=== PATIENT | male | born 1940 | race Caucasian/White ===

== ENCOUNTER 2016-10-19 04:32 | Inpatient (IN) ==
[2016-10-19] MEDS ORDERED: ASPIRIN 325 MG TABLET PO STA (04:52)
[2016-10-19] MEDS ORDERED: SODIUM CHLORIDE 0.9% 1,000 ML IV STA ×2 (04:52→08:41)
--- NOTE | 2016-10-19 04:55 | EKG Report ---
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
[2016-10-19] MEDS ORDERED: ASPIRIN 325 MG TABLET ONE (05:07)
[2016-10-19] MEDS ORDERED: ONDANSETRON 4 MG/2 ML VIAL ONE ×2 (05:07→08:24)
[2016-10-19] MEDS ORDERED: ONDANSETRON 4 MG/2 ML VIAL IV STA ×2 (05:27→08:41)
[2016-10-19] MEDS ORDERED: ACETAMINOPHEN 500 MG TABLET PO STA (05:38)
[2016-10-19] MEDS ORDERED: ACETAMINOPHEN 500 MG TABLET ONE (05:39)
[2016-10-19 05:41] LABS: Basophils % 0.5 % (0.0-0.8); Eosinophils % 0.9 % (0.00-10.9); Hematocrit 27.8 VOL% (42.0-52.0); Hemoglobin 9.6 GM/DL (14.0-18.0); Immature Granulocytes % 0.7 %; Immature Granulocytes Absolute 0.03 #; Lymphocytes # 0.7 10*3/uL (1.4-4.0); Lymphocytes % 16.1 % (21.2-54.2); Mean Corpuscular HGB Conc 34.5 GM/DL (32-36); Mean Corpuscular Hemoglobin 37 PG (27-34); Mean Corpuscular Volume 108.2 FL (87-102); Mean Platelet Volume 10.9 FL (9.6-12.0); Monocytes # 0.3 10*3/uL (0.11-0.8); Monocytes % 6.9 % (1.7-12.7); NRBC # 0.12 10*3/uL; Neutrophils # 3.3 10*3/uL (1.4-7.4); Neutrophils % 74.9 % (38.7-73.9); Platelet Count 167 T/CUMM (130-400); Red Blood Count 2.57 MC/CUMM (3.8-5.5); Red Cell Distribution Width 15.9 % (9.3-17.3); White Blood Count 4.3 T/CUMM (4-12)
[2016-10-19 05:52] LABS: Apearance,Urine Slightly Hazy (Clear); Bacteria,Urine Occasional /HPF (Few); Bilirubin,Urine Negative (Negative); Blood, Urine Negative (Negative); Glucose,Urine (UA) 50 mg/dL (Negative); Ketones,Urine Negative (Negative); Mucus,Urine Occasional /LPF (Occasional); Nitrite,Urine Negative (Negative); Protein,Urine Negative; RBC,Urine 3 /HPF (0-4); Squamous Epithelial Cell,Urine Occasional /HPF (0-10); Urine Color Yellow (Yellow); Urine Specific Gravity 1.016 (1.001-1.035); Urine Urobilinogen < 2.0 EU/DL (0.2-1.0); WBC,Urine 124 /HPF (0-6)
[2016-10-19] MEDS ORDERED: cefTRIAXone 1,000 MG in SODIUM CHLORIDE 0.9% 100 ML IV STA (05:57)
[2016-10-19] MEDS ORDERED: NITROGLYCERIN SL 0.4 MG TABLET SL ONE (05:59)
[2016-10-19] MEDS ORDERED: NITROGLYCERIN SL 0.4 MG TABLET SL STA (05:59)
[2016-10-19 06:02] LABS: Bilirubin,Total 0.7 MG/DL (0.2-1.0); Calcium 8.6 MG/DL (8.5-10.1); Osmolality,Calculated 286.8 MOS/KG (273-304); Potassium 4.4 MMOL/L (3.5-5.1); Total Protein 7.1 G/DL (6.4-8.3)
[2016-10-19] MEDS ORDERED: cefTRIAXone 1,000 MG VIAL ONE (06:04)
[2016-10-19] MEDS ORDERED: ALUM/MAG/SIMETH/LIDO VISC 1:1 30 ML BOTTLE PO ONE (06:08)
[2016-10-19] MEDS ORDERED: ALUM/MAG/SIMETH/LIDO VISC 1:1 30 ML BOTTLE PO STA (06:10)
[2016-10-19 06:28] LABS: Anisocytosis 1+; Band Neutrophils 7 % (0-10); Eosinophils 1 % (0-10); Lymphocytes 16 % (20-55); Macrocytosis 1+; Metamyelocytes 3 %; Nucleated Red Blood Cells 3 (0-5); Platelet Estimate Normal; Polychromasia Few; Segmented Neutrophils 68 % (50-85); Total Cells Counted 100
--- NOTE | 2016-10-19 07:47 | XRay Report ---
Portable chest Date: 10/19/2016 Clinical history: Chest pain Comparison: 12/19/2015 Technique: Portable AP sitting chest Findings: The heart is minimally enlarged with prior median sternotomy. Chronic scarring in the lungs. Stable mediastinum and osseous structures. Post operative findings at the cervicothoracic junction. Impression: No acute cardiopulmonary pathology identified. PROCEDURE INTERPRETED AT [facility]PARTMENT OF RADIOLOGY Final Report Signed by: Dr. Iona Smith
[2016-10-19] MEDS ORDERED: HYDROmorphone 2 MG/1 ML VIAL ONE (08:25)
[2016-10-19] MEDS ORDERED: HYDROmorphone 2 MG/1 ML VIAL IV ONE (08:40)
[2016-10-19] MEDS: SODIUM CHLORIDE 0.9% 1,000 ML IV SCH ×2 (08:43→16:44)
[2016-10-19] MEDS: PANTOPRAZOLE 40 MG TABLET PO SCH (09:36)
[2016-10-19] MEDS: DOCUSATE SODIUM 100 MG CAPSULE PO SCH ×2 (09:36→20:37)
[2016-10-19] MEDS: ENOXAPARIN 40 MG/0.4 ML SYRINGE SUBCUT SCH (09:37)
--- NOTE | 2016-10-19 10:29 | EKG Report ---
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
[2016-10-19 10:35] LABS: CKMB % 11.9 %
[2016-10-19 10:36] LABS: Troponin I Only 0.913 NG/ML (0.00-0.045)
--- NOTE | 2016-10-19 11:32 | Family Practice History&Phys ---
Assessment and Plan (1) Chest pain Status: Acute Assessment and plan: Apparently had a episode of significant chest pain with nausea vomiting early this a.m. Has known history of myocardial infarction 3, congestive heart failure, coronary bypass graft 2, previous angioplasty. Enzymes slightly elevated on admission. Will monitor and ask cardiology to assess Current Visit: Yes (2) UTI (urinary tract infection) Status: Acute Assessment and plan: Patient admitted with probable urinary tract infection with fever and chills. Cultures have been obtained and presently on empiric antibiotics. Has a history of myeloproliferative disease but present WBC is 4,300. Current Visit: Yes (3) CAD (coronary artery disease) Status: Chronic Assessment and plan: Has had trouble with unstable angina Current Visit: No (4) Hx of CABG Status: Chronic Assessment and plan: Status post coronary artery bypass graft 2 Current Visit: No (5) Myeloproliferative disease Status: Acute Assessment and plan: This is being followed by Dr. Haile. Current Visit: Yes (6) Diabetes mellitus Status: Chronic Assessment and plan: Stable at present. Will resume home medications and start sliding scale Current Visit: No Qualifiers: Diabetes mellitus type: type 2 Diabetes mellitus complication status: without complication Qualified Code(s): E11.9 - Type 2 diabetes mellitus without complications (7) Hypertension Status: Chronic Assessment and plan: Stable on present medications Current Visit: No Qualifiers: Hypertension type: essential hypertension Qualified Code(s): I10 - Essential (primary) hypertension History of Present Illness Chief complaint: Urinary tract infection and chest pain History of present illness: Mr. Allred is a 76 year old male PI Narrative: Patient is a 76 y/o male presenting to the ED with c/o chest pain which onset tonight. at the bedside is providing most of patient's history. She states that prior to going to bed tonight patient was fine. Upon coming back from urinating this morning patient came back complaining of severe dysuria. She states that patient also began to display tremors of bilateral hands, episodes of N/V, confusion, and had a fever of 100. During triage patient was noted to be febrile with a fever of 103.8. notes that patient was recently diagnosed with MDS and is a patient of Dr. Haile. Patient was given an injection of Procrit on 10/14 and his current sxs are the typical SE's of this injections per . She reports that patient's complaint of chest pain in the midst of the other sx's concerned her. She initially thought this chest pain may be stress related, but due to patient's significant cardiac history she became concerned. Patient did take a NTG PROMOTION MANAGER and states that his pain has somewhat eased off, but is not totally resolved. states that all of patient's small arteries are totally occluded. His last cardiac catheterization was about 2 years ago. He was last seen by his Continuous Process Rotary Drum Tanner, Dr. Vásquez a few months ago. PMHx significant for Cardiac Dysrhythmia, CHF, CAD, HTN, ND. Patient apparently saw Dr. Bassett on of this week for follow-up of his myeloproliferative disease. In view of history we will transfer her to telemetry for admission and consult cardiology in view of his significant history of coronary artery disease. Home Medications Medication Instructions Recorded Confirmed Type RX: Aspirin [Ecotrin] 81 mg PO DAILY 03/31/15 10/19/16 History RX: Calcium (Carb)/Vit D 500-200 1 tablet PO DAILY 03/31/15 10/19/16 History [Oscal 500 + D] RX: Carvedilol [Coreg] 12.5 mg PO BID 03/31/15 10/19/16 History RX: Digoxin Tab [Lanoxin Tab] 0.125 mg PO DAILY 03/31/15 10/19/16 History RX: Fenofibrate [Tricor] 145 mg PO DAILY 03/31/15 10/19/16 History RX: Furosemide Tab [Lasix Tab] 20 mg PO DAILY 03/31/15 10/19/16 History RX: Insulin Glargine [Lantus] 40 unit SUBCUT AC BREAKFAST 03/31/15 10/19/16 History RX: Oxycodone HCl/Acetaminophen 1 each PO QID PRN 04/08/15 10/19/16 History [Percocet 10-325 mg Tablet] RX: Atorvastatin [Lipitor] 40 mg PO DAILY 12/17/15 10/19/16 History RX: Glimepiride [Amaryl] 4 mg PO BID W/MEALS 12/17/15 10/19/16 History RX: Olmesartan [Benicar] 20 mg PO DAILY 12/17/15 10/19/16 History RX: Omeprazole 20 mg PO DAILY 12/17/15 10/19/16 History RX: Polyethylene Glycol Powder 17 gm PO DAILY 12/17/15 10/19/16 History [Miralax] RX: amLODIPine [Norvasc] 5 mg PO DAILY 12/17/15 10/19/16 History Nitroglycerin Sl Tab [Nitrostat] 0.4 mg SL Q5M PRN 12/20/15 10/19/16 History Fluticasone Propionate [Flonase 1 spray BOTH NARES DAILY 10/19/16 10/19/16 History Allergy Relief] Allergies Allergy/AdvReac Type Severity Reaction Status Date / Time ibuprofen Allergy Severe Unknown/Unable Verified 10/19/16 04:41 to obtain meperidine Allergy Severe RASH Verified 10/19/16 04:41 morphine Allergy Severe ITCHING Verified 10/19/16 04:41 epinephrine AdvReac Severe Shakiness Verified 10/19/16 04:41 STEROIDS AdvReac Intermediate Shakiness Uncoded 10/19/16 04:41 Medical,Surgical,& Family Hx - Medical History Cardio: History of: Cardiac Dysrhythmia (a fib), CHF, CAD, Hypertension, ND (X3) , Cardiovascular Problems (DR Vásquez [place] ATTOR[facility]. LAST SAW IN HOSPITAL 2 WEEKS.) Psychological: History of: Anxiety Disorders Neurology: History of: Migraine HEENT: History of: Ear Problem (hearing aids) Endocrine: History of: Diabetes Mellitus (IDDM) Respiratory: History of: Bronchitis, Respiratory Problems (STAPH INFECTION IN LUNGS) Renal: History of: Renal Failure (insufficiency) Genitourinary: History of: Prostate Problems Gastrointestinal: History of: GERD No history of: Gastrointestinal Bleed Musculoskeletal: History of: Back/Neck Problems (chronic back pain.) No history of: Amputation Hematology: History of: Anemia (MDS (sees Dr. Haile)) - Surgical History Cardiac Surgeries: Sugical HX of: Cardiac Surgery (2 bypass, stent placement), Carotid Endarterectomy Thoracic Surgeries: Patient denies;: Organ Transplant, Lobectomy Neurologic Surgeries: Patient denies: Neurologic Surgery HEENT Surgeries: Surgical HX of: Carotid Endarterectomy, Eye Surgery (BILATERAL CATARACT SURGERY, LT EYE SURGERY [address] WEISS.) Patient denies: Tonsilectomy & Adenoidectomy Abdominal Surgeries: Surgical HX of: Abdominal Surgery, Colonoscopy, EGD Reproductive Surgeries: Patient denies;: Genitourinary Surgery Orthopedic Surgeries: Surgical HX of;: Spinal Surgery (X6 NECK, BACK X4 LOWER BACK 2005.) - Family History Family History: Reports;: Family Diabetes, Family Heart Disease, Family Hypertension - Social History Smoking Status: Unknown if ever smoked Frequency of Alcohol Use: None Type of Drug Use: None Marital Status: Lives With:: Spouse Functional capacity: uses cane/walker Exam - Constitutional Vitals: Period Temp Pulse Resp BP Sys/Humphries Pulse Ox Last 24 Hr 98.3 F-103.8 F 98-100 18-20 118-140/62-76 94-96 General appearance: mild distress - Head Head exam: Present: normal inspection - Eye Pupils: Present: DANIEL - ENT ENT exam: Present: normal exam - Respiratory Respiratory exam: Present: clear to auscultation bilaterally - Cardiovascular Cardiovascular exam: Present: irregular rhythm - GI/Abdominal GI/Abdominal exam: Present: normal bowel sounds, soft - Extremities Exam Extremities exam: Present: normal inspection - Back Exam Back exam: Present: vertebral tenderness - Neurological Exam Neurological exam: Present: alert, oriented X3 - Psychiatric Psychiatric exam: Present: normal affect - Skin Skin exam: Present: normal color Results - Labs CBC & BMP: 10/19/16 05:10 10/19/16 05:10
--- NOTE | 2016-10-19 12:20 | EKG Report ---
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
[2016-10-19] MEDS ORDERED: NITROGLYCERIN SL 0.4 MG TABLET SL PRN (13:22)
[2016-10-19] MEDS: oxyCODONE/ACETAMINOPHEN 5-325 MG TABLET PO PRN ×2 (14:40→20:37)
[2016-10-19] MEDS: ASPIRIN EC 81 MG TABLET PO SCH (14:41)
[2016-10-19] MEDS: CALCIUM (CARBONATE)/VITAMIN D 500 MG-200 UNIT TABLET PO SCH (14:41)
[2016-10-19] MEDS: amLODIPine 5 MG TABLET PO SCH (14:41)
[2016-10-19] MEDS: FUROSEMIDE 20 MG TABLET PO SCH (14:42)
[2016-10-19] MEDS: OLMESARTAN 20 MG TABLET PO SCH (14:42)
[2016-10-19] MEDS: FENOFIBRATE 145 MG TABLET PO SCH (14:42)
[2016-10-19] MEDS: DIGOXIN 0.125 MG TABLET PO SCH (14:43)
[2016-10-19] MEDS: CARVEDILOL 12.5 MG TABLET PO SCH ×2 (14:44→22:41)
[2016-10-19] MEDS: FLUTICASONE 50 MCG NASAL SPRAY 16 GM BOTTLE BOTH NARES SCH ×2 (14:44→20:40)
[2016-10-19] MEDS: POLYETHYLENE GLYCOL POWDER 17 GM PACK PO SCH (14:46)
--- NOTE | 2016-10-19 14:59 | EKG Report ---
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
[2016-10-19] MEDS: GLIMEPIRIDE 4 MG TABLET PO SCH (16:35)
[2016-10-19] MEDS: ACETAMINOPHEN 325 MG TABLET PO PRN (16:44)
--- NOTE | 2016-10-19 18:40 | EKG Report ---
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
[2016-10-19] MEDS: INSULIN LISPRO 100 UNIT/ML SUBCUT SCH (20:38)
[2016-10-20] MEDS: ONDANSETRON 4 MG/2 ML VIAL IV PRN (01:23)
[2016-10-20] MEDS: SODIUM CHLORIDE 0.9% 1,000 ML IV SCH ×3 (02:53→14:31)
[2016-10-20 04:57] LABS: Basophils % 0.2 % (0.0-0.8); Eosinophils % 0.2 % (0.00-10.9); Hematocrit 25.5 VOL% (42.0-52.0); Hemoglobin 8.6 GM/DL (14.0-18.0); Immature Granulocytes % 1.5 %; Immature Granulocytes Absolute 0.08 #; Lymphocytes # 1.2 10*3/uL (1.4-4.0); Lymphocytes % 21.2 % (21.2-54.2); Mean Corpuscular HGB Conc 33.7 GM/DL (32-36); Mean Corpuscular Hemoglobin 38 PG (27-34); Mean Corpuscular Volume 111.4 FL (87-102); Mean Platelet Volume 11.2 FL (9.6-12.0); Monocytes # 0.2 10*3/uL (0.11-0.8); Monocytes % 4.4 % (1.7-12.7); NRBC # 0.08 10*3/uL; Neutrophils # 3.9 10*3/uL (1.4-7.4); Neutrophils % 72.5 % (38.7-73.9); Platelet Count 137 T/CUMM (130-400); Red Blood Count 2.29 MC/CUMM (3.8-5.5); Red Cell Distribution Width 16.1 % (9.3-17.3); White Blood Count 5.4 T/CUMM (4-12)
[2016-10-20 05:24] LABS: Band Neutrophils 3 % (0-10); Eosinophils 1 % (0-10); Lymphocytes 18 % (20-55); Metamyelocytes 1 %; Segmented Neutrophils 70 % (50-85); Total Cells Counted 100
[2016-10-20 05:26] LABS: Platelet Estimate Normal; Polychromasia Few
[2016-10-20 05:27] LABS: Anisocytosis Slight; Macrocytosis Slight
[2016-10-20 05:31] LABS: Calcium 7.7 MG/DL (8.5-10.1); Magnesium 2.1 MG/DL (1.8-2.4); Osmolality,Calculated 289.5 MOS/KG (273-304); Risk Ratio 8.33; VLDL CHOLESTEROL 144.2 MG/DL
[2016-10-20] MEDS: oxyCODONE/ACETAMINOPHEN 5-325 MG TABLET PO PRN ×3 (05:46→17:22)
--- NOTE | 2016-10-20 08:03 | EKG Report ---
Stationary ECG Study 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
--- NOTE | 2016-10-20 08:23 | Internal Med Progress Note ---
Assessment and Plan (1) UTI (urinary tract infection) Status: Acute Assessment and plan: 76-year-old male admitted to acute care * Urinary tract infection and possible sepsis. Patient had high-grade fever with chills and his urinalysis had numerous WBCs. Patient was given initial dose of antibiotics in the emergency room. Will add Levaquin to the Rocephin. Blood and urine cultures are pending * Chest pain. It happened when he was having fever and chills. Probably related to above. Patient has significant coronary artery disease and has inoperable disease. His last cardiac cath was about 2 years ago. He has had CABG twice. His troponin was elevated. She may have had a non-STEMI. Cardiology will see him in consultation. * Diabetes. Blood sugars are high. Will keep him on insulin and sliding * Chronic back pain. Continue treatment * Will decrease fluids. His BNP is high today. * Discussed with patient and his . Current Visit: Yes (2) Chest pain Status: Acute Current Visit: Yes (3) Myeloproliferative disease Status: Acute Current Visit: Yes (4) Diabetes mellitus Status: Acute Current Visit: No (5) Diastolic heart failure Status: Acute Current Visit: No (6) Gastroesophageal reflux disease Status: Acute Current Visit: No (7) Lung abnormality Problem details: suspicion of lung mass RUQ Status: Acute Current Visit: No (8) CAD (coronary artery disease) Status: Chronic Current Visit: No (9) Hx of CABG Status: Chronic Current Visit: No (10) Hypertension Status: Chronic Current Visit: No Qualifiers: Hypertension type: essential hypertension Qualified Code(s): I10 - Essential (primary) hypertension Internal Medicine - PN: Subj Interval history: Patient seen and examined. Chart reviewed. 76-year-old male with history of significant coronary artery disease status post CABG times, hypertension, CHF, diabetes, severe back pain who was admitted with fever and chills and high- grade fever. He came to the emergency room because of chest pain. Patient has stable angina most of the time. He was previously followed by Dr. Coelho and is now followed by Dr. Vásquez. Patient also has myelodysplastic syndrome and is followed by Dr. Haile. He was given injection of Procrit last week. Patient's symptoms started after he had to urinate. He developed severe dysuria along with chills which were shaking and became cold and clammy. He is feeling somewhat better today. He denies any nausea or vomiting now. He did vomit at the time of fever and chills. Exam (Progress Note) - Constitutional Vitals: Period Temp Pulse Resp BP Sys/Humphries Pulse Ox Last 24 Hr 98.0 F-98.6 F 77-100 16-20 112-121/45-62 94-98 Exam: Examination: GENERAL: NAD. He appears anxious HEENT: PERRLA. EOMI. Mucous membranes are moist. NECK: Neck is supple. Bilateral carotid bruit CVS: Regular rate and rhythm. S1 and S2 are normal. Systolic murmur at left lower sternal border RESPIRATORY: Lungs are clear. No rales or rhonchi. ABDOMEN: Soft and nontender. Bowel sounds are present. No hepatosplenomegaly. EXT: No edema. Peripheral pulses are present. DAYCARE MANAGER: Patient is awake, alert and oriented to time place and person. Cranial nerves II through XII are grossly intact. Motor strength is 4/5 SKIN: Warm and dry. MSK: No obvious deformity. Results - Labs CBC & BMP: 10/20/16 04:34 10/20/16 04:34 Lab Results: I have reviewed the past 24 hour labs
[2016-10-20] MEDS ORDERED: DEXTROSE 50% 25 GM/50 ML VIAL IV PRN (08:32)
[2016-10-20] MEDS ORDERED: GLUCAGON 1 MG VIAL IM PRN (08:32)
[2016-10-20] MEDS ORDERED: SODIUM CHLORIDE 0.9% 1,000 ML IV SCH (09:00)
[2016-10-20] MEDS ORDERED: NON-FORMULARY MEDICATION (Omeprazole [Omeprazole] 20 MG) PO SCH (09:00)
[2016-10-20] MEDS: INSULIN GLARGINE 100 UNIT/ML SUBCUT SCH (09:58)
[2016-10-20] MEDS: INSULIN LISPRO 100 UNIT/ML SUBCUT SCH ×4 (09:59→22:39)
[2016-10-20] MEDS: POLYETHYLENE GLYCOL POWDER 17 GM PACK PO SCH (10:00)
[2016-10-20] MEDS: ALPRAZolam 0.25 MG TABLET PO PRN ×2 (10:01→22:38)
[2016-10-20] MEDS: ENOXAPARIN 40 MG/0.4 ML SYRINGE SUBCUT SCH (10:01)
[2016-10-20] MEDS: CALCIUM (CARBONATE)/VITAMIN D 500 MG-200 UNIT TABLET PO SCH (10:01)
[2016-10-20] MEDS: CARVEDILOL 12.5 MG TABLET PO SCH ×2 (10:01→22:38)
[2016-10-20] MEDS: PANTOPRAZOLE 40 MG TABLET PO SCH (10:02)
[2016-10-20] MEDS: FENOFIBRATE 145 MG TABLET PO SCH (10:02)
[2016-10-20] MEDS: FUROSEMIDE 20 MG TABLET PO SCH (10:02)
[2016-10-20] MEDS: ASPIRIN EC 81 MG TABLET PO SCH (10:02)
[2016-10-20] MEDS: amLODIPine 5 MG TABLET PO SCH (10:02)
[2016-10-20] MEDS: DOCUSATE SODIUM 100 MG CAPSULE PO SCH ×2 (10:02→22:38)
[2016-10-20] MEDS: GLIMEPIRIDE 4 MG TABLET PO SCH ×2 (10:02→17:08)
[2016-10-20] MEDS: OLMESARTAN 20 MG TABLET PO SCH (10:03)
[2016-10-20] MEDS: DIGOXIN 0.125 MG TABLET PO SCH (10:03)
[2016-10-20] MEDS: ATORVASTATIN 40 MG TABLET PO SCH (10:03)
[2016-10-20] MEDS: cefTRIAXone 1,000 MG in SODIUM CHLORIDE 0.9% 100 ML IV SCH (10:16)
--- NOTE | 2016-10-20 10:18 | EKG Report ---
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
[2016-10-20] MEDS: LEVOFLOXACIN INJ 500 MG in PREMIX 1 EACH IV SCH (10:52)
[2016-10-20] MEDS: FLUTICASONE 50 MCG NASAL SPRAY 16 GM BOTTLE BOTH NARES SCH (10:53)
[2016-10-20] MEDS ORDERED: INSULIN LISPRO 100 UNIT/ML SUBCUT SCH (11:30)
[2016-10-20] MEDS: ACETAMINOPHEN 325 MG TABLET PO PRN ×2 (12:43→19:58)
--- NOTE | 2016-10-20 15:27 | XRay Report ---
XR chest 2V Indication: SOB Comparison: Chest x-ray dated October 19, 2016 Technique: Frontal and lateral views of the chest. Findings: Continued mild cardiomegaly status post sternotomy. Chronic change of the lungs without focal consolidation, pleural effusion, or pneumothorax. Visualized osseous and surrounding soft tissue structures appear grossly unchanged. IMPRESSION: Stable chest x-ray without acute cardiopulmonary process demonstrated. Continued mild cardiomegaly without chanda pulmonary edema. PROCEDURE INTERPRETED AT [facility] DEPARTMENT OF RADIOLOGY Final Report Signed by: Dr Beto Scott
--- NOTE | 2016-10-20 17:51 | ECHO Report ---
Ross Allred Exam Date: 10/20/2016 10:49 Referring Physician: Technologist: Marisa Walters Age: 76 Ht (in): 69 Wt (lb): 199 Gender: M Exam Location: [facility] Echo Indications: Chest pain, unspecified, Essential (primary) hypertension, CAD with previous CABG, Myelodysplasic syndrome, UTI, IDDM, Diastolic heart failure BP: 100 / 57 HR: 79 Rhythm: Sinus Technical Quality: IMPRESSIONS 2-3+ left atrial enlargement 2+ concentric LVH Severely reduced LV systolic function with paradoxical septal motion estimate ejection fraction of 20-25% Aortic sclerosis without stenosis 3+ mitral regurgitation due to incomplete closure 2+ tricuspid regurgitation with RVSP 36 mmHg plus RAP MEASUREMENTS (Male / Female) Normal Values 2D ECHO LV Diastolic Diameter PLAX 5.1 cm 4.2 - 5.9 / 3.9 - 5.3 cm LV Systolic Diameter PLAX 4.6 cm LV Fractional Shortening PLAX 8.1 % IVS Diastolic Thickness 1.8 cm 0.6 - 1.0 / 0.6 - 0.9 cm LVPW Diastolic Thickness 1.7 cm 0.6 - 1.0 / 0.6 - 0.9 cm RV Internal Dim ED PLAX 3.3 cm Aortic Root Diameter 3.4 cm LA Systolic Diameter LX 4.6 cm 3.0 - 4.0 / 2.7 - 3.8 cm DOPPLER TR Peak Velocity 299.0 cm/s TR Peak Gradient 35.8 mmHg FINDINGS Left Ventricle Normal left ventricular cavity size. Moderate left ventricular hypertrophy. Left ventricular ejection fraction is estimated at 20 %. Right Ventricle The right ventricle is normal in size and function. Right Atrium Moderately increased right atrial size. Left Atrium Moderately increased left atrial size. Mitral Valve Morphologically normal mitral valve. Moderate-severe mitral valve regurgitation. Aortic Valve Morphologically normal aortic valve without significant sclerosis or stenosis. There is no aortic regurgitation. Tricuspid Valve Morphologically normal tricuspid valve. Mitumzaj-de-itgyut tricuspid valve regurgitation. Pulmonic Valve Morphologically normal pulmonic valve. Mild pulmonary valve regurgitation. Pericardium Normal pericardium without effusion. Aorta Normal ascending aorta dimension. Beau Otto (Electronically Signed) Final Date: 20 October 2016 17:49
--- NOTE | 2016-10-20 17:58 | Cardiology Consult Note ---
Sushila Remdond April, RN, am scribing for, and in the presence of, Beau Otto MD 17:53. Assessment and Plan - Time spent with patient Time spent with patient: Greater than 30 minutes (Due to assessment, planning, documentation, medication review) (1) Chest pain Status: Acute Assessment and plan: 1. 76-year-old WM with hypertension, diabetes, dyslipidemia, known severe CAD status post 2 separate CABG operations most recently in 2004 with multiple stents since that time including multiple stents and vein grafts, now presents with UTI associated with temperature 103 with chest pain lasting for 3 hours and rise and fall troponin suggesting non-STEMI (rising from 0-1.2 on the third set), with chronic nonspecific interventricular conduction delay. 2. Mr. Allred his chest pain is resolved but he still has dyspnea 3. He apparently has some sort of myelodysplastic syndrome followed by Dr. Haile , and received a Procrit shot about a week ago. He reports his hematocrit was about 29% that time and is now dropped from 27-25-1/2%; consult Dr. Haile. 4. Long history of moderate to severe ischemic cardiomyopathy with EF 20-25% which appears to be down from moderately reduced in 2015. 5. Has been on baby aspirin and Effient until his Effient was held on admission. 6. Heme test stool 7. Consider heart cath at a later time depending what his hematocrit does and how he does clinically with treatment of his infection/recurrence of angina. Current Visit: Yes Qualifiers: Chest pain type: chest pain on breathing Qualified Code(s): R07.1 - Chest pain on breathing (2) CAD (coronary artery disease) Status: Chronic Current Visit: Yes (3) Diabetes mellitus Status: Chronic Current Visit: Yes Qualifiers: Diabetes mellitus type: type 2 Diabetes mellitus complication status: without complication (4) Hypertension Status: Chronic Current Visit: Yes Qualifiers: Hypertension type: essential hypertension Qualified Code(s): I10 - Essential (primary) hypertension (5) Chronic back pain Status: Chronic Current Visit: Yes (6) Anemia Status: Chronic Current Visit: Yes Qualifiers: Other causes of anemia: chronic disease, kidney (7) Hx of CABG Status: Chronic Current Visit: No History of Present Illness - Data of Consult Patient: known to practice within the last 3 years Consult date: 10/19/16 Requesting Physician: Junior Rivera Primary care physician: Valentino Greenwood - Consult Narrative Reason for consult: Chest pain History of present illness: Editor: Dr. Vásquez PCP: Dr. Greenwood Mr. Allred is a 76 year old male who is routinely followed by Dr. Vásquez with a history of CAD, diabetes, hypertension, dyslipidemia, paroxysmal atrial fibrillation, anemia, and arthritis. Dr. Haile treats his anemia and he received his first shot of Procrit this past . He has had CABG 2, the first in 1985 (saphenous vein graft to the LAD and saphenous vein graft to the right coronary) and the most recent in 2004 (FUENTES to obtuse marginal, saphenous vein to LAD, and saphenous vein the right coronary). He has had several heart caths since that time. In June 2010, he received a stent in the first obtuse marginal branch past the left internal mammary artery insertion site. In February 2012 received a stent to the lesion in the mid graft to the LAD. His most recent cath was April 15, 2013 with the following findings: 1. Left ventricle was dilated with ejection fraction 25%. 2. Left ventricular end-diastolic pressure is 25 mmHg. 3. Aortic valve is probably tricuspid structure without significant gradient. 4. There is no significant mitral regurgitation demonstrated. 5. Left main coronary artery with 50% ostial stenosis and 20% stenosis in the more distal left main coronary artery. 6. Left ventricular artery is totally occluded proximally and at its ostium. The mid and distal vessel are widely patent seen by way of saphenous vein graft. 7. Saphenous artery is patent with 20% proximal first obtuse marginal disease. The stent in the first obtuse marginal beyond the mammary graft is widely patent. 8. Right coronary artery is totally occluded proximally with distal vessel seen by with saphenous vein is totally occluded and this is an known old finding. Collaterals of the left and right system are visualized. 9. Saphenous graft of the left anterior descending is widely patent as is the stent in its midportion. 10. Left ventricular artery graft to the obtuse marginal branch is widely patent. There is no associated graft in the right coronary and in the past have been occluded in multiple studies. Echocardiogram done September 18, 2014 with ejection fraction of 30-35%. Other surgical history includes sinus surgery, hernia repair, and multiple neck and back surgeries. Family history is positive for both parents and siblings with heart disease and sister with diabetes. He no longer smokes, reportedly quit in 1984. Mr. Allred was in his usual state of health until he woke up around 130 or 2 AM Thursday morning to go the bathroom and began to complain of burning with urination, chills, nausea vomiting, chest pain, shortness of breath. He reports he is chronically short of breath but this was worse than usual. The chest pain and the shortness of breath came on at rest but both seem to get worse with exertion. He describes the chest pain has a dull pain all the way across the top of his chest. He says that it was a constant pain and he rates it a 4 on a scale of 1-10. He says the pain did radiate into his shoulders. He can identify no triggers or alleviators while at home. He says his heart rate was elevated when he presented emergency department and that the pain was relieved after his heart rate was lower. Of note he and his both say that he does have some chest pain any time he is under stress. H&H on admission was 9.6 and 27.8, this morning is down to 8.6 and 25.5. BUN and creatinine is elevated at 24 and 1.6. Troponin on admission was 0.036, on recheck it increased to 0.913 and 1.600. Urinalysis showed leukocytosis. He has been started on Levaquin and Rocephin. EKG on admission showed sinus rhythm with bundle branch block, heart rate of 95. Chest x-ray with no acute cardiopulmonary pathology identified. His triglycerides are elevated at 721. He takes Lipitor 40 mg daily at home, TriCor 145 p.o. daily has been added to his regimen. This morning he states he has had no pain since he was in the emergency department. He continues to be slightly more short of breath than is normal for him. He was afebrile during the night. Urine and blood cultures pending. EKG this morning sinus rhythm with heart rate of 77. CC: Valentino Greenwood MD - Home Medications and Allergies Home Medications: Home Medications Medication Instructions Recorded Confirmed Type Aspirin [Ecotrin] 81 mg PO DAILY 03/31/15 10/19/16 History Calcium (Carb)/Vit D 500-200 1 tablet PO DAILY 03/31/15 10/19/16 History [Oscal 500 + D] Carvedilol [Coreg] 12.5 mg PO BID 03/31/15 10/19/16 History Digoxin Tab [Lanoxin Tab] 0.125 mg PO DAILY 03/31/15 10/19/16 History Fenofibrate [Tricor] 145 mg PO DAILY 03/31/15 10/19/16 History Furosemide Tab [Lasix Tab] 20 mg PO DAILY 03/31/15 10/19/16 History Insulin Glargine [Lantus] 40 unit SUBCUT AC BREAKFAST 03/31/15 10/19/16 History Oxycodone HCl/Acetaminophen 1 each PO QID PRN 04/08/15 10/19/16 History [Percocet 10-325 mg Tablet] Atorvastatin [Lipitor] 40 mg PO DAILY 12/17/15 10/19/16 History Glimepiride [Amaryl] 4 mg PO BID W/MEALS 12/17/15 10/19/16 History Olmesartan [Benicar] 20 mg PO DAILY 12/17/15 10/19/16 History Omeprazole 20 mg PO DAILY 12/17/15 10/19/16 History Polyethylene Glycol Powder 17 gm PO DAILY 12/17/15 10/19/16 History [Miralax] amLODIPine [Norvasc] 5 mg PO DAILY 12/17/15 10/19/16 History Nitroglycerin Sl Tab [Nitrostat] 0.4 mg SL Q5M PRN 12/20/15 10/19/16 History Fluticasone Propionate [Flonase 1 spray BOTH NARES DAILY 10/19/16 10/19/16 History Allergy Relief] Allergies/Adverse Reactions: Allergies Allergy/AdvReac Type Severity Reaction Status Date / Time ibuprofen Allergy Severe Unknown/Unable Verified 10/19/16 04:41 to obtain meperidine Allergy Severe RASH Verified 10/19/16 04:41 morphine Allergy Severe ITCHING Verified 10/19/16 04:41 epinephrine AdvReac Severe Shakiness Verified 10/19/16 04:41 STEROIDS AdvReac Intermediate Shakiness Uncoded 10/19/16 04:41 - Constitutional Constitutional: Present: as per HPI - EENT Eyes: Present: other (Eye implants) Ears: Present: decreased hearing. Absent: ear pain, tinnitus Nose, mouth and throat: Present: headache(s), neck pain. Absent: dysphagia, epistaxis - Cardiovascular Cardiovascular: Present: chest pain at rest, dyspnea, dyspnea on exertion, lightheadedness. Absent: edema, radiating jaw, neck or arm pain, orthopnea, palpitations - Respiratory Respiratory: Present: dyspnea, dyspnea on exertion. Absent: hemoptysis, wheezing - Gastrointestinal Gastrointestinal: Present: constipation, nausea, vomiting. Absent: abdominal pain, diarrhea, hematemesis, hematochezia, melena - Genitourinary Genitourinary: Present: dysuria. Absent: hematuria - Musculoskeletal Musculoskeletal: Present: back pain, limited range of motion, muscle weakness - Neurological Neurological: Present: dizziness, frequent falls, headache(s), other (Near syncope). Absent: confusion, syncope - Psychiatric Psychiatric: Absent: anxiety, depression - Endocrine Endocrine: Present: fatigue - Hematologic/Lymphatic Hematologic/Lymphatic: Present: easy bruising. Absent: easy bleeding Medical,Surgical,& Family Hx - Medical History Cardio: History of: Cardiac Dysrhythmia (a fib), CHF, CAD, Hypertension, [place] (X3) Psychological: History of: Anxiety Disorders Neurology: History of: Migraine HEENT: History of: Ear Problem (hearing aids), Eye Problem (Eye implants) Endocrine: History of: Diabetes Mellitus (IDDM) Respiratory: History of: Bronchitis, Respiratory Problems (STAPH INFECTION IN LUNGS) Renal: History of: Renal Failure (insufficiency) Genitourinary: History of: Prostate Problems Gastrointestinal: History of: GERD Musculoskeletal: History of: Back/Neck Problems (chronic back pain.) Hematology: History of: Anemia (MDS (sees Dr. Haile)) - Surgical History Cardiac Surgeries: Sugical HX of: Cardiac Surgery (2 bypass, stent placement) HEENT Surgeries: Surgical HX of: Carotid Endarterectomy, Eye Surgery (BILATERAL CATARACT SURGERY) Abdominal Surgeries: Surgical HX of: Abdominal Surgery, Colonoscopy, EGD Orthopedic Surgeries: Surgical HX of;: Spinal Surgery (X6 NECK, BACK X4 LOWER BACK 2004.) - Family History Family History: Reports;: Family Diabetes (Sister), Family Heart Disease ( Father mother brother sister) - Social History Smoking Status: Former smoker (Quit in 1984) Have you smoked in the last 12 months: No Frequency of Alcohol Use: None Type of Drug Use: None Marital Status: Lives With:: Spouse Functional capacity: uses cane/walker Physical Examination Vital Signs Temp Pulse Resp BP Pulse Ox 103.8 F H 98 H 18 140/76 94 L 10/19/16 04:33 10/19/16 04:33 10/19/16 04:33 10/19/16 04:33 10/19/16 04:33 General: Present: Appears Well, No Apparent Distress HEENT: Present: PERRL, Mucus Membranes Moist Neck: Present: Supple Neck, Midline Trachea, No Bruit Cardiac: Present: Reg Rate and Rhythm, Systolic Murmur Lungs: Present: Normal Breath Sounds, No Wheeze, Rales, Rhonchi Neuro: Absent: Resting Tremor, Essential Tremor Abdomen: Present: Soft, Active Bowel Sounds, Tender. Absent: Distended Skin: Absent: Rash, Suspicious Lesions Musculoskeletal: Present: Decreased Range of Motion, Pain in Joint Extremities: Present: No Edema, Normal Upper Extr. Pulses, Left Lower Pulse ( Not palpable), Right Lower Pulse (2+) Result/EKG - Labs CBC & BMP: 10/20/16 04:34 10/20/16 04:34 Lab Results: I have reviewed the past 24 hour labs Labs: Laboratory Results - last 24 hr 10/19/16 10/19/16 10/19/16 09:07 09:34 10:37 WBC RBC Hgb Hct MCV MCH MCHC RDW Plt Count MPV Neut % (Auto) Lymph % (Auto) [place] % (Auto) Eos % (Auto) Baso % (Auto) Neut # (Auto) Lymph # (Auto) [place] # (Auto) Eos # (Auto) Baso # (Auto) Total Counted Immature Gran % Nucleated RBC % Immature Gran # Segmented Neutrophils Band Neutrophils Lymphocytes Monocytes Eosinophils Basophils Metamyelocytes Nucleated RBCs # Platelet Estimate Polychromasia Anisocytosis Macrocytosis Sodium Potassium Chloride Carbon Dioxide Anion Gap BUN Creatinine GFR Calculation BUN/Creatinine Ratio Glucose POC Glucose 346 H Calculated Osmolality Calcium Magnesium Total Creatine Kinase 101 CK-MB (CK-2) 12.0 H CK and CKMB Interp 11.9 Troponin I 0.913 H D 1.600 H D B-Natriuretic Peptide Triglycerides Cholesterol LDL Cholesterol VLDL Cholesterol HDL Cholesterol Heart Disease Risk Ratio Digoxin 10/19/16 10/20/16 10/20/16 20:07 04:34 04:34 WBC 5.4 RBC 2.29 L Hgb 8.6 L Hct 25.5 L MCV 111.4 H MCH 38 H MCHC 33.7 RDW 16.1 Plt Count 137 MPV 11.2 Neut % (Auto) 72.5 Lymph % (Auto) 21.2 [place] % (Auto) 4.4 Eos % (Auto) 0.2 Baso % (Auto) 0.2 Neut # (Auto) 3.9 Lymph # (Auto) 1.2 L [place] # (Auto) 0.2 Eos # (Auto) 0.0 Baso # (Auto) 0.0 Total Counted 100 Immature Gran % 1.5 Nucleated RBC % 1.5 Immature Gran # 0.08 Segmented Neutrophils 70 Band Neutrophils 3 Lymphocytes 18 L Monocytes 6 Eosinophils 1 Basophils 1.0 H Metamyelocytes 1 Nucleated RBCs # 0.08 Platelet Estimate Normal Polychromasia Few Anisocytosis Slight Macrocytosis Slight Sodium Potassium Chloride Carbon Dioxide Anion Gap BUN Creatinine GFR Calculation BUN/Creatinine Ratio Glucose POC Glucose 387 H Calculated Osmolality Calcium Magnesium Total Creatine Kinase CK-MB (CK-2) CK and CKMB Interp Troponin I B-Natriuretic Peptide Triglycerides Cholesterol LDL Cholesterol VLDL Cholesterol HDL Cholesterol Heart Disease Risk Ratio Digoxin 1.10 10/20/16 10/20/16 10/20/16 04:34 04:34 08:29 WBC RBC Hgb Hct MCV MCH MCHC RDW Plt Count MPV Neut % (Auto) Lymph % (Auto) [place] % (Auto) Eos % (Auto) Baso % (Auto) Neut # (Auto) Lymph # (Auto) [place] # (Auto) Eos # (Auto) Baso # (Auto) Total Counted Immature Gran % Nucleated RBC % Immature Gran # Segmented Neutrophils Band Neutrophils Lymphocytes Monocytes Eosinophils Basophils Metamyelocytes Nucleated RBCs # Platelet Estimate Polychromasia Anisocytosis Macrocytosis Sodium 139 Potassium 5.0 Chloride 105 Carbon Dioxide 26 Anion Gap 13.0 BUN 24 H Creatinine 1.50 H GFR Calculation 53 BUN/Creatinine Ratio 16.00 Glucose 255 H POC Glucose 291 H Calculated Osmolality 289.5 Calcium 7.7 L Magnesium 2.1 Total Creatine Kinase CK-MB (CK-2) CK and CKMB Interp Troponin I B-Natriuretic Peptide 601 H Triglycerides 721 H Cholesterol 150 LDL Cholesterol 30.0 VLDL Cholesterol 144.2 HDL Cholesterol 18 L Heart Disease Risk Ratio 8.33 Digoxin - Diagnostic Findings Procedure: Chest x-ray: report reviewed by me - EKG EKG results: interpreted by me EKG shows: sinus rhythm Clarita Redmond Randall Scott, MD, personally performed the services described in this documentation, ascribed by Sherron Conti RN in my presence, and it is both accurate and complete .
[2016-10-21] MEDS: oxyCODONE/ACETAMINOPHEN 5-325 MG TABLET PO PRN ×3 (05:08→20:17)
[2016-10-21 05:26] LABS: Basophils % 0.2 % (0.0-0.8); Eosinophils # 0.1 10*3/uL (0.0-0.87); Eosinophils % 1.8 % (0.00-10.9); Hematocrit 23.7 VOL% (42.0-52.0); Hemoglobin 8.1 GM/DL (14.0-18.0); Immature Granulocytes Absolute 0.09 #; Lymphocytes # 0.9 10*3/uL (1.4-4.0); Lymphocytes % 19.6 % (21.2-54.2); Mean Corpuscular HGB Conc 34.2 GM/DL (32-36); Mean Corpuscular Hemoglobin 38 PG (27-34); Mean Corpuscular Volume 110.7 FL (87-102); Mean Platelet Volume 11.1 FL (9.6-12.0); Monocytes # 0.3 10*3/uL (0.11-0.8); Monocytes % 6.8 % (1.7-12.7); NRBC # 0.07 10*3/uL; Neutrophils # 3.1 10*3/uL (1.4-7.4); Neutrophils % 69.6 % (38.7-73.9); Red Blood Count 2.14 MC/CUMM (3.8-5.5); Red Cell Distribution Width 16.3 % (9.3-17.3); White Blood Count 4.4 T/CUMM (4-12)
[2016-10-21 05:29] LABS: Platelet Count 107 T/CUMM (130-400)
[2016-10-21 05:49] LABS: Band Neutrophils 7 % (0-10); Eosinophils 1 % (0-10); Lymphocytes 20 % (20-55); Nucleated Red Blood Cells 1 (0-5); Platelet Estimate Decreased; Segmented Neutrophils 68 % (50-85); Total Cells Counted 100
[2016-10-21 05:50] LABS: Calcium 7.2 MG/DL (8.5-10.1); Hypochromasia 1+; Macrocytosis Slight; Osmolality,Calculated 282.8 MOS/KG (273-304); Ovalocytes Slight; Potassium 4.3 MMOL/L (3.5-5.1)
[2016-10-21] MEDS: SODIUM CHLORIDE 0.9% 1,000 ML IV SCH (07:15)
--- NOTE | 2016-10-21 07:45 | Internal Med Progress Note ---
Assessment and Plan (1) UTI (urinary tract infection) Status: Acute Assessment and plan: 76-year-old male admitted to acute care * Urinary tract infection and possible sepsis. Urine growing gram-negative rods. Continue current antibiotic * Non-STEMI. Cardiology is following. Echocardiogram noted * Diabetes. Blood sugars are high. Will keep him on insulin and sliding * Chronic back pain. Continue treatment * Cardiomyopathy. Ischemic. Will reduce IV fluid * Anemia. Hematocrit is low. Will transfuse him 2 units of packed RBCs * Discussed with patient and his . Current Visit: Yes (2) Chest pain Status: Acute Current Visit: Yes (3) Myeloproliferative disease Status: Acute Current Visit: Yes (4) Diabetes mellitus Status: Acute Current Visit: No (5) Diastolic heart failure Status: Acute Current Visit: No (6) Gastroesophageal reflux disease Status: Acute Current Visit: No (7) Lung abnormality Problem details: suspicion of lung mass RUQ Status: Acute Current Visit: No (8) CAD (coronary artery disease) Status: Chronic Current Visit: Yes (9) Hx of CABG Status: Chronic Current Visit: No (10) Hypertension Status: Chronic Current Visit: Yes Qualifiers: Hypertension type: essential hypertension Qualified Code(s): I10 - Essential (primary) hypertension Internal Medicine - PN: Subj Interval history: Patient is feeling better today. He still quite weak. He denies any chest pain or shortness of breath. He denies any nausea or vomiting. He is aching all over the body Exam (Progress Note) - Constitutional Vitals: Period Temp Pulse Resp BP Sys/Humphries Pulse Ox Last 24 Hr 97.5 F-99.6 F 72-88 17-20 100-116/50-58 96-98 Exam: Examination: GENERAL: NAD. He appears anxious HEENT: PERRLA. EOMI. NECK: Neck is supple. Bilateral carotid bruit CVS: Regular rate and rhythm. S1 and S2 are normal. Systolic murmur at left lower sternal border RESPIRATORY: Lungs are clear. ABDOMEN: Soft and nontender. EXT: No edema. Peripheral pulses are present. 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 MSK: No obvious deformity. Results - Labs CBC & BMP: 10/21/16 05:00 10/21/16 05:00 Lab Results: I have reviewed the past 24 hour labs
[2016-10-21] MEDS ORDERED: SODIUM CHLORIDE 0.9% 250 ML IV PRN (07:46)
[2016-10-21] MEDS ORDERED: FUROSEMIDE 40 MG/4 ML VIAL IV SCH (08:00)
[2016-10-21] MEDS: POLYETHYLENE GLYCOL POWDER 17 GM PACK PO SCH (09:47)
[2016-10-21] MEDS: INSULIN LISPRO 100 UNIT/ML SUBCUT SCH ×4 (09:51→20:17)
[2016-10-21] MEDS: GLIMEPIRIDE 4 MG TABLET PO SCH ×2 (09:52→17:50)
[2016-10-21] MEDS: PANTOPRAZOLE 40 MG TABLET PO SCH (09:52)
[2016-10-21] MEDS: CALCIUM (CARBONATE)/VITAMIN D 500 MG-200 UNIT TABLET PO SCH (09:52)
[2016-10-21] MEDS: DIGOXIN 0.125 MG TABLET PO SCH (09:52)
[2016-10-21] MEDS: INSULIN GLARGINE 100 UNIT/ML SUBCUT SCH (09:52)
[2016-10-21] MEDS: FLUTICASONE 50 MCG NASAL SPRAY 16 GM BOTTLE BOTH NARES SCH (09:52)
[2016-10-21] MEDS: OLMESARTAN 20 MG TABLET PO SCH (09:53)
[2016-10-21] MEDS: ALPRAZolam 0.25 MG TABLET PO PRN ×2 (09:53→20:17)
[2016-10-21] MEDS: amLODIPine 5 MG TABLET PO SCH (09:53)
[2016-10-21] MEDS: FENOFIBRATE 145 MG TABLET PO SCH (09:53)
[2016-10-21] MEDS: CARVEDILOL 12.5 MG TABLET PO SCH ×2 (09:53→20:17)
[2016-10-21] MEDS: ATORVASTATIN 40 MG TABLET PO SCH (09:53)
[2016-10-21] MEDS: DOCUSATE SODIUM 100 MG CAPSULE PO SCH ×2 (09:53→20:17)
[2016-10-21] MEDS: ASPIRIN EC 81 MG TABLET PO SCH (09:53)
[2016-10-21] MEDS: FUROSEMIDE 20 MG TABLET PO SCH (09:53)
[2016-10-21] MEDS: cefTRIAXone 1,000 MG in SODIUM CHLORIDE 0.9% 100 ML IV SCH (10:00)
[2016-10-21] MEDS: ENOXAPARIN 40 MG/0.4 ML SYRINGE SUBCUT SCH (10:09)
[2016-10-21] MEDS: LEVOFLOXACIN INJ 500 MG in PREMIX 1 EACH IV SCH (11:03)
--- NOTE | 2016-10-21 16:11 | Cardiology Progress Note ---
Sushila Redmond April, RN, am scribing for, and in the presence of, Beau Otto MD 16:11. Assessment and Plan (1) Chest pain Status: Acute Assessment and plan: Initial assessment and plan October 20, 2016: 1. 76-year-old WM with hypertension, diabetes, dyslipidemia, known severe CAD status post 2 separate CABG operations most recently in 2004 with multiple stents since that time including multiple stents and vein grafts, now presents with UTI associated with temperature 103 with chest pain lasting for 3 hours and rise and fall troponin suggesting non-STEMI (rising from 0-1.2 on the third set), with chronic nonspecific interventricular conduction delay. 2. Mr. Allred his chest pain is resolved but he still has dyspnea 3. He apparently has some sort of myelodysplastic syndrome followed by Dr. Haile , and received a Procrit shot about a week ago. He reports his hematocrit was about 29% that time and is now dropped from 27-25-1/2%; consult Dr. Haile. 4. Long history of moderate to severe ischemic cardiomyopathy with EF 20-25% which appears to be down from moderately reduced in 2015. 5. Has been on baby aspirin and Effient until his Effient was held on admission. 6. Heme test stool 7. Consider heart cath at a later time depending what his hematocrit does and how he does clinically with treatment of his infection/recurrence of angina. Assessment and plan October 21, 2016: 1. Mr. Allred is feeling a bit better after blood transfusion; his hematocrit dropped under 24% this morning (microcytic with apparent history of myelodysplastic syndrome) 2. Status post UTI with fever 103+ afebrile for over 24 hours with negative blood cultures (E. coli in the urine) 3. Status post non-STEMI/interventricular conduction delay 4. Consider heart catheterization at a later time when considered safe from a anemia standpoint; hematology is consulted for recommendations. Current Visit: Yes Qualifiers: Chest pain type: chest pain on breathing Qualified Code(s): R07.1 - Chest pain on breathing (2) CAD (coronary artery disease) Status: Chronic Current Visit: Yes (3) Diabetes mellitus Status: Chronic Current Visit: Yes Qualifiers: Diabetes mellitus type: type 2 Diabetes mellitus complication status: without complication (4) Hypertension Status: Chronic Current Visit: Yes Qualifiers: Hypertension type: essential hypertension Qualified Code(s): I10 - Essential (primary) hypertension (5) Chronic back pain Status: Chronic Current Visit: Yes (6) Anemia Status: Chronic Current Visit: Yes Qualifiers: Other causes of anemia: chronic disease, kidney (7) Hx of CABG Status: Chronic Current Visit: No Cardiology - PN: Subj Interval history: Bridge Crew Member: Dr. Vásquez PCP: Dr. Greenwood Summary: Mr. Allred is a 76 year old male who is routinely followed by Dr. Vásquez with a history of CAD, diabetes, hypertension, dyslipidemia, paroxysmal atrial fibrillation, anemia, and arthritis. Dr. Haile treats his anemia and he received his first shot of Procrit this past . He has had CABG 2, the first in 1985 (saphenous vein graft to the LAD and saphenous vein graft to the right coronary) and the most recent in 2004 (FUENTES to obtuse marginal, saphenous vein to LAD, and saphenous vein the right coronary). He has had several heart caths since that time. In June 2010, he received a stent in the first obtuse marginal branch past the left internal mammary artery insertion site. In February 2012 received a stent to the lesion in the mid graft to the LAD. His most recent cath was April 15, 2013 with the following findings: 1. Left ventricle was dilated with ejection fraction 25%. 2. Left ventricular end-diastolic pressure is 25 mmHg. 3. Aortic valve is probably tricuspid structure without significant gradient. 4. There is no significant mitral regurgitation demonstrated. 5. Left main coronary artery with 50% ostial stenosis and 20% stenosis in the more distal left main coronary artery. 6. Left ventricular artery is totally occluded proximally and at its ostium. The mid and distal vessel are widely patent seen by way of saphenous vein graft. 7. Saphenous artery is patent with 20% proximal first obtuse marginal disease. The stent in the first obtuse marginal beyond the mammary graft is widely patent. 8. Right coronary artery is totally occluded proximally with distal vessel seen by with saphenous vein is totally occluded and this is an known old finding. Collaterals of the left and right system are visualized. 9. Saphenous graft of the left anterior descending is widely patent as is the stent in its midportion. 10. Left ventricular artery graft to the obtuse marginal branch is widely patent. There is no associated graft in the right coronary and in the past have been occluded in multiple studies. Echocardiogram done September 18, 2014 with ejection fraction of 30-35%. Other surgical history includes sinus surgery, hernia repair, and multiple neck and back surgeries. Family history is positive for both parents and siblings with heart disease and sister with diabetes. He no longer smokes, reportedly quit in 1984. He was in his usual state of health until he woke up around 130 or 2 AM Thursday morning to go the bathroom and began to complain of burning with urination, chills, nausea vomiting, chest pain, shortness of breath. He reports he is chronically short of breath but this was worse than usual. The chest pain and the shortness of breath came on at rest but both seem to get worse with exertion. He describes the chest pain has a dull pain all the way across the top of his chest. He says that it was a constant pain and he rates it a 4 on a scale of 1-10. He says the pain did radiate into his shoulders. He can identify no triggers or alleviators while at home. He says his heart rate was elevated when he presented emergency department and that the pain was relieved after his heart rate was lower. Of note he and his both say that he does have some chest pain any time he is under stress. H&H on admission was 9.6 and 27.8, this morning is down to 8.6 and 25.5. BUN and creatinine is elevated at 24 and 1.6. Troponin on admission was 0.036, on recheck it increased to 0.913 and 1.600. Urinalysis showed leukocytosis. He has been started on Levaquin and Rocephin. EKG on admission showed sinus rhythm with bundle branch block, heart rate of 95. Chest x-ray with no acute cardiopulmonary pathology identified. His triglycerides are elevated at 721. He takes Lipitor 40 mg daily at home, TriCor 145 p.o. daily has been added to his regimen. October 21, 2016: Mr. Allred is resting comfortably in a reclining chair. He denies any further chest pain. He is still slightly more short of breath than is normal for him. He was afebrile during the night. Blood pressures been stable, home health clinician currently shows sinus rhythm with heart rates in the 70s. Urine culture was positive for gram-negative rods. He is on Levaquin and Rocephin. Blood culture still pending. H&H has continued to drop, today it is 8.1 and 23.7 with platelets at 107. Dr. Polo is ordered 2 units of blood. His creatinine has continueD to improve, today it is 1.4. Blood glucose continues to be elevated, today at 245. Exam (Progress Note) - Constitutional Vitals: Period Temp Pulse Resp BP Sys/Humphries Pulse Ox Last 24 Hr 97.4 F-99.6 F 68-82 17-20 100-116/50-61 95-98 General appearance: no acute distress, over weight - Head Head exam: Absent: abrasion, hematoma - Eye Eye exam: Absent: periorbital swelling, laceration to eyelids - Respiratory Respiratory exam: Present: clear to auscultation bilaterally, other (Oxygen via nasal cannula). Absent: accessory muscle use, chest wall tenderness - Cardiovascular Cardiovascular exam: Present: regular rate and rhythm - GI/Abdominal GI/Abdominal exam: Present: normal bowel sounds, soft. Absent: distended, tenderness - Extremities Exam Extremities exam: Present: edema (Trace to bilateral lower extremity) - Neurological Exam Neurological exam: Present: alert, oriented X3 - Psychiatric Psychiatric exam: Present: normal affect, normal mood - Skin Skin exam: Present: warm, dry Result/EKG - Labs CBC & BMP: 10/21/16 05:00 10/21/16 05:00 Lab Results: I have reviewed the past 24 hour labs Labs: Laboratory Results - last 24 hr 10/20/16 10/20/16 10/20/16 11:57 16:05 20:29 WBC RBC Hgb Hct MCV MCH MCHC RDW Plt Count MPV Neut % (Auto) Lymph % (Auto) [place] % (Auto) Eos % (Auto) Baso % (Auto) Neut # (Auto) Lymph # (Auto) [place] # (Auto) Eos # (Auto) Baso # (Auto) Total Counted Immature Gran % Nucleated RBC % Immature Gran # Segmented Neutrophils Band Neutrophils Lymphocytes Monocytes Eosinophils Nucleated RBCs Nucleated RBCs # Platelet Estimate Hypochromasia Macrocytosis Ovalocytes Morphology Comment Sodium Potassium Chloride Carbon Dioxide Anion Gap BUN Creatinine GFR Calculation BUN/Creatinine Ratio Glucose POC Glucose 380 H 298 H 303 H Calculated Osmolality Calcium Blood Type Antibody Screen Crossmatch 10/21/16 10/21/16 10/21/16 04:58 05:00 05:00 WBC 4.4 RBC 2.14 L Hgb 8.1 L Hct 23.7 L MCV 110.7 H MCH 38 H MCHC 34.2 RDW 16.3 Plt Count 107 L D MPV 11.1 Neut % (Auto) 69.6 Lymph % (Auto) 19.6 L [place] % (Auto) 6.8 Eos % (Auto) 1.8 Baso % (Auto) 0.2 Neut # (Auto) 3.1 Lymph # (Auto) 0.9 L [place] # (Auto) 0.3 Eos # (Auto) 0.1 Baso # (Auto) 0.0 Total Counted 100 Immature Gran % 2.0 Nucleated RBC % 1.6 Immature Gran # 0.09 Segmented Neutrophils 68 Band Neutrophils 7 Lymphocytes 20 Monocytes 4 Eosinophils 1 Nucleated RBCs 1 Nucleated RBCs # 0.07 Platelet Estimate Decreased Hypochromasia 1+ Macrocytosis Slight Ovalocytes Slight Morphology Comment Sodium 137 Potassium 4.3 Chloride 105 Carbon Dioxide 25 Anion Gap 11.3 BUN 23 H Creatinine 1.40 H GFR Calculation 58 BUN/Creatinine Ratio 16.00 Glucose 210 H POC Glucose Calculated Osmolality 282.8 Calcium 7.2 L Blood Type A POSITIVE Antibody Screen Negative Crossmatch See Detail 10/21/16 07:57 WBC RBC Hgb Hct MCV MCH MCHC RDW Plt Count MPV Neut % (Auto) Lymph % (Auto) [place] % (Auto) Eos % (Auto) Baso % (Auto) Neut # (Auto) Lymph # (Auto) [place] # (Auto) Eos # (Auto) Baso # (Auto) Total Counted Immature Gran % Nucleated RBC % Immature Gran # Segmented Neutrophils Band Neutrophils Lymphocytes Monocytes Eosinophils Nucleated RBCs Nucleated RBCs # Platelet Estimate Hypochromasia Macrocytosis Ovalocytes Morphology Comment Sodium Potassium Chloride Carbon Dioxide Anion Gap BUN Creatinine GFR Calculation BUN/Creatinine Ratio Glucose POC Glucose 245 H Calculated Osmolality Calcium Blood Type Antibody Screen Crossmatch - EKG EKG results: interpreted by me EKG shows: sinus rhythm Clarita Redmond Randall Scott, MD, personally performed the services described in this documentation, ascribed by Sherron Conti RN in my presence, and it is both accurate and complete [id number] .
--- NOTE | 2016-10-21 17:53 | Oncology Progress Note ---
Oncology Subjective PN Interval history: Patient with low-grade myelodysplasia manifested predominantly as anemia. He was sent to me by Dr. Sravan Coelho approximately 18 months ago. He had required intermittent transfusion prior to that time. He is not known to have a bleeding diathesis. He was admitted with acute onset of dysuria followed by chills and fever. Just prior to hospital arrival he also developed chest pain and nausea and has apparently suffered a non-ST elevation NC, his fourth. The patient had a hematocrit of 29 at my office on October 14. He did receive Procrit 40,000 units later that week as his initial dose. This was an effort to increase his hemoglobin. He is receiving red blood cell transfusion at this time. He is also receiving antibiotics. His E. coli appears to be pansensitive. Anemia management while hospitalized will be red blood cell transfusion as needed. We could consider for hypomethylating chemotherapy subcutaneous administration as an outpatient though at this time his cardiac status appears to be his limiting factor. I will will follow while hospitalized. Exam - Constitutional Vitals: Period Temp Pulse Resp BP Sys/Humphries Pulse Ox Last 24 Hr 97.4 F-99.6 F 65-82 16-20 104-132/53-76 95-100 Results - Labs CBC & BMP: 10/21/16 05:00 10/21/16 05:00
[2016-10-21 20:28] LABS: Hematocrit 28.5 VOL% (42.0-52.0); Hemoglobin 9.7 GM/DL (14.0-18.0)
[2016-10-21] MEDS: ONDANSETRON 4 MG/2 ML VIAL IV PRN (23:51)
[2016-10-22 04:57] LABS: Basophils % 0.4 % (0.0-0.8); Eosinophils # 0.1 10*3/uL (0.0-0.87); Eosinophils % 1.1 % (0.00-10.9); Hematocrit 30.1 VOL% (42.0-52.0); Immature Granulocytes % 1.1 %; Immature Granulocytes Absolute 0.05 #; Lymphocytes % 20.3 % (21.2-54.2); Mean Corpuscular HGB Conc 33.2 GM/DL (32-36); Mean Corpuscular Hemoglobin 35 PG (27-34); Mean Corpuscular Volume 104.9 FL (87-102); Mean Platelet Volume 11.5 FL (9.6-12.0); Monocytes # 0.3 10*3/uL (0.11-0.8); Monocytes % 5.3 % (1.7-12.7); NRBC # 0.08 10*3/uL; Neutrophils # 3.4 10*3/uL (1.4-7.4); Neutrophils % 71.8 % (38.7-73.9); Platelet Count 113 T/CUMM (130-400); Red Blood Count 2.87 MC/CUMM (3.8-5.5); White Blood Count 4.7 T/CUMM (4-12)
[2016-10-22 05:29] LABS: Osmolality,Calculated 283.5 MOS/KG (273-304); Potassium 4.5 MMOL/L (3.5-5.1)
[2016-10-22 05:32] LABS: Band Neutrophils 4 % (0-10); Eosinophils 1 % (0-10); Hypochromasia 1+; Lymphocytes 23 % (20-55); Nucleated Red Blood Cells 3 (0-5); Platelet Estimate Normal; Segmented Neutrophils 65 % (50-85); Total Cells Counted 100
[2016-10-22 05:33] LABS: Giant Platelets Few; Macrocytosis Slight; Polychromasia Slight
[2016-10-22] MEDS: oxyCODONE/ACETAMINOPHEN 5-325 MG TABLET PO PRN ×3 (05:33→21:42)
[2016-10-22] MEDS: ALPRAZolam 0.25 MG TABLET PO PRN (05:34)
[2016-10-22] MEDS: INSULIN GLARGINE 100 UNIT/ML SUBCUT SCH (08:57)
[2016-10-22] MEDS: INSULIN LISPRO 100 UNIT/ML SUBCUT SCH ×4 (08:58→21:26)
--- NOTE | 2016-10-22 08:58 | Internal Med Progress Note ---
Assessment and Plan (1) UTI (urinary tract infection) Status: Acute Assessment and plan: 76-year-old male admitted to acute care * Urinary tract infection and possible sepsis. E. coli sensitive to Rocephin and Levaquin. * Cough. Could be related to fluid overload. His weight is up 10 pounds from yesterday. Will check a chest x-ray. * Non-STEMI. Cardiology is following. Echocardiogram noted * Diabetes. Blood sugars are high. Will keep him on insulin and sliding * Chronic back pain. Continue treatment * Cardiomyopathy. Ischemic. * Diarrhea. Will check stool for C. difficile * Anemia. Hematocrit is better after transfusion * Discussed with patient and his . Current Visit: Yes (2) Chest pain Status: Acute Current Visit: Yes (3) Myeloproliferative disease Status: Acute Current Visit: Yes (4) Diabetes mellitus Status: Acute Current Visit: No (5) Diastolic heart failure Status: Acute Current Visit: No (6) Gastroesophageal reflux disease Status: Acute Current Visit: No (7) Lung abnormality Problem details: suspicion of lung mass RUQ Status: Acute Current Visit: No (8) CAD (coronary artery disease) Status: Chronic Current Visit: Yes (9) Hx of CABG Status: Chronic Current Visit: No (10) Hypertension Status: Chronic Current Visit: Yes Qualifiers: Hypertension type: essential hypertension Qualified Code(s): I10 - Essential (primary) hypertension Internal Medicine - PN: Subj Interval history: Patient is not feeling well this morning. His main complaint is diarrhea and cough. He is also hurting in upper abdomen. He relates it to coughing. He denies any chest pain. He does have shortness of breath. He has had 2-3 bowel movements during the night. Exam (Progress Note) - Constitutional Vitals: Period Temp Pulse Resp BP Sys/Humphries Pulse Ox Last 24 Hr 97.3 F-99.7 F 64-79 16-22 100-146/53-76 95-100 Exam: Examination: GENERAL: NAD. He appears anxious HEENT: PERRLA. EOMI. NECK: Neck is supple. Bilateral carotid bruit CVS: Regular rate and rhythm. S1 and S2 are normal. Systolic murmur at left lower sternal border RESPIRATORY: Lungs are clear. ABDOMEN: Soft but mildly tender and epigastric area EXT: No edema. Peripheral pulses are present. 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 Results - Labs CBC & BMP: 10/22/16 04:27 10/22/16 04:27 Lab Results: I have reviewed the past 24 hour labs
[2016-10-22] MEDS: ENOXAPARIN 40 MG/0.4 ML SYRINGE SUBCUT SCH (08:59)
[2016-10-22] MEDS: OLMESARTAN 20 MG TABLET PO SCH (09:03)
[2016-10-22] MEDS: DOCUSATE SODIUM 100 MG CAPSULE PO SCH ×2 (09:03→22:27)
[2016-10-22] MEDS: ASPIRIN EC 81 MG TABLET PO SCH (09:04)
[2016-10-22] MEDS: GLIMEPIRIDE 4 MG TABLET PO SCH ×2 (09:04→18:00)
[2016-10-22] MEDS: FENOFIBRATE 145 MG TABLET PO SCH (09:05)
[2016-10-22] MEDS: PANTOPRAZOLE 40 MG TABLET PO SCH (09:05)
[2016-10-22] MEDS: amLODIPine 5 MG TABLET PO SCH (09:05)
[2016-10-22] MEDS: CALCIUM (CARBONATE)/VITAMIN D 500 MG-200 UNIT TABLET PO SCH (09:05)
[2016-10-22] MEDS: CARVEDILOL 12.5 MG TABLET PO SCH ×2 (09:07→21:26)
[2016-10-22] MEDS: cefTRIAXone 1,000 MG in SODIUM CHLORIDE 0.9% 100 ML IV SCH (09:13)
[2016-10-22] MEDS: FLUTICASONE 50 MCG NASAL SPRAY 16 GM BOTTLE BOTH NARES SCH (09:14)
[2016-10-22] MEDS: POLYETHYLENE GLYCOL POWDER 17 GM PACK PO SCH (09:15)
[2016-10-22] MEDS: DIGOXIN 0.125 MG TABLET PO SCH (09:55)
[2016-10-22] MEDS: PRASUGREL 10 MG TABLET PO SCH (09:55)
[2016-10-22] MEDS: ATORVASTATIN 40 MG TABLET PO SCH (09:55)
[2016-10-22] MEDS: BENZONATATE 100 MG CAPSULE PO SCH ×2 (09:56→21:26)
[2016-10-22] MEDS: NYSTATIN 500,000 UNIT/5 ML UDCUP SWISH/SWAL SCH ×4 (09:56→21:26)
[2016-10-22] MEDS: FUROSEMIDE 20 MG TABLET PO SCH (10:08)
[2016-10-22] MEDS: LEVOFLOXACIN INJ 500 MG in PREMIX 1 EACH IV SCH (10:45)
--- NOTE | 2016-10-22 11:51 | XRay Report ---
History: Cough Date: 10/22/2016 Study: Chest x-ray PA and lateral Comparison exam: October 20, 2016 There is stable cardiomegaly. The mediastinal contour is unchanged in this patient status post prior median sternotomy. The pulmonary vasculature is not engorged. The lungs and pleural spaces remain generally clear. Osseous structures are similar. Impression: No acute cardiopulmonary process. Stable cardiomegaly PROCEDURE INTERPRETED AT [facility] DEPARTMENT OF RADIOLOGY Final Report Signed by: Dr. Genny Stewart
[2016-10-22] MEDS ORDERED: DIAZEPAM 5 MG TABLET PO ONE (14:13)
[2016-10-22] MEDS ORDERED: MAGNESIUM SULF RIDER 2 GM in PREMIX 1 EACH IV PRN (14:13)
[2016-10-22] MEDS ORDERED: POTASSIUM CHLORIDE RIDER 10 MEQ in PREMIX 1 EACH IV PRN (14:13)
[2016-10-22] MEDS ORDERED: diphenhydrAMINE CAP 25 MG CAPSULE PO ONE (14:13)
--- NOTE | 2016-10-22 14:17 | Cardiology Progress Note ---
I, Sherron Conti RN, am scribing for, and in the presence of, Panfilo Luna MD 14:17. Assessment and Plan (1) Unstable angina Status: Acute Assessment and plan: The patient has a known history of multivessel coronary artery disease with previous bypass and intervention. He has a mild bump in cardiac troponin. Clinically he is stabilized from his other medical issues. I discussed his case with Dr. Otto today and I think he is stable to proceed to cardiac catheterization for definitive coronary artery assessment. The risks and alternatives were discussed with the patient today who understands and wishes to proceed. Current Visit: No (2) CAD (coronary artery disease) Status: Chronic Current Visit: Yes (3) Diabetes mellitus Status: Chronic Current Visit: Yes Qualifiers: Diabetes mellitus type: type 2 Diabetes mellitus complication status: without complication (4) Hypertension Status: Chronic Current Visit: Yes Qualifiers: Hypertension type: essential hypertension Qualified Code(s): I10 - Essential (primary) hypertension (5) Chronic back pain Status: Chronic Current Visit: Yes (6) Anemia Status: Chronic Current Visit: Yes Qualifiers: Other causes of anemia: chronic disease, kidney (7) Hx of CABG Status: Chronic Current Visit: No Cardiology - PN: Subj Interval history: Rat Poisoner: Dr. Vásquez PCP: Dr. Greenwood Summary: Mr. Allred is a 76 year old male who is routinely followed by Dr. Vásquez with a history of CAD, diabetes, hypertension, dyslipidemia, paroxysmal atrial fibrillation, anemia, and arthritis. Dr. Haile treats his anemia and he received his first shot of Procrit this past . He has had CABG 2, the first in 1985 (saphenous vein graft to the LAD and saphenous vein graft to the right coronary) and the most recent in 2004 (FUENTES to obtuse marginal, saphenous vein to LAD, and saphenous vein the right coronary). He has had several heart caths since that time. In June 2010, he received a stent in the first obtuse marginal branch past the left internal mammary artery insertion site. In February 2012 received a stent to the lesion in the mid graft to the LAD. His most recent cath was April 15, 2013 with the following findings: 1. Left ventricle was dilated with ejection fraction 25%. 2. Left ventricular end-diastolic pressure is 25 mmHg. 3. Aortic valve is probably tricuspid structure without significant gradient. 4. There is no significant mitral regurgitation demonstrated. 5. Left main coronary artery with 50% ostial stenosis and 20% stenosis in the more distal left main coronary artery. 6. Left ventricular artery is totally occluded proximally and at its ostium. The mid and distal vessel are widely patent seen by way of saphenous vein graft. 7. Saphenous artery is patent with 20% proximal first obtuse marginal disease. The stent in the first obtuse marginal beyond the mammary graft is widely patent. 8. Right coronary artery is totally occluded proximally with distal vessel seen by with saphenous vein is totally occluded and this is an known old finding. Collaterals of the left and right system are visualized. 9. Saphenous graft of the left anterior descending is widely patent as is the stent in its midportion. 10. Left ventricular artery graft to the obtuse marginal branch is widely patent. There is no associated graft in the right coronary and in the past have been occluded in multiple studies. Echocardiogram done September 18, 2014 with ejection fraction of 30-35%. Other surgical history includes sinus surgery, hernia repair, and multiple neck and back surgeries. Family history is positive for both parents and siblings with heart disease and sister with diabetes. He no longer smokes, reportedly quit in 1984. He was in his usual state of health until he woke up around 130 or 2 AM Thursday morning to go the bathroom and began to complain of burning with urination, chills, nausea vomiting, chest pain, shortness of breath. He reports he is chronically short of breath but this was worse than usual. The chest pain and the shortness of breath came on at rest but both seem to get worse with exertion. He describes the chest pain has a dull pain all the way across the top of his chest. He says that it was a constant pain and he rates it a 4 on a scale of 1-10. He says the pain did radiate into his shoulders. He can identify no triggers or alleviators while at home. He says his heart rate was elevated when he presented emergency department and that the pain was relieved after his heart rate was lower. Of note he and his both say that he does have some chest pain any time he is under stress. H&H on admission was 9.6 and 27.8, this morning is down to 8.6 and 25.5. BUN and creatinine is elevated at 24 and 1.6. Troponin on admission was 0.036, on recheck it increased to 0.913 and 1.600. Urinalysis showed leukocytosis. He has been started on Levaquin and Rocephin. EKG on admission showed sinus rhythm with bundle branch block, heart rate of 95. Chest x-ray with no acute cardiopulmonary pathology identified. His triglycerides are elevated at 721. He takes Lipitor 40 mg daily at home, TriCor 145 p.o. daily has been added to his regimen. October 21, 2016: Mr. Allred is resting comfortably in a reclining chair. He denies any further chest pain. He is still slightly more short of breath than is normal for him. He was afebrile during the night. Blood pressures been stable, security monitor currently shows sinus rhythm with heart rates in the 70s. Urine culture was positive for gram-negative rods. He is on Levaquin and Rocephin. Blood culture still pending. H&H has continued to drop, today it is 8.1 and 23.7 with platelets at 107. Dr. Greenwood has ordered 2 units of blood. His creatinine has continued to improve, today it is 1.4. Blood glucose continues to be elevated, today at 245. October 22, 2016: Mr. Allred is resting comfortably today. He states he had a restless night, but does feel better now. He denies any chest pain and states he is slightly more short of breath than normal for him. He reports he has coughed a good deal and his abdomen is sore from that. Vital signs been stable , security monitor currently shows sinus rhythm with heart rates in the 60s. His H&H is improved to 10 and 30.1 after receiving 2 units of blood product yesterday. His stool was negative for occult blood and for C. difficile. Blood culture shows no growth at 3 days. His creatinine continues to improve, today it is 1.3. Exam (Progress Note) - Constitutional Vitals: Period Temp Pulse Resp BP Sys/Humphries Pulse Ox Last 24 Hr 97.3 F-99.7 F 64-79 16-22 100-146/53-76 95-100 General appearance: no acute distress, over weight - Head Head exam: Absent: abrasion, hematoma - Eye Eye exam: Absent: periorbital swelling, laceration to eyelids - Respiratory Respiratory exam: Present: clear to auscultation bilaterally, other (Oxygen via nasal cannula). Absent: accessory muscle use, chest wall tenderness - Cardiovascular Cardiovascular exam: Present: regular rate and rhythm - GI/Abdominal GI/Abdominal exam: Present: normal bowel sounds, soft. Absent: distended, tenderness - Extremities Exam Extremities exam: Present: edema (Trace to bilateral lower extremities) - Neurological Exam Neurological exam: Present: alert, oriented X3 - Psychiatric Psychiatric exam: Present: normal affect, normal mood - Skin Skin exam: Present: warm, dry Result/EKG - Labs CBC & BMP: 10/22/16 04:27 10/22/16 04:27 Lab Results: I have reviewed the past 24 hour labs Labs: Laboratory Results - last 24 hr 10/21/16 10/21/16 10/21/16 04:58 12:00 15:31 WBC RBC Hgb Hct MCV MCH MCHC RDW Plt Count MPV Neut % (Auto) Lymph % (Auto) [place] % (Auto) Eos % (Auto) Baso % (Auto) Neut # (Auto) Lymph # (Auto) [place] # (Auto) Eos # (Auto) Baso # (Auto) Total Counted Immature Gran % Nucleated RBC % Immature Gran # Segmented Neutrophils Band Neutrophils Lymphocytes Monocytes Eosinophils Nucleated RBCs Nucleated RBCs # Platelet Estimate Giant Platelets Polychromasia Hypochromasia Macrocytosis Sodium Potassium Chloride Carbon Dioxide Anion Gap BUN Creatinine GFR Calculation BUN/Creatinine Ratio Glucose POC Glucose 301 H 237 H Calculated Osmolality Calcium Blood Type A POSITIVE Antibody Screen Negative Crossmatch See Detail 10/21/16 10/21/16 10/22/16 19:39 20:19 04:27 WBC 4.7 RBC 2.87 L D Hgb 9.7 L 10.0 L Hct 28.5 L 30.1 L MCV 104.9 H MCH 35 H MCHC 33.2 RDW 19.0 H Plt Count 113 L MPV 11.5 Neut % (Auto) 71.8 Lymph % (Auto) 20.3 L [place] % (Auto) 5.3 Eos % (Auto) 1.1 Baso % (Auto) 0.4 Neut # (Auto) 3.4 Lymph # (Auto) 1.0 L [place] # (Auto) 0.3 Eos # (Auto) 0.1 Baso # (Auto) 0.0 Total Counted 100 Immature Gran % 1.1 Nucleated RBC % 1.7 Immature Gran # 0.05 Segmented Neutrophils 65 Band Neutrophils 4 Lymphocytes 23 Monocytes 7 Eosinophils 1 Nucleated RBCs 3 Nucleated RBCs # 0.08 Platelet Estimate Normal Giant Platelets Few Polychromasia Slight Hypochromasia 1+ Macrocytosis Slight Sodium Potassium Chloride Carbon Dioxide Anion Gap BUN Creatinine GFR Calculation BUN/Creatinine Ratio Glucose POC Glucose 297 H Calculated Osmolality Calcium Blood Type Antibody Screen Crossmatch 10/22/16 10/22/16 04:27 08:13 WBC RBC Hgb Hct MCV MCH MCHC RDW Plt Count MPV Neut % (Auto) Lymph % (Auto) [place] % (Auto) Eos % (Auto) Baso % (Auto) Neut # (Auto) Lymph # (Auto) [place] # (Auto) Eos # (Auto) Baso # (Auto) Total Counted Immature Gran % Nucleated RBC % Immature Gran # Segmented Neutrophils Band Neutrophils Lymphocytes Monocytes Eosinophils Nucleated RBCs Nucleated RBCs # Platelet Estimate Giant Platelets Polychromasia Hypochromasia Macrocytosis Sodium 139 Potassium 4.5 Chloride 106 Carbon Dioxide 27 Anion Gap 10.5 BUN 22 H Creatinine 1.30 GFR Calculation 63 BUN/Creatinine Ratio 16.00 Glucose 178 H POC Glucose 175 H Calculated Osmolality 283.5 Calcium 8.0 L Blood Type Antibody Screen Crossmatch - EKG EKG results: interpreted by me EKG shows: sinus rhythm I, Panfilo Luna MD, personally performed the services described in this documentation, ascribed by Sherron Conti RN in my presence, and it is both accurate and complete 417 .
[2016-10-22] MEDS ORDERED: HEPARIN/NACL 0.9% 2 UNITS/ML 1,000 ML IV ONE (14:26)
[2016-10-22] MEDS ORDERED: LIDOCAINE 1% 20 ML VIAL ONE (14:26)
[2016-10-22] MEDS ORDERED: diphenhydrAMINE CAP 50 MG CAPSULE ONE (14:27)
[2016-10-22] MEDS ORDERED: MIDAZOLAM 2 MG/2 ML VIAL ONE (14:56)
[2016-10-22] MEDS ORDERED: HYDROmorphone 2 MG/1 ML VIAL ONE (14:56)
--- NOTE | 2016-10-22 15:39 | Cardiac Catheterization ---
Date of Procedure:: 10/22/16 Procedure: CLINICAL SUMMARY: The patient has known severe multivessel coronary artery disease and presented with anginal symptoms and a slight bump in cardiac enzymes. He is undergoing cardiac catheterization at this time for definitive coronary artery assessment possible revascularization. PROCEDURES PERFORMED: 1. Right femoral percutaneous arteriotomy 2. Left heart catheterization. 3. Resting hemodynamics. 4. Left ventriculography. 5. Coronary arteriography. 6. Right femoral arteriogram. 7. Angio-Seal closure of the right femoral artery. 8. Coronary artery bypass graft angiography. DESCRIPTION OF PROCEDURE: After obtaining informed consent, the patient was brought to the cardiac catheterization lab where the right groin was prepped and draped in the usual sterile manner. Using IV sedation, local anesthesia, and Modified Seldinger technique, a needle was placed in the right femoral artery and a sheath was positioned without difficulty. A left coronary catheter was advanced over a guidewire under fluoroscopic control to the ascending aorta where angiograms of the left coronary artery were undertaken in multiple views. After adequate angiograms, this catheter was withdrawn and a right coronary catheter was advanced over a guidewire under fluoroscopic control to the ascending aorta with angiograms of the RCA, saphenous vein grafts , and left internal mammary arterial graft were undertaken in numerous projections. After adequate angiograms, this catheter was removed and a pigtail ventriculographic catheter was advanced over a guidewire under fluoroscopic control to the aortic valve and left ventricular pressures were measured. After adequate pressures were measured, this catheter was used to perform left ventriculography in the [place] projection. This catheter was then withdrawn under hemodynamic monitoring and removed from the patient. A right femoral arteriogram was performed showing adequate sheath placement for closure device deployment. The sheath was then removed and an Angio-Seal device was used to obtain hemostasis. The patient was transferred back to the room having suffered no immediate complications. HEMODYNAMICS: See the accompanying data sheet. CORONARY ARTERIOGRAPHY: LEFT MAIN: The left main coronary artery is a large caliber vessel, which bifurcates into the left anterior descending and left circumflex coronary arteries. The left main coronary artery has ostial disease of 50-60% as well as some diffuse disease in its mid segment. LEFT CIRCUMFLEX: The left circumflex coronary artery is a moderate-sized vessel which gives off a moderate to large first obtuse marginal a small second obtuse marginal and a moderate-sized posterior lateral branch. There are mild luminal irregularities in the circumflex system but no focal high-grade disease is seen. There is a patent left internal mammary artery graft to the first obtuse marginal branch. LEFT ANTERIOR DESCENDING: The left anterior descending artery is occluded at its origin from the left main coronary artery. The distal vessel seen filling via patent saphenous vein graft. RIGHT CORONARY ARTERY: The right coronary artery is occluded proximally. This is a chronic total occlusion. There is faint filling distally from contralateral collaterals. Saphenous vein graft to the right coronary artery: This graft is occluded proximally. This is a chronic total occlusion. Saphenous vein graft to left internal mammary artery: This graft is widely patent. Left internal mammary artery to obtuse marginal branch: This graft is widely patent. LEFT VENTRICULOGRAPHY: Left ventriculography shows a dilated cardiomyopathy with severe global hypokinesis and an ejection fraction of approximately 20%. PERIPHERAL ARTERIOGRAPHY: Right femoral arteriogram shows a normal right iliofemoral artery with adequate sheath placement for closure device deployment. IMPRESSIONS: 1. Severe [place] left main and three-vessel coronary artery disease as described above. However, there has been no significant change in the patient' s coronary anatomy since his previous catheterization several years ago. 2. The right coronary artery and its grafts are chronically occluded with faint contralateral collateral filling of the distal vessel. This is unchanged from previous catheterization. 3. The left internal mammary artery to obtuse marginal graft is widely patent. 4. The saphenous vein graft to the left anterior descending coronary artery is widely patent. 5. Severe dilated ischemic cardiomyopathy with elevated left ventricular end- diastolic pressure. PLAN: I do not see any significant change in the patient's coronary anatomy since his last catheterization, nor did I see the need for any specific revascularization at this time. However, the patient has a chronic severe ischemic cardiomyopathy and has a left bundle branch block with a wide QRS/ ventricular dyssynchrony. I think he would probably benefit from cardiac resynchronization therapy with a biventricular defibrillator. I will discuss that with the patient and family and consider doing this procedure later in this hospitalization if he would like to proceed. Anesthesia: minimal conscious sedation Surgeon / Physician: Panfilo Luna Condition: stable Disposition: floor - Medications / Follow-up
[2016-10-22] MEDS ORDERED: SODIUM CHLORIDE 0.9% 1,000 ML IV SCH (16:00)
[2016-10-23] MEDS: oxyCODONE/ACETAMINOPHEN 5-325 MG TABLET PO PRN ×3 (02:03→17:55)
[2016-10-23] MEDS: ALPRAZolam 0.25 MG TABLET PO PRN ×2 (02:03→22:14)
[2016-10-23 05:28] LABS: Basophils % 0.3 % (0.0-0.8); Eosinophils % 1.3 % (0.00-10.9); Hematocrit 29.3 VOL% (42.0-52.0); Hemoglobin 9.5 GM/DL (14.0-18.0); Immature Granulocytes % 1.3 %; Immature Granulocytes Absolute 0.04 #; Lymphocytes # 0.7 10*3/uL (1.4-4.0); Lymphocytes % 21.4 % (21.2-54.2); Mean Corpuscular HGB Conc 32.4 GM/DL (32-36); Mean Corpuscular Hemoglobin 35 PG (27-34); Mean Corpuscular Volume 106.9 FL (87-102); Mean Platelet Volume 11.6 FL (9.6-12.0); Monocytes # 0.4 10*3/uL (0.11-0.8); NRBC # 0.05 10*3/uL; Neutrophils # 2.1 10*3/uL (1.4-7.4); Neutrophils % 64.7 % (38.7-73.9); Platelet Count 116 T/CUMM (130-400); Red Blood Count 2.74 MC/CUMM (3.8-5.5); Red Cell Distribution Width 19.1 % (9.3-17.3); White Blood Count 3.2 T/CUMM (4-12)
[2016-10-23 06:00] LABS: Calcium 8.1 MG/DL (8.5-10.1); Osmolality,Calculated 287.3 MOS/KG (273-304); Potassium 4.7 MMOL/L (3.5-5.1)
[2016-10-23 06:01] LABS: Band Neutrophils 6 % (0-10); Eosinophils 3 % (0-10); Hypochromasia 1+; Lymphocytes 23 % (20-55); Platelet Estimate Normal; Segmented Neutrophils 60 % (50-85); Total Cells Counted 100
[2016-10-23 06:02] LABS: Macrocytosis Slight
--- NOTE | 2016-10-23 08:23 | Internal Med Progress Note ---
Assessment and Plan (1) UTI (urinary tract infection) Status: Acute Assessment and plan: 76-year-old male admitted to acute care * Urinary tract infection and possible sepsis. E. coli sensitive to Rocephin and Levaquin. His T-max yesterday was 99 7. * Cough. Better. * Non-STEMI. Results of the cath noted * Diabetes. Continue current treatment * Chronic back pain. Continue treatment * Cardiomyopathy. Ischemic. * Diarrhea. Resolved * Anemia. Stable * Patient for possible defibrillator placement. Patient with recent infection. Defer to cardiology about timing of defibrillator placement * Discussed with patient and his . Current Visit: Yes (2) Chest pain Status: Acute Current Visit: Yes (3) Myeloproliferative disease Status: Acute Current Visit: Yes (4) Diabetes mellitus Status: Acute Current Visit: No (5) Diastolic heart failure Status: Acute Current Visit: No (6) Gastroesophageal reflux disease Status: Acute Current Visit: No (7) Lung abnormality Problem details: suspicion of lung mass RUQ Status: Acute Current Visit: No (8) CAD (coronary artery disease) Status: Chronic Current Visit: Yes (9) Hx of CABG Status: Chronic Current Visit: No (10) Hypertension Status: Chronic Current Visit: Yes Qualifiers: Hypertension type: essential hypertension Qualified Code(s): I10 - Essential (primary) hypertension Internal Medicine - PN: Subj Interval history: Patient is feeling better today. He denies any chest pain or shortness of breath. His diarrhea has resolved. Results of cardiac cath were discussed with him and his family. Exam (Progress Note) - Constitutional Vitals: Period Temp Pulse Resp BP Sys/Humphries Pulse Ox Last 24 Hr 97.4 F-98.1 F 51-111 18-22 106-122/51-73 93-100 Exam: Examination: GENERAL: NAD. HEENT: PERRLA. EOMI. NECK: Neck is supple. Bilateral carotid bruit CVS: Regular rate and rhythm. S1 and S2 are normal. Systolic murmur at left lower sternal border RESPIRATORY: Lungs are clear. ABDOMEN: Soft but mildly tender and epigastric area EXT: No edema. Peripheral pulses are present. WET ROOM SUPERVISOR: Nonfocal SKIN: Warm and dry. Results - Labs CBC & BMP: 10/23/16 04:18 10/23/16 04:18 Lab Results: I have reviewed the past 24 hour labs
--- NOTE | 2016-10-23 08:53 | Cardiology Progress Note ---
Assessment and Plan (1) Ischemic dilated cardiomyopathy Status: Acute Assessment and plan: The patient has a severe ischemic cardiac myopathy which is been present for years and has not improved with maximal medical therapy. He also has ventricular dyssynchrony with a left bundle branch block and would benefit from cardiac resynchronization therapy. I am going to plan for a internal cardiac to for later implant later today. Of note, the patient did present with urinary tract infection, but this is been treated and his symptoms have resolved. He has no evidence of systemic infection at this time. We will continue his antibiotics as well. Current Visit: Yes (2) Unstable angina Status: Acute Assessment and plan: The patient's cardiac catheterization showed stable severe diffuse coronary artery disease. He did not have any good revascularization options. Continue to manage this medically. I actually think he had a bump in his cardiac enzymes secondary to a transient arrhythmia with a supply demand mismatch secondary to tachycardia. Current Visit: No (3) CAD (coronary artery disease) Status: Chronic Current Visit: Yes (4) Diabetes mellitus Status: Chronic Current Visit: Yes Qualifiers: Diabetes mellitus type: type 2 Diabetes mellitus complication status: without complication (5) Hypertension Status: Chronic Current Visit: Yes Qualifiers: Hypertension type: essential hypertension Qualified Code(s): I10 - Essential (primary) hypertension (6) Chronic back pain Status: Chronic Current Visit: Yes (7) Anemia Status: Chronic Current Visit: Yes Qualifiers: Other causes of anemia: chronic disease, kidney (8) Hx of CABG Status: Chronic Current Visit: No Cardiology - PN: Subj Interval history: The patient is doing well this morning. He still has fatigue and dyspnea. He does not have any fever, chills, or other signs of ongoing infection. He had no problem or complication from his cardiac catheterization yesterday. I had a very long discussion with the patient and his family this morning. He has a severe ischemic cardiomyopathy with ventricular dyssynchrony/left bundle branch block. I think he would benefit from cardiac resynchronization therapy with a biventricular internal cardiac defibrillator. We had a long discussion of the risks and possible benefits of this procedure today and the patient and his family understand and wish to proceed. I am going to go ahead and try to get this set up for later today. Current Medications Acetaminophen (Tylenol Tab) 650 mg PO Q6H PRN PRN Reason: Fever > 100.4 or Headache Last Admin: 10/20/16 19:58 Dose: 650 mg Alprazolam (Xanax) 0.25 mg PO Q6H PRN PRN Reason: Anxiety Last Admin: 10/23/16 02:03 Dose: 0.25 mg Amlodipine Besylate (Norvasc) 5 mg PO DAILY [facility] Last Admin: 10/22/16 09:05 Dose: 5 mg Aspirin () 81 mg PO DAILY [facility] Last Admin: 10/22/16 09:04 Dose: 81 mg Atorvastatin Calcium (Lipitor) 40 mg PO DAILY [facility] Last Admin: 10/22/16 09:55 Dose: 40 mg Benzonatate (Tessalon) 200 mg PO BID [facility] Last Admin: 10/22/16 21:26 Dose: 200 mg Calcium/Vitamin D (Oscal 500 + D) 1 tablet PO DAILY [facility] Last Admin: 10/22/16 09:05 Dose: 1 tablet Carvedilol (Coreg) 12.5 mg PO BID [facility] Last Admin: 10/22/16 21:26 Dose: 12.5 mg Dextrose/Water (D50) 25 gm IV PRN PRN PRN Reason: Hypoglycemia with IV access Digoxin (Lanoxin Tab) 0.125 mg PO DAILY [facility] Last Admin: 10/22/16 09:55 Dose: 0.125 mg Docusate Sodium (Colace Cap) 100 mg PO BID [facility] Last Admin: 10/22/16 22:27 Dose: Not Given Enoxaparin Sodium (Lovenox) 40 mg SUBCUT Q24H [facility] Last Admin: 10/22/16 08:59 Dose: 40 mg Fenofibrate (Tricor) 145 mg PO DAILY [facility] Last Admin: 10/22/16 09:05 Dose: 145 mg Fluticasone Propionate (Flonase) 1 spray BOTH NARES DAILY [facility] Last Admin: 10/22/16 09:14 Dose: 1 spray Furosemide (Lasix Tab) 40 mg PO DAILY [facility] Glimepiride (Amaryl) 4 mg PO BID W/MEALS [facility] Last Admin: 10/22/16 18:00 Dose: 4 mg Glucagon () 1 mg IM PRN PRN PRN Reason: Hypoglycemia w/o IV access Ceftriaxone Sodium 1,000 mg/ (Sodium Chloride) 100 mls @ 200 mls/hr IV Q24H [facility] Last Admin: 10/22/16 09:13 Dose: 200 mls/hr Levofloxacin/Dextrose 500 mg/ (Premix) 100 mls @ 100 mls/hr IV Q24H [facility] Last Admin: 10/22/16 10:45 Dose: 100 mls/hr Magnesium Sulfate 2 gm/ Premix 50 mls @ 25 mls/hr IV ONCE PRN PRN Reason: Magnesium less than 1.8 Stop: 10/24/16 14:14 Potassium Chloride 10 meq/ (Premix) 100 mls @ 100 mls/hr IV Q1H PRN PRN Reason: Potassium less than 3.5 Stop: 10/24/16 14:14 Insulin Glargine (Lantus) 40 unit SUBCUT AC BREAKFAST [facility] Last Admin: 10/22/16 08:57 Dose: 40 unit Insulin Human Lispro (Humalog) 0 unit SUBCUT ACHS [facility] PRN Reason: Protocol Last Admin: 10/22/16 21:26 Dose: 4 unit Nitroglycerin (Nitrostat) 0.4 mg SL Q5M PRN PRN Reason: CHEST PAIN; UP TO 3 DOSES Nystatin (Mycostatin Liquid) 400,000 unit SWISH/SWAL QID [facility] Last Admin: 10/22/16 21:26 Dose: 400,000 unit Olmesartan (Benicar) 20 mg PO DAILY [facility] Last Admin: 10/22/16 09:03 Dose: 20 mg Ondansetron HCl (Zofran Inj) 4 mg IV Q6H PRN PRN Reason: Nausea/Vomiting Last Admin: 10/21/16 23:51 Dose: 4 mg Oxycodone/Acetaminophen (Percocet 5-325) 1 tablet PO Q4H PRN PRN Reason: Pain Moderate (4-7) Last Admin: 10/23/16 02:03 Dose: 1 tablet Pantoprazole Sodium (Protonix Tab) 40 mg PO DAILY [facility] Last Admin: 10/22/16 09:05 Dose: 40 mg Polyethylene Glycol (Miralax) 17 gm PO DAILY [facility] Last Admin: 10/22/16 09:15 Dose: Not Given Prasugrel (Effient) 10 mg PO DAILY [facility] Last Admin: 10/22/16 09:55 Dose: 10 mg Exam (Progress Note) - Constitutional Vitals: Period Temp Pulse Resp BP Sys/Humphries Pulse Ox Last 24 Hr 97.4 F-98.1 F 51-111 18-22 106-122/51-73 93-100 Exam: General: Frail, elderly, chronically ill-appearing HEENT: Normocephalic, atraumatic Neck: Supple Neck, Midline Trachea Cardiac: Regular rhythm, 2/6 systolic murmur, no gallop, no rub Lungs: Clear to Ascultation, No Wheeze, Rales, Rhonchi Neuro: Cranial Nerve 2-12 Intact, diffuse generalized weakness Abdomen: Soft, Active Bowel Sounds, No Masses, No Pulsations/Bruits Skin: Normal color, no rash Extremities: No Clubbing, No Cyanosis, No Edema, Normal Upper Extr. Pulses Groin: No complication from cardiac catheterization Musculoskeletal: No acute abnormality noted Psychiatric: The patient is alert and oriented. The patient has a flat affect but does not appear to be anxious or depressed. Result/EKG - Labs CBC & BMP: 10/23/16 04:18 10/23/16 04:18 Lab Results: I have reviewed the past 24 hour labs Labs: Laboratory Results - last 24 hr 10/22/16 10/22/16 10/22/16 12:00 16:51 19:29 WBC RBC Hgb Hct MCV MCH MCHC RDW Plt Count MPV Neut % (Auto) Lymph % (Auto) Jones % (Auto) Eos % (Auto) Baso % (Auto) Neut # (Auto) Lymph # (Auto) Jones # (Auto) Eos # (Auto) Baso # (Auto) Total Counted Immature Gran % Nucleated RBC % Immature Gran # Segmented Neutrophils Band Neutrophils Lymphocytes Monocytes Eosinophils Nucleated RBCs # Platelet Estimate Hypochromasia Macrocytosis Morphology Comment Sodium Potassium Chloride Carbon Dioxide Anion Gap BUN Creatinine GFR Calculation BUN/Creatinine Ratio Glucose POC Glucose 225 H 216 H 211 H Calculated Osmolality Calcium 10/23/16 10/23/16 10/23/16 04:18 04:18 07:33 WBC 3.2 L D RBC 2.74 L Hgb 9.5 L Hct 29.3 L MCV 106.9 H MCH 35 H MCHC 32.4 RDW 19.1 H Plt Count 116 L MPV 11.6 Neut % (Auto) 64.7 Lymph % (Auto) 21.4 Jones % (Auto) 11.0 Eos % (Auto) 1.3 Baso % (Auto) 0.3 Neut # (Auto) 2.1 Lymph # (Auto) 0.7 L Jones # (Auto) 0.4 Eos # (Auto) 0.0 Baso # (Auto) 0.0 Total Counted 100 Immature Gran % 1.3 Nucleated RBC % 1.6 Immature Gran # 0.04 Segmented Neutrophils 60 Band Neutrophils 6 Lymphocytes 23 Monocytes 8 Eosinophils 3 Nucleated RBCs # 0.05 Platelet Estimate Normal Hypochromasia 1+ Macrocytosis Slight Morphology Comment Sodium 141 Potassium 4.7 Chloride 107 Carbon Dioxide 28 Anion Gap 10.7 BUN 19 H Creatinine 1.20 GFR Calculation 71 BUN/Creatinine Ratio 15.00 Glucose 180 H POC Glucose 179 H Calculated Osmolality 287.3 Calcium 8.1 L - EKG EKG results: interpreted by me
[2016-10-23] MEDS ORDERED: HEPARIN/NACL 0.9% 2 UNITS/ML 0 ML IV ONE (10:24)
[2016-10-23] MEDS ORDERED: LIDOCAINE 1% 20 ML VIAL ONE (10:24)
[2016-10-23] MEDS ORDERED: ceFAZolin 1,000 MG VIAL ONE (10:27)
[2016-10-23] MEDS ORDERED: LIDOCAINE 1%/EPI INJ 20 ML VIAL ONE (10:27)
[2016-10-23] MEDS: INSULIN LISPRO 100 UNIT/ML SUBCUT SCH ×4 (10:45→22:24)
[2016-10-23] MEDS: cefTRIAXone 1,000 MG in SODIUM CHLORIDE 0.9% 100 ML IV SCH (10:46)
[2016-10-23] MEDS: GLIMEPIRIDE 4 MG TABLET PO SCH ×2 (11:30→17:55)
[2016-10-23] MEDS ORDERED: TISSUE ADHESIVE 1 EACH APPLICATOR TOP ONE (11:44)
--- NOTE | 2016-10-23 11:50 | Cardiac Defibrillator ---
- Preoperative diagnosis Date of Procedure:: 10/23/16 Preop Diagnosis: ischemic dilated cardiomyopathy, NYHA class II and III heart failure, and measured LVEF less than or equal to 35% Procedure: Procedures performed 1. Percutaneous left subclavian venotomy with sheath placement 2. Placement of atrial and ventricular leads with threshold testing 3. Placement of left ventricular pacing lead 4. Placement of biventricular internal cardiac defibrillator for cardiac resynchronization therapy 5. Defibrillation threshold testing Of note, this is an MRI compatible system. The patient had a severe dilated ischemic cardiomyopathy with ventricular dyssynchrony which has gradually worsened despite optimal medical therapy and needed internal cardiac defibrillator implant with cardiac resynchronization. After informed consent was obtained was taken to catheter prepped and draped in usual sterile manner. We used minimal sedation for this portion of the case. We placed 2 J-tipped wires and a wholly wire in the left subclavian vein using a modified Seldinger technique in the usual fashion. I then performed a pocket approximately 2 cm below the left clavicular border using blunt and sharp dissection as well as electrocautery. We then pulled our leads into the pocket from below. Using safe sheaths, we placed a Medtronic [id number] ventricular lead into the right ventricular apex and secured it with a helical coil. Serial number on the ventricular lead is [id number]. Excellent capture and sensing thresholds were achieved. We then used a [employer] attain multipurpose coronary sinus guide to engage the coronary sinus and placed a Medtronic 4598 88 cm left ventricular lead in the middle cardiac vein. Excellent capture and sensing thresholds were achieved. Serial number on the left ventricular lead was [id number]. We then used a Medtronic 5076-52 centimeter lead in the atrium. Serial number on the atrial lead was [id number]. Excellent capture and sensing thresholds were achieved. After the sheaths had been removed, we sutured the leads to the pocket floor using Ethibond suture. We then rinsed the pocket with antibiotic solution and then connected the leads to a Medtronic Amplia MRI Quad CRTD [id number] defibrillator with serial number. S. After the device give been connected to the leads, it was placed in the pocket and sutured pocket floor with Ethibond suture. We then performed defibrillation threshold testing. We induced ventricular tachycardia with T shock. The device successfully identified and defibrillated the patient with a greater than or equal to 10 J safety margin. We then closed the pocket 2 layers using Vicryl suture. We then applied a topical adhesive followed by Steri-Strips and a dressing. There were no apparent complications during the procedure. The patient remained stable throughout the procedure and will now be transferred back to his room for recovery. Anesthesia: other (per anesthesia) Surgeon / Physician: Panfilo Luna Condition: stable Disposition: floor - Medications / Follow-up
[2016-10-23] MEDS ORDERED: MIDAZOLAM 2 MG/2 ML VIAL ONE (12:14)
[2016-10-23] MEDS ORDERED: PROPOFOL 200 MG/20 ML VIAL IV ONE (12:14)
[2016-10-23] MEDS ORDERED: KETAMINE 500 MG/10 ML VIAL ONE (12:15)
--- NOTE | 2016-10-23 12:17 | Anesthesia Post-Op ---
Anesthesia Post OP - Post Ansesthetic Evaluation Patient seen in post op: Yes Resp: within normal limits CV: within normal limits Mental: within normal limits Temp: within normal limits [id number]-Yqhgdseal: within normal limits Nausea and Vomiting: within normal limits Pain: within normal limits
--- NOTE | 2016-10-23 12:22 | XRay Report ---
Single view the chest. Indication: Lead placement. Comparison: October 22, 2016. Surgical screws and plates are seen within the cervical spine. The heart is enlarged. Calcific plaque is present within the aortic knob. Previous median sternotomy. Since the previous study a pacemaker has been placed. The hardware appears to be in good position. The pulmonary vasculature is prominent. The interstitial lung markings are prominent. No pneumothorax. No definite pleural effusion. Degenerative changes are present within the shoulders and spinal column. Impression: Status post pacemaker placement. Development of venous congestion and interstitial edema. PROCEDURE INTERPRETED AT [facility] DEPARTMENT OF RADIOLOGY Final Report Signed by: Dr. Donna Brice
[2016-10-23] MEDS: ASPIRIN EC 81 MG TABLET PO SCH (12:51)
[2016-10-23] MEDS: CARVEDILOL 12.5 MG TABLET PO SCH ×2 (12:51→21:27)
[2016-10-23] MEDS: amLODIPine 5 MG TABLET PO SCH (12:52)
[2016-10-23] MEDS: ATORVASTATIN 40 MG TABLET PO SCH (12:52)
[2016-10-23] MEDS: FENOFIBRATE 145 MG TABLET PO SCH (12:53)
[2016-10-23] MEDS: CALCIUM (CARBONATE)/VITAMIN D 500 MG-200 UNIT TABLET PO SCH (12:53)
[2016-10-23] MEDS: BENZONATATE 100 MG CAPSULE PO SCH ×2 (12:54→21:27)
[2016-10-23] MEDS: FUROSEMIDE 40 MG TABLET PO SCH (12:56)
[2016-10-23] MEDS: OLMESARTAN 20 MG TABLET PO SCH (12:56)
[2016-10-23] MEDS: NYSTATIN 500,000 UNIT/5 ML UDCUP SWISH/SWAL SCH ×4 (12:57→21:27)
[2016-10-23] MEDS: PANTOPRAZOLE 40 MG TABLET PO SCH (12:57)
[2016-10-23] MEDS: PRASUGREL 10 MG TABLET PO SCH (12:57)
[2016-10-23] MEDS: DOCUSATE SODIUM 100 MG CAPSULE PO SCH ×2 (12:58→21:27)
[2016-10-23] MEDS: FLUTICASONE 50 MCG NASAL SPRAY 16 GM BOTTLE BOTH NARES SCH (12:58)
[2016-10-23] MEDS: ENOXAPARIN 40 MG/0.4 ML SYRINGE SUBCUT SCH (12:59)
[2016-10-23] MEDS: POLYETHYLENE GLYCOL POWDER 17 GM PACK PO SCH (12:59)
[2016-10-23] MEDS: DIGOXIN 0.125 MG TABLET PO SCH (12:59)
[2016-10-23] MEDS: LEVOFLOXACIN INJ 500 MG in PREMIX 1 EACH IV SCH (12:59)
[2016-10-23] MEDS: INSULIN GLARGINE 100 UNIT/ML SUBCUT SCH (13:16)
--- NOTE | 2016-10-23 14:39 | EKG Report ---
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
[2016-10-23] MEDS ORDERED: oxyCODONE/ACETAMINOPHEN 5-325 MG TABLET PO ONE (20:02)
[2016-10-23] MEDS ORDERED: oxyCODONE/ACETAMINOPHEN 5-325 MG TABLET PO PRN ×2 (20:04→21:00)
[2016-10-24] MEDS: oxyCODONE/ACETAMINOPHEN 5-325 MG TABLET PO PRN ×6 (02:35→23:53)
[2016-10-24 05:24] LABS: Basophils % 0.3 % (0.0-0.8); Eosinophils # 0.1 10*3/uL (0.0-0.87); Eosinophils % 2.7 % (0.00-10.9); Hematocrit 28.2 VOL% (42.0-52.0); Hemoglobin 9.3 GM/DL (14.0-18.0); Immature Granulocytes % 1.7 %; Immature Granulocytes Absolute 0.05 #; Lymphocytes # 1.2 10*3/uL (1.4-4.0); Mean Corpuscular Hemoglobin 35 PG (27-34); Mean Corpuscular Volume 106.4 FL (87-102); Mean Platelet Volume 11.5 FL (9.6-12.0); Monocytes # 0.3 10*3/uL (0.11-0.8); Monocytes % 9.2 % (1.7-12.7); Neutrophils # 1.4 10*3/uL (1.4-7.4); Neutrophils % 47.1 % (38.7-73.9); Platelet Count 110 T/CUMM (130-400); Red Blood Count 2.65 MC/CUMM (3.8-5.5); Red Cell Distribution Width 18.6 % (9.3-17.3)
[2016-10-24 05:44] LABS: Hypochromasia 1+; Macrocytosis Slight; Platelet Estimate Adequate
[2016-10-24 05:58] LABS: Osmolality,Calculated 277.7 MOS/KG (273-304); Potassium 3.9 MMOL/L (3.5-5.1)
--- NOTE | 2016-10-24 07:40 | EKG Report ---
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
--- NOTE | 2016-10-24 08:32 | Internal Med Progress Note ---
Assessment and Plan (1) UTI (urinary tract infection) Status: Acute Assessment and plan: 76-year-old male admitted to acute care * Urinary tract infection and possible sepsis. Afebrile. Will change Levaquin to p.o. * Non-STEMI. Patient had defibrillator placed * Diabetes. Continue current treatment * Chronic back pain. Continue treatment * Cardiomyopathy. Ischemic. * Anemia. Stable * Discussed with patient and his . Hopefully home in the morning Current Visit: Yes (2) Chest pain Status: Acute Current Visit: Yes (3) Myeloproliferative disease Status: Acute Current Visit: Yes (4) Diabetes mellitus Status: Acute Current Visit: No (5) Diastolic heart failure Status: Acute Current Visit: No (6) Gastroesophageal reflux disease Status: Acute Current Visit: No (7) Lung abnormality Problem details: suspicion of lung mass RUQ Status: Acute Current Visit: No (8) CAD (coronary artery disease) Status: Chronic Current Visit: Yes (9) Hx of CABG Status: Chronic Current Visit: No (10) Hypertension Status: Chronic Current Visit: Yes Qualifiers: Hypertension type: essential hypertension Qualified Code(s): I10 - Essential (primary) hypertension Internal Medicine - PN: Subj Interval history: Patient is feeling better today. He had a defibrillator placed yesterday. He is still having some dysuria Exam (Progress Note) - Constitutional Vitals: Period Temp Pulse Resp BP Sys/Humphries Pulse Ox Last 24 Hr 97.8 F-99.4 F 53-77 18-20 103-150/54-107 94-100 Exam: Examination: GENERAL: NAD. HEENT: PERRLA. EOMI. NECK: Neck is supple. Bilateral carotid bruit CVS: Regular rate and rhythm. S1 and S2 are normal. Systolic murmur at left lower sternal border RESPIRATORY: Lungs are clear. ABDOMEN: Soft but mildly tender and epigastric area EXT: No edema. Peripheral pulses are present. CAR SEALER: Nonfocal SKIN: Warm and dry. Results - Labs CBC & BMP: 10/24/16 04:27 10/24/16 04:27 Lab Results: I have reviewed the past 24 hour labs
--- NOTE | 2016-10-24 08:33 | XRay Report ---
XR chest 2V Indication: Lead placement Comparison: Chest x-ray dated October 23, 2016 Technique: Frontal and lateral views of the chest. Findings: Continued mild cardiomegaly status post sternotomy. Pacemaker apparatus again demonstrated. Improved probable interstitial pulmonary edema. Suspect small bilateral pleural fluid. Visualized osseous and surrounding soft tissue structures appear grossly unchanged. IMPRESSION: As above. PROCEDURE INTERPRETED AT [facility] DEPARTMENT OF RADIOLOGY Final Report Signed by: Dr Beto Scott
[2016-10-24] MEDS: INSULIN GLARGINE 100 UNIT/ML SUBCUT SCH (08:34)
[2016-10-24] MEDS: INSULIN LISPRO 100 UNIT/ML SUBCUT SCH ×4 (08:34→21:15)
[2016-10-24] MEDS: FENOFIBRATE 145 MG TABLET PO SCH (08:34)
[2016-10-24] MEDS: DIGOXIN 0.125 MG TABLET PO SCH (08:35)
[2016-10-24] MEDS: OLMESARTAN 20 MG TABLET PO SCH (08:35)
[2016-10-24] MEDS: CALCIUM (CARBONATE)/VITAMIN D 500 MG-200 UNIT TABLET PO SCH (08:35)
[2016-10-24] MEDS: PRASUGREL 10 MG TABLET PO SCH (08:35)
[2016-10-24] MEDS: GLIMEPIRIDE 4 MG TABLET PO SCH ×2 (08:35→17:08)
[2016-10-24] MEDS: DOCUSATE SODIUM 100 MG CAPSULE PO SCH ×2 (08:35→21:04)
[2016-10-24] MEDS: amLODIPine 5 MG TABLET PO SCH (08:36)
[2016-10-24] MEDS: FUROSEMIDE 40 MG TABLET PO SCH (08:36)
[2016-10-24] MEDS: ATORVASTATIN 40 MG TABLET PO SCH (08:36)
[2016-10-24] MEDS: BENZONATATE 100 MG CAPSULE PO SCH ×2 (08:36→21:42)
[2016-10-24] MEDS: CARVEDILOL 12.5 MG TABLET PO SCH ×2 (08:36→21:41)
[2016-10-24] MEDS: NYSTATIN 500,000 UNIT/5 ML UDCUP SWISH/SWAL SCH ×4 (08:37→21:42)
[2016-10-24] MEDS: PANTOPRAZOLE 40 MG TABLET PO SCH (08:37)
[2016-10-24] MEDS: ASPIRIN EC 81 MG TABLET PO SCH (08:37)
[2016-10-24] MEDS: POLYETHYLENE GLYCOL POWDER 17 GM PACK PO SCH (08:37)
[2016-10-24] MEDS: cefTRIAXone 1,000 MG in SODIUM CHLORIDE 0.9% 100 ML IV SCH (08:38)
[2016-10-24] MEDS: LEVOFLOXACIN 500 MG TABLET PO SCH (09:05)
[2016-10-24] MEDS: FLUTICASONE 50 MCG NASAL SPRAY 16 GM BOTTLE BOTH NARES SCH (09:05)
--- NOTE | 2016-10-24 12:24 | Cardiology Progress Note ---
Wilfredo Redmond Vanessa, RN, am scribing for, and in the presence of, Panfilo Luna MD 12:24. Assessment and Plan - Time spent with patient Time spent with patient: Greater than 30 minutes (1) Status post implantation of automatic cardioverter/defibrillator (AICD) Status: Acute Assessment and plan: Status post placement of biventricular internal cardiac defibrillator on October 23. He is doing well postoperatively. Clinically, he already looks and feels better. Defibrillator interrogated this morning per [employer] manufacturer's representative, and device is functioning appropriately. From my standpoint he can be discharged home tomorrow and follow-up with myself in a week or 2 for wound check. We can then arrange for long-term follow-up with his primary robotype operator. Current Visit: Yes (2) Ischemic dilated cardiomyopathy Status: Chronic Assessment and plan: Severe ischemic cardiomyopathy which is chronic and has been present for years with most recent EF 20-25%, NYHA class II-III heart failure. Unfortunately, he did not improve with maximal medical therapy. He is now post a biventricular AICD implant on 10/23. Current Visit: Yes (3) Unstable angina Status: Chronic Assessment and plan: Cardiac catheterization on 10/22 showed stable but severe diffuse coronary artery disease, but patient does not have any good options for revascularization. We will continue to treat conservatively with medical management. Patient is not having any current anginal complaint. Current Visit: No (4) CAD (coronary artery disease) Status: Chronic Assessment and plan: Chronic. He is now status post cardiac catheterization on 10/22. Please see report for details. Continue low-dose ASA, Effient, statin, beta-tammy. Current Visit: Yes (5) Hypertension Status: Chronic Assessment and plan: Well controlled on current antihypertensive regimen. Will continue. Current Visit: Yes Qualifiers: Hypertension type: essential hypertension Qualified Code(s): I10 - Essential (primary) hypertension (6) Anemia Status: Chronic Assessment and plan: Chronic. He is routinely followed by Dr. Haile. This has been stable since 2 units PRBC transfusion on October 21 for hematocrit 23.7. Current hematocrit 28.2. Current Visit: No (7) UTI (urinary tract infection) Status: Acute Assessment and plan: Patient on appropriate antibiotics per internal medicine service. Overall, this is improving. Current Visit: Yes (8) Hx of CABG Status: Chronic Assessment and plan: Status post coronary bypass grafting 2 in 1985 with SVG to the LAD, SVG to the RCA. He had redo CABG in 2004 with FUENTES to obtuse marginal branch, SVG to LAD, and SVG to RCA. Since then, he has had cardiac catheterization with percutaneous coronary intervention with stenting to lesion distal to the anastomosis site of FUENTES graft and midportion of vein graft to LAD. Current Visit: No (9) Paroxysmal atrial fibrillation Status: Chronic Assessment and plan: Stable. He has been in sinus rhythm this admission. Continue digoxin. Current Visit: Yes (10) Chronic back pain Status: Chronic Assessment and plan: Continue current plan of care. Current Visit: Yes (11) Diabetes mellitus Status: Chronic Assessment and plan: Continue as present Current Visit: No Cardiology - PN: Subj Interval history: PRIMARY PROFESSOR OF FINE ART: DR. MATOS SUMMARY: Mr. Allred, 76 WWM, with history of hypertension, diabetes, hyperlipidemia, PAF, severe CAD status post CABG with redo and multiple stents. Patient has ischemic dilated cardiomyopathy with EF 20-25%, NYHA class II-III heart failure. He was admitted on October 19 with chest pain and significant UTI. Patient was ruled out for DE. He also was noted to have ventricular dyssynchrony with left bundle branch block. Cardiac catheterization on October 22 revealed severe diffuse coronary artery disease with no significant changes from previous cath and no good options for revascularization. Now status post biventricular internal cardiac defibrillator implant on October 23. OCTOBER 24, 2016: Mr. Allred appears well this morning. He is actually feeling considerably better already. He is having a modest amount of post op shoulder discomfort but is managed with pain medication. Left chest incision site without bruise or hematoma. Steri-strips and dressing are intact. Left upper extremity pulses are present and palpable. He is not having chest pain, dyspnea, or other anginal complaint this morning. Chest x-ray this morning shows leads and device in good position. FILLING STATION ATTENDANT-D interrogation per [employer] manufacturer's representative this morning revealed appropriate function. EKG and tele monitoring are stable. BP 120/60. Lasix has been resumed today. Patient is being kept in hospital for additional day of antibiotics for UTI. He is tentatively planned for discharge home tomorrow. Current Medications Acetaminophen (Tylenol Tab) 650 mg PO Q6H PRN PRN Reason: Fever > 100.4 or Headache Last Admin: 10/20/16 19:58 Dose: 650 mg Alprazolam (Xanax) 0.25 mg PO Q6H PRN PRN Reason: Anxiety Last Admin: 10/23/16 22:14 Dose: 0.25 mg Amlodipine Besylate (Norvasc) 5 mg PO DAILY [facility] Last Admin: 10/24/16 08:36 Dose: 5 mg Aspirin () 81 mg PO DAILY [facility] Last Admin: 10/24/16 08:37 Dose: 81 mg Atorvastatin Calcium (Lipitor) 40 mg PO DAILY [facility] Last Admin: 10/24/16 08:36 Dose: 40 mg Benzonatate (Tessalon) 200 mg PO BID [facility] Last Admin: 10/24/16 08:36 Dose: 200 mg Calcium/Vitamin D (Oscal 500 + D) 1 tablet PO DAILY [facility] Last Admin: 10/24/16 08:35 Dose: 1 tablet Carvedilol (Coreg) 12.5 mg PO BID [facility] Last Admin: 10/24/16 08:36 Dose: 12.5 mg Dextrose/Water (D50) 25 gm IV PRN PRN PRN Reason: Hypoglycemia with IV access Digoxin (Lanoxin Tab) 0.125 mg PO DAILY [facility] Last Admin: 10/24/16 08:35 Dose: 0.125 mg Docusate Sodium (Colace Cap) 100 mg PO BID [facility] Last Admin: 10/24/16 08:35 Dose: 100 mg Fenofibrate (Tricor) 145 mg PO DAILY [facility] Last Admin: 10/24/16 08:34 Dose: 145 mg Fluticasone Propionate (Flonase) 1 spray BOTH NARES DAILY [facility] Last Admin: 10/24/16 09:05 Dose: 1 spray Furosemide (Lasix Tab) 40 mg PO DAILY [facility] Last Admin: 10/24/16 08:36 Dose: 40 mg Glimepiride (Amaryl) 4 mg PO BID W/MEALS [facility] Last Admin: 10/24/16 08:35 Dose: 4 mg Glucagon () 1 mg IM PRN PRN PRN Reason: Hypoglycemia w/o IV access Ceftriaxone Sodium 1,000 mg/ (Sodium Chloride) 100 mls @ 200 mls/hr IV Q24H [facility] Last Admin: 10/24/16 08:38 Dose: 200 mls/hr Magnesium Sulfate 2 gm/ Premix 50 mls @ 25 mls/hr IV ONCE PRN PRN Reason: Magnesium less than 1.8 Stop: 10/24/16 14:14 Potassium Chloride 10 meq/ (Premix) 100 mls @ 100 mls/hr IV Q1H PRN PRN Reason: Potassium less than 3.5 Stop: 10/24/16 14:14 Insulin Glargine (Lantus) 40 unit SUBCUT AC BREAKFAST [facility] Last Admin: 10/24/16 08:34 Dose: 40 unit Insulin Human Lispro (Humalog) 0 unit SUBCUT ACHS [facility] PRN Reason: Protocol Last Admin: 10/24/16 08:34 Dose: Not Given Levofloxacin (Levaquin Tab) 500 mg PO DAILY [facility] Last Admin: 10/24/16 09:05 Dose: 500 mg Nitroglycerin (Nitrostat) 0.4 mg SL Q5M PRN PRN Reason: CHEST PAIN; UP TO 3 DOSES Nystatin (Mycostatin Liquid) 400,000 unit SWISH/SWAL QID [facility] Last Admin: 10/24/16 08:37 Dose: 400,000 unit Olmesartan (Benicar) 20 mg PO DAILY [facility] Last Admin: 10/24/16 08:35 Dose: 20 mg Ondansetron HCl (Zofran Inj) 4 mg IV Q6H PRN PRN Reason: Nausea/Vomiting Last Admin: 10/21/16 23:51 Dose: 4 mg Oxycodone/Acetaminophen (Percocet 5-325) 2 tablet PO Q4H PRN PRN Reason: Pain Moderate (4-7) Last Admin: 10/24/16 10:41 Dose: 2 tablet Pantoprazole Sodium (Protonix Tab) 40 mg PO DAILY [facility] Last Admin: 10/24/16 08:37 Dose: 40 mg Polyethylene Glycol (Miralax) 17 gm PO DAILY [facility] Last Admin: 10/24/16 08:37 Dose: 17 gm Prasugrel (Effient) 10 mg PO DAILY [facility] Last Admin: 10/24/16 08:35 Dose: 10 mg Exam (Progress Note) - Constitutional Vitals: Period Temp Pulse Resp BP Sys/Humphries Pulse Ox Last 24 Hr 97.8 F-99.4 F 53-77 18-20 103-150/54-107 94-100 Exam: General: Frail, elderly, chronically ill-appearing, pleasant, no acute distress HEENT: Normocephalic, atraumatic Neck: Supple Neck, Midline Trachea, no tenderness. Cardiac: Regular rhythm, 2/6 systolic murmur, no gallop, no rub Chest: Left chest pacemaker implant site with dry and intact incision, steri- strips and optifoam silver dressing in place. No significant bruising, no hematoma Lungs: Clear to Ascultation, No Wheeze, Rales, Rhonchi Neuro: Cranial Nerve 2-12 Intact, diffuse generalized weakness Abdomen: Soft, Active Bowel Sounds, No Masses, No Pulsations/Bruits Skin: Normal color, no rash, warm, dry Extremities: No Clubbing, No Cyanosis, No Edema, Normal Upper Extr. Pulses and normal lower extremity pulses Groin: No complication from cardiac catheterization Musculoskeletal: No acute abnormality noted Psychiatric: The patient is alert and oriented. Patient does not appear to be anxious or depressed. Result/EKG - Labs CBC & BMP: 10/24/16 04:27 10/24/16 04:27 Lab Results: I have reviewed the past 24 hour labs Labs: Laboratory Results - last 24 hr 10/23/16 10/23/16 10/23/16 12:52 15:27 20:58 WBC RBC Hgb Hct MCV MCH MCHC RDW Plt Count MPV Neut % (Auto) Lymph % (Auto) [facility] % (Auto) Eos % (Auto) Baso % (Auto) Neut # (Auto) Lymph # (Auto) [facility] # (Auto) Eos # (Auto) Baso # (Auto) Immature Gran % Nucleated RBC % Immature Gran # Nucleated RBCs # Platelet Estimate Hypochromasia Macrocytosis Morphology Comment Sodium Potassium Chloride Carbon Dioxide Anion Gap BUN Creatinine GFR Calculation BUN/Creatinine Ratio Glucose POC Glucose 176 H 224 H 190 H Calculated Osmolality Calcium PSA Diagnostic 10/24/16 10/24/16 10/24/16 04:23 04:27 04:27 WBC 3.0 L RBC 2.65 L Hgb 9.3 L Hct 28.2 L MCV 106.4 H MCH 35 H MCHC 33.0 RDW 18.6 H Plt Count 110 L MPV 11.5 Neut % (Auto) 47.1 Lymph % (Auto) 39.0 [facility] % (Auto) 9.2 Eos % (Auto) 2.7 Baso % (Auto) 0.3 Neut # (Auto) 1.4 Lymph # (Auto) 1.2 L [facility] # (Auto) 0.3 Eos # (Auto) 0.1 Baso # (Auto) 0.0 Immature Gran % 1.7 Nucleated RBC % 0.0 Immature Gran # 0.05 Nucleated RBCs # 0.00 Platelet Estimate Adequate Hypochromasia 1+ Macrocytosis Slight Morphology Comment Sodium 138 Potassium 3.9 Chloride 104 Carbon Dioxide 30 Anion Gap 7.9 BUN 17 Creatinine 1.20 GFR Calculation 71 BUN/Creatinine Ratio 14.00 Glucose 112 H POC Glucose Calculated Osmolality 277.7 Calcium 8.0 L PSA Diagnostic 4.6 H 10/24/16 07:36 WBC RBC Hgb Hct MCV MCH MCHC RDW Plt Count MPV Neut % (Auto) Lymph % (Auto) [facility] % (Auto) Eos % (Auto) Baso % (Auto) Neut # (Auto) Lymph # (Auto) [facility] # (Auto) Eos # (Auto) Baso # (Auto) Immature Gran % Nucleated RBC % Immature Gran # Nucleated RBCs # Platelet Estimate Hypochromasia Macrocytosis Morphology Comment Sodium Potassium Chloride Carbon Dioxide Anion Gap BUN Creatinine GFR Calculation BUN/Creatinine Ratio Glucose POC Glucose 128 H Calculated Osmolality Calcium PSA Diagnostic - Diagnostic Findings Procedure: Chest x-ray: image reviewed by me, report reviewed by me (10/24/16: Device and leads with appropriate position) - EKG EKG results: interpreted by me, no acute changes EKG shows: sinus rhythm (Intermittent atrial pacing) Cheryl Redmond Michael, MD, personally performed the services described in this documentation, ascribed by Pebbles Villalobos RN in my presence, and it is both accurate and complete .
[2016-10-24] MEDS ORDERED: ZALEPLON 5 MG CAPSULE PO PRN (21:56)
[2016-10-25 05:08] LABS: Basophils % 0.7 % (0.0-0.8); Eosinophils # 0.1 10*3/uL (0.0-0.87); Eosinophils % 2.5 % (0.00-10.9); Hematocrit 29.4 VOL% (42.0-52.0); Hemoglobin 9.7 GM/DL (14.0-18.0); Immature Granulocytes % 0.7 %; Immature Granulocytes Absolute 0.02 #; Lymphocytes # 1.1 10*3/uL (1.4-4.0); Lymphocytes % 40.9 % (21.2-54.2); Mean Corpuscular Hemoglobin 35 PG (27-34); Mean Corpuscular Volume 105.8 FL (87-102); Mean Platelet Volume 10.9 FL (9.6-12.0); Monocytes # 0.2 10*3/uL (0.11-0.8); Monocytes % 7.9 % (1.7-12.7); Neutrophils # 1.3 10*3/uL (1.4-7.4); Neutrophils % 47.3 % (38.7-73.9); Platelet Count 112 T/CUMM (130-400); Red Blood Count 2.78 MC/CUMM (3.8-5.5); Red Cell Distribution Width 17.8 % (9.3-17.3); White Blood Count 2.8 T/CUMM (4-12)
[2016-10-25 05:32] LABS: Calcium 7.9 MG/DL (8.5-10.1); Osmolality,Calculated 284.1 MOS/KG (273-304); Potassium 4.1 MMOL/L (3.5-5.1)
[2016-10-25 05:41] LABS: Anisocytosis 1+; Band Neutrophils 3 % (0-10); Eosinophils 3 % (0-10); Lymphocytes 44 % (20-55); Platelet Estimate Adequate; Polychromasia 1+; Segmented Neutrophils 47 % (50-85); Tear Drop Cells 1+; Total Cells Counted 100
[2016-10-25] MEDS: oxyCODONE/ACETAMINOPHEN 5-325 MG TABLET PO PRN ×2 (05:53→09:54)
[2016-10-25] MEDS: FENOFIBRATE 145 MG TABLET PO SCH (08:30)
[2016-10-25] MEDS: CALCIUM (CARBONATE)/VITAMIN D 500 MG-200 UNIT TABLET PO SCH (08:30)
[2016-10-25] MEDS: NYSTATIN 500,000 UNIT/5 ML UDCUP SWISH/SWAL SCH (08:30)
[2016-10-25] MEDS: OLMESARTAN 20 MG TABLET PO SCH (08:30)
[2016-10-25] MEDS: PRASUGREL 10 MG TABLET PO SCH (08:30)
[2016-10-25] MEDS: POLYETHYLENE GLYCOL POWDER 17 GM PACK PO SCH (08:30)
[2016-10-25] MEDS: DIGOXIN 0.125 MG TABLET PO SCH (08:31)
[2016-10-25] MEDS: CARVEDILOL 12.5 MG TABLET PO SCH (08:31)
[2016-10-25] MEDS: amLODIPine 5 MG TABLET PO SCH (08:31)
[2016-10-25] MEDS: INSULIN GLARGINE 100 UNIT/ML SUBCUT SCH (08:31)
[2016-10-25] MEDS: ASPIRIN EC 81 MG TABLET PO SCH (08:31)
[2016-10-25] MEDS: BENZONATATE 100 MG CAPSULE PO SCH (08:31)
[2016-10-25] MEDS: ATORVASTATIN 40 MG TABLET PO SCH (08:31)
[2016-10-25] MEDS: FUROSEMIDE 40 MG TABLET PO SCH (08:31)
[2016-10-25] MEDS: PANTOPRAZOLE 40 MG TABLET PO SCH (08:31)
[2016-10-25] MEDS: DOCUSATE SODIUM 100 MG CAPSULE PO SCH (08:31)
[2016-10-25] MEDS: LEVOFLOXACIN 500 MG TABLET PO SCH (08:31)
[2016-10-25] MEDS: GLIMEPIRIDE 4 MG TABLET PO SCH (08:31)
[2016-10-25] MEDS: INSULIN LISPRO 100 UNIT/ML SUBCUT SCH ×2 (08:32→12:20)
[2016-10-25] MEDS: cefTRIAXone 1,000 MG in SODIUM CHLORIDE 0.9% 100 ML IV SCH (08:40)
[2016-10-25] MEDS: FLUTICASONE 50 MCG NASAL SPRAY 16 GM BOTTLE BOTH NARES SCH (08:41)
--- NOTE | 2016-10-25 08:56 | Discharge Summary ---
Hospital Course - Hospital Course Hospital Course: Patient is 76-year-old male who was admitted to acute care with chest pain and nausea and vomiting. Patient has history of significant coronary artery disease requiring CABG twice and previous stents, diabetes, hypertension, chronic back pain requiring surgeries, hyperlipidemia and chronic anemia. Patient had 103 fever on admission. He was started on IV antibiotics. Patient was found to have urinary tract infection. His cardiac enzymes were consistent with non-STEMI. He was seen in consultation by cardiology. An echocardiogram was done which showed ejection fraction of about 25%. Patient underwent cardiac catheterization. No intervention was done. It was recommended that he has a defibrillator placed because of severe ischemic cardiomyopathy. This was done and patient has tolerated procedure well. He did require 2 units of packed RBCs during the hospital stay. He was also seen by Dr. Haile from hematology. Patient has improved and is ready to be discharged home. He will continue his home medications. His Lasix has been increased. He will get another 7 days of Levaquin. Discussed with patient and his Diagnosis - Discharge Diagnosis (1) UTI (urinary tract infection) Status: Acute (2) Chest pain Status: Acute (3) Myeloproliferative disease Status: Acute (4) Diabetes mellitus Status: Chronic (5) Diastolic heart failure Status: Acute (6) Gastroesophageal reflux disease Status: Acute (7) Lung abnormality Status: Acute (8) CAD (coronary artery disease) Status: Chronic (9) Hx of CABG Status: Chronic (10) Hypertension Status: Chronic Discharge Plan - Discharge Data Disposition: Disch To Home/Self Care Condition at Discharge: Stable Discharge Diet: advance to your usual diet Activity: resume usual activities as tolerated, other (Per cardiology for defibrillator precaution) - Discharge Medications New Furosemide Tab [Lasix Tab] 40 mg PO DAILY #30 tablet Levofloxacin Tab [Levaquin Tab] 500 mg PO DAILY #7 tablet Prasugrel [Effient] 10 mg PO DAILY tablet Continue Carvedilol [Coreg] 12.5 mg PO BID Calcium (Carb)/Vit D 500-200 [Oscal 500 + D] 1 tablet PO DAILY Aspirin [Ecotrin] 81 mg PO DAILY Fenofibrate [Tricor] 145 mg PO DAILY Insulin Glargine [Lantus] 40 unit SUBCUT AC BREAKFAST Digoxin Tab [Lanoxin Tab] 0.125 mg PO DAILY Oxycodone HCl/Acetaminophen [Percocet 10-325 mg Tablet] 1 each PO QID PRN PRN Reason: Pain amLODIPine [Norvasc] 5 mg PO DAILY Atorvastatin [Lipitor] 40 mg PO DAILY Glimepiride [Amaryl] 4 mg PO BID W/MEALS Olmesartan [Benicar] 20 mg PO DAILY Polyethylene Glycol Powder [Miralax] 17 gm PO DAILY Omeprazole 20 mg PO DAILY Nitroglycerin Sl Tab [Nitrostat] 0.4 mg SL Q5M PRN PRN Reason: CHEST PAIN; UP TO 3 DOSES Fluticasone Propionate [Flonase Allergy Relief] 1 spray BOTH NARES DAILY Discontinued Furosemide Tab [Lasix Tab] 20 mg PO DAILY - Follow Up or Referral - Forms/Instructions Additional Discharge Instructions: Call to make appointment in office in about 10 days. With CBC BMP. Call in new medications Exam - Constitutional Vitals: Period Temp Pulse Resp BP Sys/Humphries Pulse Ox Last 24 Hr 97 F-98.5 F 53-63 18-20 101-135/51-69 96-100 Exam: Examination: GENERAL: NAD. HEENT: PERRLA. EOMI. NECK: Neck is supple. Bilateral carotid bruit CVS: Regular rate and rhythm. S1 and S2 are normal. Systolic murmur at left lower sternal border. Defibrillator present in the left upper chest wall RESPIRATORY: Lungs are clear. ABDOMEN: Soft but mildly tender and epigastric area EXT: 1+ edema. Peripheral pulses are present. SALES REPRESENTATIVE FACILITY SERVICES: Nonfocal SKIN: Warm and dry. Discharge Results Procedures and tests throughout hospitalization: Pending Orders 10/21/16 23:40 Occult Blood, Stool Routine Labs on day of discharge: Labs from last 24 hours 10/25/16 10/25/16 10/25/16 07:31 04:39 04:39 WBC 2.8 L RBC 2.78 L Hgb 9.7 L Hct 29.4 L MCV 105.8 H MCH 35 H MCHC 33.0 RDW 17.8 H Plt Count 112 L MPV 10.9 Neut % (Auto) 47.3 Lymph % (Auto) 40.9 [place] % (Auto) 7.9 Eos % (Auto) 2.5 Baso % (Auto) 0.7 Neut # (Auto) 1.3 L Lymph # (Auto) 1.1 L [place] # (Auto) 0.2 Eos # (Auto) 0.1 Baso # (Auto) 0.0 Total Counted 100 Immature Gran % 0.7 Nucleated RBC % 0.0 Immature Gran # 0.02 Segmented Neutrophils 47 L Band Neutrophils 3 Lymphocytes 44 Monocytes 3 Eosinophils 3 Nucleated RBCs # 0.00 Platelet Estimate Adequate Polychromasia 1+ Anisocytosis 1+ Tear Drop Cells 1+ Sodium 142 Potassium 4.1 Chloride 104 Carbon Dioxide 30 Anion Gap 12.1 BUN 16 Creatinine 1.20 GFR Calculation 72 BUN/Creatinine Ratio 13.00 Glucose 120 H POC Glucose 103 Calculated Osmolality 284.1 Calcium 7.9 L PSA Diagnostic 10/24/16 10/24/16 10/24/16 20:24 16:25 11:23 WBC RBC Hgb Hct MCV MCH MCHC RDW Plt Count MPV Neut % (Auto) Lymph % (Auto) [place] % (Auto) Eos % (Auto) Baso % (Auto) Neut # (Auto) Lymph # (Auto) [place] # (Auto) Eos # (Auto) Baso # (Auto) Total Counted Immature Gran % Nucleated RBC % Immature Gran # Segmented Neutrophils Band Neutrophils Lymphocytes Monocytes Eosinophils Nucleated RBCs # Platelet Estimate Polychromasia Anisocytosis Tear Drop Cells Sodium Potassium Chloride Carbon Dioxide Anion Gap BUN Creatinine GFR Calculation BUN/Creatinine Ratio Glucose POC Glucose 213 H 206 H 207 H Calculated Osmolality Calcium PSA Diagnostic 10/24/16 04:23 WBC RBC Hgb Hct MCV MCH MCHC RDW Plt Count MPV Neut % (Auto) Lymph % (Auto) [place] % (Auto) Eos % (Auto) Baso % (Auto) Neut # (Auto) Lymph # (Auto) [place] # (Auto) Eos # (Auto) Baso # (Auto) Total Counted Immature Gran % Nucleated RBC % Immature Gran # Segmented Neutrophils Band Neutrophils Lymphocytes Monocytes Eosinophils Nucleated RBCs # Platelet Estimate Polychromasia Anisocytosis Tear Drop Cells Sodium Potassium Chloride Carbon Dioxide Anion Gap BUN Creatinine GFR Calculation BUN/Creatinine Ratio Glucose POC Glucose Calculated Osmolality Calcium PSA Diagnostic 4.6 H DS: Provider Date of admission: 10/19/16 06:22 Primary care physician: Valentino Greenwood MD Attending physician on admission: Valentino Greenwood MD Consults: 10/19/16 06:22 Consult to Case Mgmt/Social Srvs [CONS] Routine Reason for Case Mgmt/Social Srvs: Discharge Planning 10/19/16 12:02 Consult to Physician [CONS] Routine Comment: Coronary disease with chest pain Consulting Provider: Beau Otto Notified: irwin Date Notified: 10/20/16 Time Notified: 08:40 10/20/16 17:58 Consult to Physician [CONS] Routine Comment: anemia, uti, NSTEMI Consulting Provider: Eugene Haile Person Notified: Mary Carmen Date Notified: 10/21/16 Time Notified: 09:15 Discharging clinician: Valentino Greenwood MD
--- NOTE | 2016-10-25 10:55 | Cardiology Progress Note ---
Assessment and Plan (1) Status post implantation of automatic cardioverter/defibrillator (AICD) Status: Acute Assessment and plan: Status post placement of biventricular internal cardiac defibrillator on October 23. He is doing well postoperatively. Clinically, he already looks and feels better. Defibrillator interrogated this morning per [employer] hospital insurance representative, and device is functioning appropriately. From my standpoint he can be discharged home and follow-up with myself in a week or 2 for wound check. We can then arrange for long-term follow-up with his primary mathematician. Current Visit: Yes (2) Ischemic dilated cardiomyopathy Status: Chronic Assessment and plan: Severe ischemic cardiomyopathy which is chronic and has been present for years with most recent EF 20-25%, NYHA class II-III heart failure. Unfortunately, he did not improve with maximal medical therapy. He is now post a biventricular AICD implant on 10/23. Current Visit: Yes (3) Unstable angina Status: Chronic Assessment and plan: Cardiac catheterization on 10/22 showed stable but severe diffuse coronary artery disease, but patient does not have any good options for revascularization. We will continue to treat conservatively with medical management. Patient is not having any current anginal complaint. Current Visit: No (4) CAD (coronary artery disease) Status: Chronic Assessment and plan: Chronic. He is now status post cardiac catheterization on 10/22. Please see report for details. Continue low-dose ASA, Effient, statin, beta-tammy. Current Visit: Yes (5) Hypertension Status: Chronic Assessment and plan: Well controlled on current antihypertensive regimen. Will continue. Current Visit: Yes Qualifiers: Hypertension type: essential hypertension Qualified Code(s): I10 - Essential (primary) hypertension (6) Anemia Status: Chronic Assessment and plan: Chronic. He is routinely followed by Dr. Haile. This has been stable since 2 units PRBC transfusion on October 21 for hematocrit 23.7. Current hematocrit 28.2. Current Visit: No (7) UTI (urinary tract infection) Status: Acute Assessment and plan: Patient on appropriate antibiotics per internal medicine service. Overall, this is improving. Current Visit: Yes (8) Hx of CABG Status: Chronic Assessment and plan: Status post coronary bypass grafting 2 in 1985 with SVG to the LAD, SVG to the RCA. He had redo CABG in 2004 with FUENTES to obtuse marginal branch, SVG to LAD, and SVG to RCA. Since then, he has had cardiac catheterization with percutaneous coronary intervention with stenting to lesion distal to the anastomosis site of FUENTES graft and midportion of vein graft to LAD. Current Visit: No (9) Paroxysmal atrial fibrillation Status: Chronic Assessment and plan: Stable. He has been in sinus rhythm this admission. Continue digoxin. Current Visit: Yes (10) Chronic back pain Status: Chronic Assessment and plan: Continue current plan of care. Current Visit: Yes (11) Diabetes mellitus Status: Chronic Assessment and plan: Continue as present Current Visit: No Cardiology - PN: Subj Interval history: Mr. Allred is doing great today. His breathing is already improved. He has some chronic musculoskeletal pain and some soreness postoperatively. He is on chronic narcotic therapy trying to manage these issues. He has had no new problems or complications overnight. His ICD pocket shows no evidence of problem or complication. I think he is stable for discharge home. Current Medications Acetaminophen (Tylenol Tab) 650 mg PO Q6H PRN PRN Reason: Fever > 100.4 or Headache Last Admin: 10/20/16 19:58 Dose: 650 mg Alprazolam (Xanax) 0.25 mg PO Q6H PRN PRN Reason: Anxiety Last Admin: 10/23/16 22:14 Dose: 0.25 mg Amlodipine Besylate (Norvasc) 5 mg PO DAILY [facility] Last Admin: 10/25/16 08:31 Dose: 5 mg Aspirin () 81 mg PO DAILY [facility] Last Admin: 10/25/16 08:31 Dose: 81 mg Atorvastatin Calcium (Lipitor) 40 mg PO DAILY [facility] Last Admin: 10/25/16 08:31 Dose: 40 mg Benzonatate (Tessalon) 200 mg PO BID [facility] Last Admin: 10/25/16 08:31 Dose: 200 mg Calcium/Vitamin D (Oscal 500 + D) 1 tablet PO DAILY [facility] Last Admin: 10/25/16 08:30 Dose: 1 tablet Carvedilol (Coreg) 12.5 mg PO BID [facility] Last Admin: 10/25/16 08:31 Dose: 12.5 mg Dextrose/Water (D50) 25 gm IV PRN PRN PRN Reason: Hypoglycemia with IV access Digoxin (Lanoxin Tab) 0.125 mg PO DAILY [facility] Last Admin: 10/25/16 08:31 Dose: 0.125 mg Docusate Sodium (Colace Cap) 100 mg PO BID [facility] Last Admin: 10/25/16 08:31 Dose: 100 mg Fenofibrate (Tricor) 145 mg PO DAILY [facility] Last Admin: 10/25/16 08:30 Dose: 145 mg Fluticasone Propionate (Flonase) 1 spray BOTH NARES DAILY [facility] Last Admin: 10/25/16 08:41 Dose: 1 spray Furosemide (Lasix Tab) 40 mg PO DAILY [facility] Last Admin: 10/25/16 08:31 Dose: 40 mg Glimepiride (Amaryl) 4 mg PO BID W/MEALS [facility] Last Admin: 10/25/16 08:31 Dose: 4 mg Glucagon () 1 mg IM PRN PRN PRN Reason: Hypoglycemia w/o IV access Ceftriaxone Sodium 1,000 mg/ (Sodium Chloride) 100 mls @ 200 mls/hr IV Q24H [facility] Last Infusion: 10/25/16 08:53 Dose: 0 mls/hr Insulin Glargine (Lantus) 40 unit SUBCUT AC BREAKFAST [facility] Last Admin: 10/25/16 08:31 Dose: 40 unit Insulin Human Lispro (Humalog) 0 unit SUBCUT ACHS [facility] PRN Reason: Protocol Last Admin: 10/25/16 08:32 Dose: Not Given Levofloxacin (Levaquin Tab) 500 mg PO DAILY [facility] Last Admin: 10/25/16 08:31 Dose: 500 mg Nitroglycerin (Nitrostat) 0.4 mg SL Q5M PRN PRN Reason: CHEST PAIN; UP TO 3 DOSES Nystatin (Mycostatin Liquid) 400,000 unit SWISH/SWAL QID [facility] Last Admin: 10/25/16 08:30 Dose: 400,000 unit Olmesartan (Benicar) 20 mg PO DAILY [facility] Last Admin: 10/25/16 08:30 Dose: 20 mg Ondansetron HCl (Zofran Inj) 4 mg IV Q6H PRN PRN Reason: Nausea/Vomiting Last Admin: 10/21/16 23:51 Dose: 4 mg Oxycodone/Acetaminophen (Percocet 5-325) 2 tablet PO Q4H PRN PRN Reason: Pain Moderate (4-7) Last Admin: 10/25/16 09:54 Dose: 2 tablet Pantoprazole Sodium (Protonix Tab) 40 mg PO DAILY [facility] Last Admin: 10/25/16 08:31 Dose: 40 mg Polyethylene Glycol (Miralax) 17 gm PO DAILY [facility] Last Admin: 10/25/16 08:30 Dose: 17 gm Prasugrel (Effient) 10 mg PO DAILY [facility] Last Admin: 10/25/16 08:30 Dose: 10 mg Zaleplon (Sonata) 5 mg PO BEDTIME PRN PRN Reason: Sleep Last Admin: 10/24/16 22:21 Dose: 5 mg Exam (Progress Note) - Constitutional Vitals: Period Temp Pulse Resp BP Sys/Humphries Pulse Ox Last 24 Hr 97 F-98.5 F 53-63 18-20 101-135/51-69 96-100 Exam: General: Frail, elderly, chronically ill-appearing, pleasant, no acute distress HEENT: Normocephalic, atraumatic Neck: Supple Neck, Midline Trachea, no tenderness. Cardiac: Regular rhythm, 2/6 systolic murmur, no gallop, no rub Chest: Left chest pacemaker implant site with dry and intact incision, steri- strips and optifoam silver dressing in place. No significant bruising, no hematoma Lungs: Clear to Ascultation, No Wheeze, Rales, Rhonchi Neuro: Cranial Nerve 2-12 Intact, diffuse generalized weakness Abdomen: Soft, Active Bowel Sounds, No Masses, No Pulsations/Bruits Skin: Normal color, no rash, warm, dry Extremities: No Clubbing, No Cyanosis, No Edema, Normal Upper Extr. Pulses and normal lower extremity pulses Groin: No complication from cardiac catheterization Musculoskeletal: No acute abnormality noted Psychiatric: The patient is alert and oriented. Patient does not appear to be anxious or depressed. Result/EKG - Labs CBC & BMP: 10/25/16 04:39 10/25/16 04:39 Lab Results: I have reviewed the past 24 hour labs Labs: Laboratory Results - last 24 hr 10/24/16 10/24/16 10/24/16 11:23 16:25 20:24 WBC RBC Hgb Hct MCV MCH MCHC RDW Plt Count MPV Neut % (Auto) Lymph % (Auto) [place] % (Auto) Eos % (Auto) Baso % (Auto) Neut # (Auto) Lymph # (Auto) [place] # (Auto) Eos # (Auto) Baso # (Auto) Total Counted Immature Gran % Nucleated RBC % Immature Gran # Segmented Neutrophils Band Neutrophils Lymphocytes Monocytes Eosinophils Nucleated RBCs # Platelet Estimate Polychromasia Anisocytosis Tear Drop Cells Sodium Potassium Chloride Carbon Dioxide Anion Gap BUN Creatinine GFR Calculation BUN/Creatinine Ratio Glucose POC Glucose 207 H 206 H 213 H Calculated Osmolality Calcium 10/25/16 10/25/16 10/25/16 04:39 04:39 07:31 WBC 2.8 L RBC 2.78 L Hgb 9.7 L Hct 29.4 L MCV 105.8 H MCH 35 H MCHC 33.0 RDW 17.8 H Plt Count 112 L MPV 10.9 Neut % (Auto) 47.3 Lymph % (Auto) 40.9 [place] % (Auto) 7.9 Eos % (Auto) 2.5 Baso % (Auto) 0.7 Neut # (Auto) 1.3 L Lymph # (Auto) 1.1 L [place] # (Auto) 0.2 Eos # (Auto) 0.1 Baso # (Auto) 0.0 Total Counted 100 Immature Gran % 0.7 Nucleated RBC % 0.0 Immature Gran # 0.02 Segmented Neutrophils 47 L Band Neutrophils 3 Lymphocytes 44 Monocytes 3 Eosinophils 3 Nucleated RBCs # 0.00 Platelet Estimate Adequate Polychromasia 1+ Anisocytosis 1+ Tear Drop Cells 1+ Sodium 142 Potassium 4.1 Chloride 104 Carbon Dioxide 30 Anion Gap 12.1 BUN 16 Creatinine 1.20 GFR Calculation 72 BUN/Creatinine Ratio 13.00 Glucose 120 H POC Glucose 103 Calculated Osmolality 284.1 Calcium 7.9 L - EKG EKG results: interpreted by me
[2016-10-25 11:45] VITALS: BP 125/60
== END 2016-10-25 13:00 | disposition home or self-care (01) | DRG 222 ==
LOC: N.ED 04:32 → N.EDINP 06:22 → N.2E 09:07 → N.TELEN 12:13
PROVIDERS: ADMIT Internal Medicine; ATTEND Internal Medicine

== ENCOUNTER 2018-01-16 16:43 | Inpatient (IN) ==
[2018-01-16] MEDS ORDERED: SODIUM CHLORIDE 0.9% 1,000 ML IV STA (17:33)
[2018-01-16] MEDS ORDERED: ONDANSETRON 4 MG/2 ML VIAL IV STA (17:33)
[2018-01-16] MEDS ORDERED: HYDROmorphone 2 MG/1 ML VIAL IV STA (17:36)
[2018-01-16 18:19] LABS: Eosinophils % 0.8 % (0.00-10.9); Hematocrit 28.5 VOL% (42.0-52.0); Hemoglobin 9.3 GM/DL (14.0-18.0); Lymphocytes # 0.7 10*3/uL (1.4-4.0); Lymphocytes % 56.9 % (21.2-54.2); Mean Corpuscular HGB Conc 32.6 GM/DL (32-36); Mean Corpuscular Hemoglobin 37 PG (27-34); Mean Corpuscular Volume 113.5 FL (87-102); Mean Platelet Volume 12.6 FL (9.6-12.0); Monocytes % 2.4 % (1.7-12.7); NRBC # 0.06 10*3/uL; Neutrophils # 0.5 10*3/uL (1.4-7.4); Neutrophils % 39.9 % (38.7-73.9); Platelet Count 70 T/CUMM (130-400); Red Blood Count 2.51 MC/CUMM (3.8-5.5); Red Cell Distribution Width 19.2 % (9.3-17.3); White Blood Count 1.2 T/CUMM (4-12)
[2018-01-16 18:58] LABS: Band Neutrophils 2 % (0-10); Eosinophils 2 % (0-10); Lymphocytes 46 % (20-55); Nucleated Red Blood Cells 1 (0-5); Segmented Neutrophils 30 % (50-85); Total Cells Counted 50
[2018-01-16 18:59] LABS: Polychromasia Few
[2018-01-16 19:00] LABS: Hypochromasia 1+; Macrocytosis 1+
[2018-01-16 19:08] LABS: Albumin 3.9 G/DL (3.4-5.0); Bilirubin,Total 0.8 MG/DL (0.2-1.0); Calcium 8.7 MG/DL (8.5-10.1); Osmolality,Calculated 284.5 MOS/KG (273-304); Potassium 4.3 MMOL/L (3.5-5.1); Total Protein 7.6 G/DL (6.4-8.3)
[2018-01-16 19:10] LABS: Atypical Lymphocytes Few; Platelet Estimate Decreased
[2018-01-16] MEDS: HYDROmorphone 2 MG/1 ML VIAL IV STA ×2 (20:25→22:47)
[2018-01-16] MEDS: DEXTROSE 5% NACL 0.9% 1,000 ML IV SCH (20:29)
[2018-01-16 20:58] LABS: Apearance,Urine CLEAR (Clear); Bilirubin,Urine Negative (Negative); Blood, Urine Negative (Negative); Glucose,Urine (UA) Negative (Negative); Ketones,Urine Negative (Negative); Nitrite,Urine Negative (Negative); Protein,Urine Negative; Squamous Epithelial Cell,Urine Occasional /HPF (0-10); Urine Color Yellow (Yellow); Urine Specific Gravity 1.057 (1.001-1.035); Urine Urobilinogen < 2.0 EU/DL (0.2-1.0); WBC,Urine 1 /HPF (0-6)
[2018-01-16] MEDS: DOCUSATE SODIUM 100 MG CAPSULE PO SCH (22:20)
[2018-01-16] MEDS: ATORVASTATIN 40 MG TABLET PO SCH (22:21)
[2018-01-16] MEDS: RANOLAZINE 500 MG TABLET PO SCH (22:21)
[2018-01-16] MEDS: oxyCODONE/ACETAMINOPHEN 5-325 MG TABLET PO PRN (22:22)
[2018-01-16] MEDS: CARVEDILOL 6.25 MG TABLET PO SCH (22:23)
[2018-01-17] MEDS ORDERED: ACETAMINOPHEN/diphenhydrAMINE 500-25 MG TABLET PO ONE (01:30)
[2018-01-17] MEDS: ONDANSETRON 4 MG/2 ML VIAL IV PRN (02:53)
[2018-01-17] MEDS: DEXTROSE 5% NACL 0.9% 1,000 ML IV SCH ×3 (03:58→20:31)
[2018-01-17] MEDS: oxyCODONE/ACETAMINOPHEN 5-325 MG TABLET PO PRN ×2 (04:04→11:41)
[2018-01-17] MEDS: PANTOPRAZOLE 40 MG TABLET PO SCH (09:34)
[2018-01-17] MEDS: DOCUSATE SODIUM 100 MG CAPSULE PO SCH ×2 (09:34→20:25)
[2018-01-17] MEDS: RANOLAZINE 500 MG TABLET PO SCH ×2 (09:34→20:25)
[2018-01-17] MEDS: CARVEDILOL 6.25 MG TABLET PO SCH ×2 (09:34→16:10)
[2018-01-17] MEDS ORDERED: oxyCODONE/ACETAMINOPHEN 5-325 MG TABLET PO PRN (15:56)
[2018-01-17] MEDS ORDERED: ACETAMINOPHEN 325 MG TABLET PO PRN (16:18)
[2018-01-17] MEDS: HYDROmorphone 2 MG/1 ML VIAL IV PRN (17:33)
[2018-01-17] MEDS: ATORVASTATIN 40 MG TABLET PO SCH (20:25)
[2018-01-17] MEDS: oxyCODONE IR 5 MG TABLET PO PRN (20:28)
[2018-01-18] MEDS: HYDROmorphone 2 MG/1 ML VIAL IV PRN ×5 (01:34→23:30)
[2018-01-18] MEDS: DEXTROSE 5% NACL 0.9% 1,000 ML IV SCH ×3 (04:07→23:31)
[2018-01-18] MEDS ORDERED: MAGNESIUM HYDROXIDE SUSP 30 ML UDCUP PO PRN (05:37)
[2018-01-18] MEDS ORDERED: LACTULOSE 20 GM/30 ML UDCUP PO PRN (08:26)
[2018-01-18] MEDS ORDERED: POLYETHYLENE GLYCOL POWDER 255 GM BOTTLE PO SCH (09:00)
[2018-01-18] MEDS ORDERED: NON-FORMULARY MEDICATION (Omeprazole [Omeprazole] 20 MG) PO SCH (09:00)
[2018-01-18] MEDS ORDERED: ATORVASTATIN 40 MG TABLET PO SCH (09:00)
[2018-01-18 09:41] LABS: Basophils % 0.8 % (0.0-0.8); Eosinophils % 0.8 % (0.00-10.9); Hematocrit 22.9 VOL% (42.0-52.0); Lymphocytes # 0.7 10*3/uL (1.4-4.0); Lymphocytes % 60.5 % (21.2-54.2); Mean Corpuscular HGB Conc 32.3 GM/DL (32-36); Mean Corpuscular Hemoglobin 37 PG (27-34); Mean Corpuscular Volume 115.7 FL (87-102); Mean Platelet Volume 12.6 FL (9.6-12.0); Monocytes % 2.5 % (1.7-12.7); NRBC # 0.04 10*3/uL; Neutrophils # 0.4 10*3/uL (1.4-7.4); Neutrophils % 35.4 % (38.7-73.9); Platelet Count 64 T/CUMM (130-400); Red Cell Distribution Width 19.4 % (9.3-17.3); White Blood Count 1.2 T/CUMM (4-12)
[2018-01-18 09:46] LABS: Hemoglobin 7.4 GM/DL (14.0-18.0); Red Blood Count 1.98 MC/CUMM (3.8-5.5)
[2018-01-18] MEDS: DIGOXIN 0.125 MG TABLET PO SCH (09:49)
[2018-01-18] MEDS: CARVEDILOL 6.25 MG TABLET PO SCH ×2 (09:49→17:36)
[2018-01-18] MEDS: FLUTICASONE 50 MCG NASAL SPRAY 16 GM BOTTLE BOTH NARES SCH (09:49)
[2018-01-18 09:52] LABS: INR 1.3; PT Patient Result 13.6 SECS; Partial Thromboplastin Time 29.7 SECS (0-40)
[2018-01-18 09:56] LABS: Calcium 7.5 MG/DL (8.5-10.1)
[2018-01-18 09:57] LABS: Atypical Lymphocytes Few; Lymphocytes 64 % (20-55); Nucleated Red Blood Cells 3 (0-5); Potassium 4.4 MMOL/L (3.5-5.1); Segmented Neutrophils 34 % (50-85); Total Cells Counted 100
[2018-01-18 09:58] LABS: Anisocytosis 1+; Hypochromasia 1+; Macrocytosis 1+; Ovalocytes Slight; Platelet Estimate Decreased
[2018-01-18] MEDS: CITALOPRAM 20 MG TABLET PO SCH (12:09)
[2018-01-18] MEDS: PRASUGREL 10 MG TABLET PO SCH (12:09)
[2018-01-18] MEDS: LORATADINE 10 MG TABLET PO SCH (12:09)
[2018-01-18] MEDS: IRBESARTAN 150 MG TABLET PO SCH (12:09)
[2018-01-18] MEDS: DOCUSATE SODIUM 100 MG CAPSULE PO SCH ×2 (12:09→21:28)
[2018-01-18] MEDS: ASPIRIN EC 81 MG TABLET PO SCH (12:09)
[2018-01-18] MEDS: FUROSEMIDE 40 MG TABLET PO SCH (12:10)
[2018-01-18] MEDS: CALCIUM (CARBONATE)/VITAMIN D 500 MG-200 UNIT TABLET PO SCH (12:10)
[2018-01-18] MEDS: PANTOPRAZOLE 40 MG TABLET PO SCH (12:10)
[2018-01-18] MEDS: ISOSORBIDE MONONITRATE 30 MG TABLET PO SCH (12:10)
[2018-01-18] MEDS: RANOLAZINE 500 MG TABLET PO SCH ×3 (12:10→21:28)
[2018-01-18] MEDS: FENOFIBRATE 145 MG TABLET PO SCH (12:10)
[2018-01-18] MEDS ORDERED: SODIUM CHLORIDE 0.9% 1,000 ML IV PRN (13:39)
[2018-01-18] MEDS ORDERED: DEXAMETHASONE 10 MG/1 ML VIAL ONE (13:51)
[2018-01-18] MEDS ORDERED: DEXAMETHASONE 4 MG/1 ML VIAL ONE (13:51)
[2018-01-18] MEDS ORDERED: TISSUE ADHESIVE 1 EACH APPLICATOR TOP ONE (13:51)
[2018-01-18] MEDS ORDERED: ceFAZolin 1,000 MG VIAL ONE (13:51)
[2018-01-18] MEDS ORDERED: LIDOCAINE 1% 20 ML VIAL ONE (13:52)
[2018-01-18] MEDS ORDERED: PROPOFOL 200 MG/20 ML VIAL IV ONE (15:45)
[2018-01-18] MEDS ORDERED: ETOMIDATE 40 MG/20 ML VIAL IV ONE (15:46)
[2018-01-18] MEDS ORDERED: MIDAZOLAM 2 MG/2 ML VIAL ONE (15:46)
[2018-01-18] MEDS ORDERED: fentaNYL 100 MCG/2 ML VIAL ONE (15:46)
[2018-01-18] MEDS: GLIMEPIRIDE 4 MG TABLET PO SCH (17:36)
[2018-01-18] MEDS: ATORVASTATIN 40 MG TABLET PO SCH (21:28)
[2018-01-18] MEDS: ONDANSETRON 4 MG/2 ML VIAL IV PRN (23:32)
[2018-01-19] MEDS ORDERED: ACETAMINOPHEN 500 MG TABLET PO ONE (02:35)
[2018-01-19] MEDS ORDERED: LORazepam 2 MG/1 ML VIAL IV ONE (02:35)
[2018-01-19] MEDS ORDERED: NALOXONE 0.4 MG/ML VIAL IV ONE (04:39)
[2018-01-19] MEDS: NITROGLYCERIN SL 0.4 MG TABLET SL PRN ×2 (05:10→05:15)
[2018-01-19] MEDS ORDERED: ASPIRIN 325 MG TABLET ONE (05:21)
[2018-01-19] MEDS ORDERED: ASPIRIN CHEW 81 MG TABLET PO ONE (05:21)
[2018-01-19] MEDS ORDERED: MEPERIDINE 50 MG/1 ML VIAL ONE ×2 (05:22→05:49)
[2018-01-19] MEDS ORDERED: METOPROLOL TARTRATE 5 MG/5 ML VIAL IV ONE ×2 (05:36→05:53)
[2018-01-19 05:45] LABS: Hematocrit 27.1 VOL% (42.0-52.0); Lymphocytes # 0.4 10*3/uL (1.4-4.0); Lymphocytes % 42.9 % (21.2-54.2); Mean Corpuscular HGB Conc 32.8 GM/DL (32-36); Mean Corpuscular Hemoglobin 35 PG (27-34); Mean Corpuscular Volume 106.7 FL (87-102); Mean Platelet Volume 12.1 FL (9.6-12.0); Monocytes % 3.1 % (1.7-12.7); NRBC # 0.13 10*3/uL; Neutrophils # 0.5 10*3/uL (1.4-7.4); Platelet Count 75 T/CUMM (130-400); Red Cell Distribution Width 24.7 % (9.3-17.3)
[2018-01-19] MEDS: NITROGLYCERIN 2% OINT 1 INCH/GM PACK TOP SCH ×4 (05:51→23:20)
[2018-01-19] MEDS ORDERED: MEPERIDINE 25 MG/1 ML VIAL IV ONE (05:53)
[2018-01-19 05:54] LABS: INR 1.3; Partial Thromboplastin Time 29.2 SECS (0-40)
[2018-01-19] MEDS ORDERED: FUROSEMIDE 40 MG/4 ML VIAL IV ONE (05:57)
[2018-01-19] MEDS ORDERED: FUROSEMIDE 20 MG/2 ML VIAL ONE (05:58)
[2018-01-19] MEDS ORDERED: FUROSEMIDE 40 MG/4 ML VIAL ONE (05:58)
[2018-01-19 06:01] LABS: Blood Urea Nitrogen 18 MG/DL (7-18); Calcium 7.6 MG/DL (8.5-10.1); Glucose 255 MG/DL (74-106); Osmolality,Calculated 280.1 MOS/KG (273-304); Potassium 4.5 MMOL/L (3.5-5.1); Sodium 135 MMOL/L (136-145)
[2018-01-19 06:02] LABS: Troponin I 0.061 NG/ML (0.00-0.045)
[2018-01-19 06:03] LABS: Hemoglobin 8.9 GM/DL (14.0-18.0); Red Blood Count 2.54 MC/CUMM (3.8-5.5)
[2018-01-19] MEDS ORDERED: ALBUTEROL/IPRATROPIUM 3 ML NEB RESP TX ONE (06:17)
[2018-01-19 06:31] LABS: Band Neutrophils 1 % (0-10); Hypochromasia 1+; Lymphocytes 46 % (20-55); Nucleated Red Blood Cells 13 (0-5); Platelet Estimate Decreased; Segmented Neutrophils 46 % (50-85); Total Cells Counted 100
[2018-01-19 06:32] LABS: Atypical Lymphocytes Few; Macrocytosis 1+; Polychromasia Slight
[2018-01-19] MEDS ORDERED: MEPERIDINE 50 MG/1 ML VIAL IV ONE (06:45)
[2018-01-19 07:15] LABS: Apearance,Urine CLEAR (Clear); Bilirubin,Urine Negative (Negative); Blood, Urine Negative (Negative); Glucose,Urine (UA) Negative (Negative); Hyaline Casts,Urine 1 /LPF (0-3); Ketones,Urine Negative (Negative); Mucus,Urine Occasional /LPF (Occasional); Nitrite,Urine Negative (Negative); Protein,Urine Negative; Urine Color Yellow (Yellow); Urine Specific Gravity 1.005 (1.001-1.035); Urine Urobilinogen < 2.0 EU/DL (0.2-1.0); WBC,Urine <1 /HPF (0-6)
[2018-01-19] MEDS: DEXTROSE 5% NACL 0.9% 1,000 ML IV SCH ×2 (07:30→15:41)
[2018-01-19] MEDS ORDERED: NITROGLYCERIN 0.2 MG/HR PATCH TRANSDERM SCH (09:00)
[2018-01-19 09:33] LABS: Troponin I 0.072 NG/ML (0.00-0.045)
[2018-01-19] MEDS: oxyCODONE IR 5 MG TABLET PO PRN (09:48)
[2018-01-19] MEDS: FUROSEMIDE 40 MG TABLET PO SCH (11:18)
[2018-01-19] MEDS: FENOFIBRATE 145 MG TABLET PO SCH (11:43)
[2018-01-19] MEDS: CITALOPRAM 20 MG TABLET PO SCH (11:44)
[2018-01-19] MEDS: ISOSORBIDE MONONITRATE 30 MG TABLET PO SCH (11:44)
[2018-01-19] MEDS: RANOLAZINE 500 MG TABLET PO SCH ×2 (11:44→21:28)
[2018-01-19] MEDS: IRBESARTAN 150 MG TABLET PO SCH (11:44)
[2018-01-19] MEDS: CALCIUM (CARBONATE)/VITAMIN D 500 MG-200 UNIT TABLET PO SCH (11:44)
[2018-01-19] MEDS: PRASUGREL 10 MG TABLET PO SCH (11:45)
[2018-01-19] MEDS: PANTOPRAZOLE 40 MG TABLET PO SCH (11:45)
[2018-01-19] MEDS: ACETAMINOPHEN 325 MG TABLET PO PRN (11:45)
[2018-01-19] MEDS: DOCUSATE SODIUM 100 MG CAPSULE PO SCH ×2 (11:46→21:27)
[2018-01-19] MEDS: ASPIRIN EC 81 MG TABLET PO SCH (11:46)
[2018-01-19] MEDS: CARVEDILOL 6.25 MG TABLET PO SCH ×2 (11:46→17:07)
[2018-01-19] MEDS: DIGOXIN 0.125 MG TABLET PO SCH (11:46)
[2018-01-19] MEDS: LORATADINE 10 MG TABLET PO SCH (11:46)
[2018-01-19] MEDS: INSULIN GLARGINE 100 UNIT/ML SUBCUT SCH (11:46)
[2018-01-19] MEDS: GLIMEPIRIDE 4 MG TABLET PO SCH ×2 (11:46→17:07)
[2018-01-19] MEDS: POLYETHYLENE GLYCOL POWDER 17 GM PACK PO SCH (11:54)
[2018-01-19] MEDS: FLUTICASONE 50 MCG NASAL SPRAY 16 GM BOTTLE BOTH NARES SCH (12:00)
[2018-01-19 13:27] LABS: Troponin I 0.058 NG/ML (0.00-0.045)
[2018-01-19] MEDS: oxyCODONE/ACETAMINOPHEN 5-325 MG TABLET PO PRN ×2 (15:40→21:28)
[2018-01-19] MEDS: ATORVASTATIN 40 MG TABLET PO SCH (21:27)
[2018-01-20] MEDS: DEXTROSE 5% NACL 0.9% 1,000 ML IV SCH (01:54)
[2018-01-20] MEDS: NITROGLYCERIN 2% OINT 1 INCH/GM PACK TOP SCH ×3 (05:17→18:32)
[2018-01-20 05:36] LABS: Hematocrit 24.3 VOL% (42.0-52.0); Hemoglobin 8.1 GM/DL (14.0-18.0); Lymphocytes # 0.6 10*3/uL (1.4-4.0); Lymphocytes % 60.8 % (21.2-54.2); Mean Corpuscular HGB Conc 33.3 GM/DL (32-36); Mean Corpuscular Hemoglobin 35 PG (27-34); Mean Corpuscular Volume 104.7 FL (87-102); Mean Platelet Volume 12.4 FL (9.6-12.0); NRBC # 0.06 10*3/uL; Neutrophils # 0.4 10*3/uL (1.4-7.4); Neutrophils % 35.2 % (38.7-73.9); Platelet Count 72 T/CUMM (130-400); Red Blood Count 2.32 MC/CUMM (3.8-5.5); Red Cell Distribution Width 24.2 % (9.3-17.3)
[2018-01-20 05:54] LABS: Calcium 7.6 MG/DL (8.5-10.1); Osmolality,Calculated 281.7 MOS/KG (273-304); Potassium 3.9 MMOL/L (3.5-5.1)
[2018-01-20 06:10] LABS: Band Neutrophils 2 % (0-10); Eosinophils 1 % (0-10); Hypochromasia 1+; Lymphocytes 69 % (20-55); Nucleated Red Blood Cells 5 (0-5); Ovalocytes Slight; Platelet Estimate Decreased; Segmented Neutrophils 27 % (50-85); Total Cells Counted 100
[2018-01-20 06:11] LABS: Atypical Lymphocytes Few; Macrocytosis 1+
[2018-01-20] MEDS ORDERED: FUROSEMIDE 40 MG/4 ML VIAL IV ONE (07:55)
[2018-01-20] MEDS: ALBUTEROL 2.5 MG/3 ML NEB RESP TX PRN ×2 (09:04→16:45)
[2018-01-20] MEDS: INSULIN GLARGINE 100 UNIT/ML SUBCUT SCH (09:35)
[2018-01-20] MEDS: PIPERACILLIN/TAZOBACTAM 3,375 MG in SODIUM CHLORIDE 0.9% 100 ML IV SCH ×2 (09:40→17:43)
[2018-01-20] MEDS: POLYETHYLENE GLYCOL POWDER 17 GM PACK PO SCH (09:45)
[2018-01-20] MEDS: ASPIRIN EC 81 MG TABLET PO SCH (09:46)
[2018-01-20] MEDS: DOCUSATE SODIUM 100 MG CAPSULE PO SCH ×2 (09:46→20:38)
[2018-01-20] MEDS: GLIMEPIRIDE 4 MG TABLET PO SCH ×2 (09:46→17:41)
[2018-01-20] MEDS: RANOLAZINE 500 MG TABLET PO SCH ×2 (09:46→20:38)
[2018-01-20] MEDS: PRASUGREL 10 MG TABLET PO SCH (09:46)
[2018-01-20] MEDS: ISOSORBIDE MONONITRATE 30 MG TABLET PO SCH (09:47)
[2018-01-20] MEDS: CITALOPRAM 20 MG TABLET PO SCH (09:47)
[2018-01-20] MEDS: PANTOPRAZOLE 40 MG TABLET PO SCH (09:47)
[2018-01-20] MEDS: LORATADINE 10 MG TABLET PO SCH (09:47)
[2018-01-20] MEDS: FLUTICASONE 50 MCG NASAL SPRAY 16 GM BOTTLE BOTH NARES SCH (09:47)
[2018-01-20] MEDS: DIGOXIN 0.125 MG TABLET PO SCH (09:47)
[2018-01-20] MEDS: CALCIUM (CARBONATE)/VITAMIN D 500 MG-200 UNIT TABLET PO SCH (09:47)
[2018-01-20] MEDS: FENOFIBRATE 145 MG TABLET PO SCH (09:47)
[2018-01-20] MEDS: IRBESARTAN 150 MG TABLET PO SCH (09:48)
[2018-01-20] MEDS: CARVEDILOL 6.25 MG TABLET PO SCH ×2 (09:56→17:41)
[2018-01-20] MEDS: FUROSEMIDE 40 MG TABLET PO SCH (10:25)
[2018-01-20] MEDS: oxyCODONE/ACETAMINOPHEN 5-325 MG TABLET PO PRN (15:28)
[2018-01-20] MEDS: ATORVASTATIN 40 MG TABLET PO SCH (20:38)
[2018-01-21] MEDS: DEXTROSE 5% NACL 0.9% 1,000 ML IV SCH (00:01)
[2018-01-21] MEDS: NITROGLYCERIN 2% OINT 1 INCH/GM PACK TOP SCH ×4 (00:02→17:05)
[2018-01-21] MEDS: PIPERACILLIN/TAZOBACTAM 3,375 MG in SODIUM CHLORIDE 0.9% 100 ML IV SCH ×3 (00:56→22:18)
[2018-01-21 05:19] LABS: Eosinophils % 1.2 % (0.00-10.9); Hematocrit 24.7 VOL% (42.0-52.0); Immature Granulocytes % 7.2 %; Immature Granulocytes Absolute 0.06 #; Lymphocytes # 0.5 10*3/uL (1.4-4.0); Mean Corpuscular HGB Conc 32.4 GM/DL (32-36); Mean Corpuscular Hemoglobin 34 PG (27-34); Mean Corpuscular Volume 105.6 FL (87-102); Mean Platelet Volume 12.2 FL (9.6-12.0); Monocytes % 1.2 % (1.7-12.7); NRBC # 0.08 10*3/uL; Neutrophils # 0.3 10*3/uL (1.4-7.4); Neutrophils % 31.4 % (38.7-73.9); Platelet Count 69 T/CUMM (130-400); Red Blood Count 2.34 MC/CUMM (3.8-5.5); Red Cell Distribution Width 24.1 % (9.3-17.3)
[2018-01-21 05:29] LABS: Calcium 7.6 MG/DL (8.5-10.1); Osmolality,Calculated 279.7 MOS/KG (273-304); Potassium 3.8 MMOL/L (3.5-5.1)
[2018-01-21 05:35] LABS: White Blood Count 0.8 T/CUMM (4-12)
[2018-01-21 05:43] LABS: Band Neutrophils 7 % (0-10); Lymphocytes 73 % (20-55); Platelet Estimate Decreased; Segmented Neutrophils 13 % (50-85); Total Cells Counted 100
[2018-01-21 05:44] LABS: Atypical Lymphocytes Few; Hypochromasia 1+; Macrocytosis Slight; Ovalocytes Slight
[2018-01-21] MEDS: ALBUTEROL 2.5 MG/3 ML NEB RESP TX PRN ×2 (07:55→22:48)
[2018-01-21] MEDS ORDERED: SODIUM CHLORIDE 0.9% 1,000 ML IV PRN (08:19)
[2018-01-21] MEDS ORDERED: FUROSEMIDE 40 MG/4 ML VIAL IV ONE ×2 (08:22→08:24)
[2018-01-21] MEDS: DIGOXIN 0.125 MG TABLET PO SCH (08:33)
[2018-01-21] MEDS: CITALOPRAM 20 MG TABLET PO SCH (08:33)
[2018-01-21] MEDS: PANTOPRAZOLE 40 MG TABLET PO SCH (08:33)
[2018-01-21] MEDS: ISOSORBIDE MONONITRATE 30 MG TABLET PO SCH (08:34)
[2018-01-21] MEDS: CALCIUM (CARBONATE)/VITAMIN D 500 MG-200 UNIT TABLET PO SCH (08:34)
[2018-01-21] MEDS: FENOFIBRATE 145 MG TABLET PO SCH (08:34)
[2018-01-21] MEDS: RANOLAZINE 500 MG TABLET PO SCH ×2 (08:34→21:50)
[2018-01-21] MEDS: CARVEDILOL 6.25 MG TABLET PO SCH ×2 (08:35→21:50)
[2018-01-21] MEDS: LORATADINE 10 MG TABLET PO SCH (08:35)
[2018-01-21] MEDS: GLIMEPIRIDE 4 MG TABLET PO SCH ×2 (08:35→17:01)
[2018-01-21] MEDS: IRBESARTAN 150 MG TABLET PO SCH (08:35)
[2018-01-21] MEDS: POLYETHYLENE GLYCOL POWDER 17 GM PACK PO SCH (08:36)
[2018-01-21] MEDS: FUROSEMIDE 40 MG TABLET PO SCH (08:36)
[2018-01-21] MEDS: FLUTICASONE 50 MCG NASAL SPRAY 16 GM BOTTLE BOTH NARES SCH (08:36)
[2018-01-21] MEDS: DOCUSATE SODIUM 100 MG CAPSULE PO SCH ×2 (08:57→21:49)
[2018-01-21] MEDS: PRASUGREL 10 MG TABLET PO SCH (08:57)
[2018-01-21] MEDS: ASPIRIN EC 81 MG TABLET PO SCH (08:58)
[2018-01-21] MEDS: oxyCODONE IR 5 MG TABLET PO PRN ×2 (08:58→21:49)
[2018-01-21] MEDS: INSULIN GLARGINE 100 UNIT/ML SUBCUT SCH (08:58)
[2018-01-21] MEDS: FILGRASTIM-SNDZ 300 MCG/0.5 ML SYRINGE SUBCUT SCH (08:59)
[2018-01-21] MEDS: ATORVASTATIN 40 MG TABLET PO SCH (21:50)
[2018-01-22] MEDS: NITROGLYCERIN 2% OINT 1 INCH/GM PACK TOP SCH ×4 (00:36→19:30)
[2018-01-22] MEDS: PIPERACILLIN/TAZOBACTAM 3,375 MG in SODIUM CHLORIDE 0.9% 100 ML IV SCH (00:37)
[2018-01-22 06:33] LABS: Osmolality,Calculated 274.8 MOS/KG (273-304); Potassium 3.9 MMOL/L (3.5-5.1)
[2018-01-22 08:16] LABS: Basophils % 0.6 % (0.0-0.8); Eosinophils % 1.8 % (0.00-10.9); Hematocrit 30.2 VOL% (42.0-52.0); Hemoglobin 10.1 GM/DL (14.0-18.0); Lymphocytes # 0.8 10*3/uL (1.4-4.0); Lymphocytes % 49.4 % (21.2-54.2); Mean Corpuscular HGB Conc 33.4 GM/DL (32-36); Mean Corpuscular Hemoglobin 34 PG (27-34); Mean Corpuscular Volume 100.7 FL (87-102); Mean Platelet Volume 12.5 FL (9.6-12.0); Monocytes % 0.6 % (1.7-12.7); NRBC # 0.09 10*3/uL; Neutrophils # 0.8 10*3/uL (1.4-7.4); Neutrophils % 47.6 % (38.7-73.9); Platelet Count 73 T/CUMM (130-400); Red Cell Distribution Width 26.2 % (9.3-17.3); White Blood Count 1.7 T/CUMM (4-12)
[2018-01-22 08:55] LABS: Band Neutrophils 25 % (0-10); Eosinophils 2 % (0-10); Lymphocytes 44 % (20-55); Nucleated Red Blood Cells 5 (0-5); Platelet Estimate Decreased; Segmented Neutrophils 27 % (50-85); Total Cells Counted 100
[2018-01-22 08:56] LABS: Anisocytosis 1+; Macrocytosis 1+; Poikilocytosis Slight
[2018-01-22] MEDS: FILGRASTIM-SNDZ 300 MCG/0.5 ML SYRINGE SUBCUT SCH (09:46)
[2018-01-22] MEDS: DOCUSATE SODIUM 100 MG CAPSULE PO SCH ×2 (09:46→20:09)
[2018-01-22] MEDS: CITALOPRAM 20 MG TABLET PO SCH (09:46)
[2018-01-22] MEDS: DIGOXIN 0.125 MG TABLET PO SCH (09:46)
[2018-01-22] MEDS: PANTOPRAZOLE 40 MG TABLET PO SCH (09:49)
[2018-01-22] MEDS: RANOLAZINE 500 MG TABLET PO SCH ×2 (09:49→20:09)
[2018-01-22] MEDS: IRBESARTAN 150 MG TABLET PO SCH (09:49)
[2018-01-22] MEDS: ISOSORBIDE MONONITRATE 30 MG TABLET PO SCH (09:50)
[2018-01-22] MEDS: CARVEDILOL 6.25 MG TABLET PO SCH ×2 (09:50→17:00)
[2018-01-22] MEDS: GLIMEPIRIDE 4 MG TABLET PO SCH ×2 (09:50→17:42)
[2018-01-22] MEDS: CALCIUM (CARBONATE)/VITAMIN D 500 MG-200 UNIT TABLET PO SCH (09:50)
[2018-01-22] MEDS: LORATADINE 10 MG TABLET PO SCH (09:50)
[2018-01-22] MEDS: ASPIRIN EC 81 MG TABLET PO SCH (09:50)
[2018-01-22] MEDS: POLYETHYLENE GLYCOL POWDER 17 GM PACK PO SCH (09:50)
[2018-01-22] MEDS: FENOFIBRATE 145 MG TABLET PO SCH (09:50)
[2018-01-22] MEDS: oxyCODONE/ACETAMINOPHEN 5-325 MG TABLET PO PRN ×2 (09:53→20:09)
[2018-01-22] MEDS: FUROSEMIDE 40 MG TABLET PO SCH ×2 (09:54→17:00)
[2018-01-22] MEDS: FLUTICASONE 50 MCG NASAL SPRAY 16 GM BOTTLE BOTH NARES SCH (10:01)
[2018-01-22] MEDS: PRASUGREL 10 MG TABLET PO SCH (10:01)
[2018-01-22] MEDS: INSULIN GLARGINE 100 UNIT/ML SUBCUT SCH (14:32)
[2018-01-22] MEDS: ATORVASTATIN 40 MG TABLET PO SCH (20:09)
[2018-01-23] MEDS: NITROGLYCERIN 2% OINT 1 INCH/GM PACK TOP SCH ×4 (00:09→17:19)
[2018-01-23] MEDS: oxyCODONE/ACETAMINOPHEN 5-325 MG TABLET PO PRN ×3 (03:30→18:06)
[2018-01-23] MEDS: ALBUTEROL 2.5 MG/3 ML NEB RESP TX PRN (04:07)
[2018-01-23 04:49] LABS: Basophils % 0.8 % (0.0-0.8); Eosinophils % 1.5 % (0.00-10.9); Hematocrit 29.6 VOL% (42.0-52.0); Hemoglobin 9.8 GM/DL (14.0-18.0); Immature Granulocytes % 4.5 %; Immature Granulocytes Absolute 0.06 #; Lymphocytes # 0.7 10*3/uL (1.4-4.0); Lymphocytes % 51.9 % (21.2-54.2); Mean Corpuscular HGB Conc 33.1 GM/DL (32-36); Mean Corpuscular Hemoglobin 33 PG (27-34); Mean Platelet Volume 12.1 FL (9.6-12.0); Monocytes % 0.8 % (1.7-12.7); NRBC # 0.03 10*3/uL; Neutrophils # 0.5 10*3/uL (1.4-7.4); Neutrophils % 40.5 % (38.7-73.9); Red Blood Count 2.93 MC/CUMM (3.8-5.5); Red Cell Distribution Width 25.1 % (9.3-17.3); White Blood Count 1.3 T/CUMM (4-12)
[2018-01-23 04:53] LABS: Platelet Count 73 T/CUMM (130-400)
[2018-01-23 05:00] LABS: Calcium 7.8 MG/DL (8.5-10.1); Osmolality,Calculated 278.7 MOS/KG (273-304); Potassium 3.9 MMOL/L (3.5-5.1)
[2018-01-23 05:35] LABS: Band Neutrophils 1 % (0-10); Lymphocytes 57 % (20-55); Nucleated Red Blood Cells 1 (0-5); Segmented Neutrophils 39 % (50-85); Total Cells Counted 100
[2018-01-23 05:36] LABS: Atypical Lymphocytes Few; Hypochromasia 1+; Macrocytosis Slight; Ovalocytes Slight; Platelet Estimate Decreased
[2018-01-23] MEDS: INSULIN GLARGINE 100 UNIT/ML SUBCUT SCH (09:26)
[2018-01-23] MEDS: PANTOPRAZOLE 40 MG TABLET PO SCH (09:27)
[2018-01-23] MEDS: FENOFIBRATE 145 MG TABLET PO SCH (09:27)
[2018-01-23] MEDS: CARVEDILOL 6.25 MG TABLET PO SCH ×2 (09:27→16:50)
[2018-01-23] MEDS: CALCIUM (CARBONATE)/VITAMIN D 500 MG-200 UNIT TABLET PO SCH (09:27)
[2018-01-23] MEDS: ASPIRIN EC 81 MG TABLET PO SCH (09:27)
[2018-01-23] MEDS: FUROSEMIDE 40 MG TABLET PO SCH ×2 (09:28→16:48)
[2018-01-23] MEDS: DOCUSATE SODIUM 100 MG CAPSULE PO SCH ×2 (09:28→20:49)
[2018-01-23] MEDS: IRBESARTAN 150 MG TABLET PO SCH (09:28)
[2018-01-23] MEDS: GLIMEPIRIDE 4 MG TABLET PO SCH ×2 (09:28→16:48)
[2018-01-23] MEDS: CITALOPRAM 20 MG TABLET PO SCH (09:28)
[2018-01-23] MEDS: LORATADINE 10 MG TABLET PO SCH (09:29)
[2018-01-23] MEDS: ISOSORBIDE MONONITRATE 30 MG TABLET PO SCH (09:29)
[2018-01-23] MEDS: POLYETHYLENE GLYCOL POWDER 17 GM PACK PO SCH (09:29)
[2018-01-23] MEDS: RANOLAZINE 500 MG TABLET PO SCH ×2 (09:29→20:49)
[2018-01-23] MEDS: DIGOXIN 0.125 MG TABLET PO SCH (09:29)
[2018-01-23] MEDS: PRASUGREL 10 MG TABLET PO SCH (09:29)
[2018-01-23] MEDS: FLUTICASONE 50 MCG NASAL SPRAY 16 GM BOTTLE BOTH NARES SCH (09:30)
[2018-01-23] MEDS: FILGRASTIM-SNDZ 300 MCG/0.5 ML SYRINGE SUBCUT SCH (09:30)
[2018-01-23] MEDS: ATORVASTATIN 40 MG TABLET PO SCH (20:49)
[2018-01-24] MEDS: NITROGLYCERIN 2% OINT 1 INCH/GM PACK TOP SCH ×5 (00:24→23:25)
[2018-01-24] MEDS: oxyCODONE/ACETAMINOPHEN 5-325 MG TABLET PO PRN ×3 (00:30→18:04)
[2018-01-24] MEDS: ACETAMINOPHEN 325 MG TABLET PO PRN ×2 (04:08→20:39)
[2018-01-24 05:41] LABS: Basophils % 0.8 % (0.0-0.8); Eosinophils % 1.6 % (0.00-10.9); Hematocrit 30.2 VOL% (42.0-52.0); Hemoglobin 9.7 GM/DL (14.0-18.0); Immature Granulocytes % 0.8 %; Immature Granulocytes Absolute 0.01 #; Lymphocytes # 0.7 10*3/uL (1.4-4.0); Lymphocytes % 58.2 % (21.2-54.2); Mean Corpuscular HGB Conc 32.1 GM/DL (32-36); Mean Corpuscular Hemoglobin 33 PG (27-34); Mean Corpuscular Volume 102.4 FL (87-102); Mean Platelet Volume 12.4 FL (9.6-12.0); Monocytes % 0.8 % (1.7-12.7); Neutrophils # 0.5 10*3/uL (1.4-7.4); Neutrophils % 37.8 % (38.7-73.9); Platelet Count 77 T/CUMM (130-400); Red Blood Count 2.95 MC/CUMM (3.8-5.5); Red Cell Distribution Width 24.4 % (9.3-17.3); White Blood Count 1.2 T/CUMM (4-12)
[2018-01-24 06:05] LABS: Calcium 8.6 MG/DL (8.5-10.1); Osmolality,Calculated 281.5 MOS/KG (273-304)
[2018-01-24 06:13] LABS: Band Neutrophils 2 % (0-10); Eosinophils 1 % (0-10); Hypochromasia 1+; Lymphocytes 61 % (20-55); Nucleated Red Blood Cells 3 (0-5); Platelet Estimate Decreased; Segmented Neutrophils 32 % (50-85); Total Cells Counted 100
[2018-01-24 06:14] LABS: Atypical Lymphocytes Few; Macrocytosis Slight
[2018-01-24] MEDS: INSULIN GLARGINE 100 UNIT/ML SUBCUT SCH (08:30)
[2018-01-24] MEDS: FUROSEMIDE 40 MG TABLET PO SCH ×2 (08:37→18:00)
[2018-01-24] MEDS: DIGOXIN 0.125 MG TABLET PO SCH (08:38)
[2018-01-24] MEDS: PANTOPRAZOLE 40 MG TABLET PO SCH (08:38)
[2018-01-24] MEDS: CARVEDILOL 6.25 MG TABLET PO SCH ×2 (08:39→18:00)
[2018-01-24] MEDS: CITALOPRAM 20 MG TABLET PO SCH (08:39)
[2018-01-24] MEDS: ASPIRIN EC 81 MG TABLET PO SCH (08:39)
[2018-01-24] MEDS: LORATADINE 10 MG TABLET PO SCH (08:40)
[2018-01-24] MEDS: IRBESARTAN 150 MG TABLET PO SCH (08:41)
[2018-01-24] MEDS: CALCIUM (CARBONATE)/VITAMIN D 500 MG-200 UNIT TABLET PO SCH (08:42)
[2018-01-24] MEDS: DOCUSATE SODIUM 100 MG CAPSULE PO SCH ×2 (08:42→20:15)
[2018-01-24] MEDS: RANOLAZINE 500 MG TABLET PO SCH ×2 (08:42→20:15)
[2018-01-24] MEDS: ISOSORBIDE MONONITRATE 30 MG TABLET PO SCH (08:43)
[2018-01-24] MEDS: FENOFIBRATE 145 MG TABLET PO SCH (08:43)
[2018-01-24] MEDS: FLUTICASONE 50 MCG NASAL SPRAY 16 GM BOTTLE BOTH NARES SCH (08:44)
[2018-01-24] MEDS: FILGRASTIM-SNDZ 300 MCG/0.5 ML SYRINGE SUBCUT SCH (08:45)
[2018-01-24] MEDS: POLYETHYLENE GLYCOL POWDER 17 GM PACK PO SCH (08:46)
[2018-01-24] MEDS: PRASUGREL 10 MG TABLET PO SCH (10:21)
[2018-01-24] MEDS: GLIMEPIRIDE 4 MG TABLET PO SCH ×2 (12:30→18:00)
[2018-01-24] MEDS: ATORVASTATIN 40 MG TABLET PO SCH (20:15)
[2018-01-25] MEDS: oxyCODONE/ACETAMINOPHEN 5-325 MG TABLET PO PRN ×2 (00:13→06:45)
[2018-01-25] MEDS: NITROGLYCERIN 2% OINT 1 INCH/GM PACK TOP SCH (05:20)
[2018-01-25 05:56] LABS: Basophils % 0.7 % (0.0-0.8); Eosinophils % 1.5 % (0.00-10.9); Hematocrit 31.7 VOL% (42.0-52.0); Hemoglobin 10.6 GM/DL (14.0-18.0); Lymphocytes # 0.8 10*3/uL (1.4-4.0); Lymphocytes % 61.2 % (21.2-54.2); Mean Corpuscular HGB Conc 33.4 GM/DL (32-36); Mean Corpuscular Hemoglobin 34 PG (27-34); Mean Corpuscular Volume 102.3 FL (87-102); Mean Platelet Volume 11.9 FL (9.6-12.0); Monocytes % 0.7 % (1.7-12.7); Neutrophils # 0.5 10*3/uL (1.4-7.4); Neutrophils % 35.9 % (38.7-73.9); Platelet Count 86 T/CUMM (130-400); Red Cell Distribution Width 23.8 % (9.3-17.3); White Blood Count 1.3 T/CUMM (4-12)
[2018-01-25 06:21] LABS: Band Neutrophils 20 % (0-10); Eosinophils 1 % (0-10); Lymphocytes 57 % (20-55); Segmented Neutrophils 21 % (50-85); Total Cells Counted 99
[2018-01-25 06:22] LABS: Anisocytosis 2+; Macrocytosis 2+; Platelet Estimate Decreased
[2018-01-25 06:30] LABS: Calcium 8.9 MG/DL (8.5-10.1); Potassium 4.1 MMOL/L (3.5-5.1)
[2018-01-25 09:51] VITALS: BP 121/73
[2018-01-25] MEDS: DIGOXIN 0.125 MG TABLET PO SCH (10:03)
[2018-01-25] MEDS: IRBESARTAN 150 MG TABLET PO SCH (10:03)
[2018-01-25] MEDS: GLIMEPIRIDE 4 MG TABLET PO SCH (10:03)
[2018-01-25] MEDS: FENOFIBRATE 145 MG TABLET PO SCH (10:04)
[2018-01-25] MEDS: DOCUSATE SODIUM 100 MG CAPSULE PO SCH (10:04)
[2018-01-25] MEDS: PANTOPRAZOLE 40 MG TABLET PO SCH (10:04)
[2018-01-25] MEDS: CARVEDILOL 6.25 MG TABLET PO SCH (10:04)
[2018-01-25] MEDS: CITALOPRAM 20 MG TABLET PO SCH (10:04)
[2018-01-25] MEDS: PRASUGREL 10 MG TABLET PO SCH (10:04)
[2018-01-25] MEDS: RANOLAZINE 500 MG TABLET PO SCH (10:04)
[2018-01-25] MEDS: ISOSORBIDE MONONITRATE 30 MG TABLET PO SCH (10:04)
[2018-01-25] MEDS: CALCIUM (CARBONATE)/VITAMIN D 500 MG-200 UNIT TABLET PO SCH (10:04)
[2018-01-25] MEDS: LORATADINE 10 MG TABLET PO SCH (10:05)
[2018-01-25] MEDS: INSULIN GLARGINE 100 UNIT/ML SUBCUT SCH (10:05)
[2018-01-25] MEDS: FLUTICASONE 50 MCG NASAL SPRAY 16 GM BOTTLE BOTH NARES SCH (10:05)
[2018-01-25] MEDS: POLYETHYLENE GLYCOL POWDER 17 GM PACK PO SCH (10:05)
[2018-01-25] MEDS: FUROSEMIDE 40 MG TABLET PO SCH (10:05)
[2018-01-25] MEDS: ASPIRIN EC 81 MG TABLET PO SCH (10:05)
== END 2018-01-25 11:50 | disposition home health service (06) | DRG 477 ==
LOC: N.ED 16:43 → N.EDINP 20:02 → N.4E 21:01 → N.CC 01-19 05:51 → N.4E 01-20 11:39
PROVIDERS: ADMIT Family Medicine; ATTEND Internal Medicine

== ENCOUNTER 2020-02-26 18:35 | Inpatient (IN) ==
[2020-02-26] MEDS ORDERED: FUROSEMIDE 40 MG/4 ML VIAL IV STA (19:09)
[2020-02-26 19:27] LABS: Basophils % 0.4 % (0.0-0.8); Eosinophils % 0.8 % (0.00-10.9); Hematocrit 31.7 VOL% (42.0-52.0); Hemoglobin 10.8 GM/DL (14.0-18.0); Immature Granulocytes % 0.4 %; Immature Granulocytes Absolute 0.01 #; Lymphocytes # 0.7 10*3/uL (1.4-4.0); Lymphocytes % 26.6 % (21.2-54.2); Mean Corpuscular HGB Conc 34.1 GM/DL (32-36); Mean Corpuscular Volume 119.2 FL (87-102); Monocytes % 3.5 % (1.7-12.7); NRBC # 0.05 10*3/uL; Neutrophils % 68.3 % (38.7-73.9); Platelet Count 218 T/CUMM (130-400); Red Blood Count 2.66 MC/CUMM (3.8-5.5); Red Cell Distribution Width 21.1 % (9.3-17.3); White Blood Count 2.6 T/CUMM (4-12)
[2020-02-26 19:53] LABS: Albumin 3.6 G/DL (3.4-5.0); Bilirubin,Total 0.9 MG/DL (0.2-1.0); Calcium 8.5 MG/DL (8.5-10.1); Osmolality,Calculated 267.7 MOS/KG (273-304)
[2020-02-26 19:59] LABS: INR 1.3; PT Patient Result 13.5 SECS (9.8-11.9)
[2020-02-26] MEDS ORDERED: ACETAMINOPHEN 325 MG TABLET PO PRN (20:25)
[2020-02-26] MEDS ORDERED: ONDANSETRON 4 MG/2 ML VIAL IV PRN (20:25)
[2020-02-26 20:36] LABS: Anisocytosis 2+; Band Neutrophils 1 % (0-10); Eosinophils 2 % (0-10); Hypochromasia 2+; Lymphocytes 26 % (20-55); Macrocytosis 3+; Nucleated Red Blood Cells 4 (0-5); Segmented Neutrophils 69 % (50-85); Stomatocytes 2+; Total Cells Counted 100
[2020-02-26 20:37] LABS: Platelet Estimate Normal; Poikilocytosis 2+; Polychromasia 1+; Reactive Lymphocytes 2+
[2020-02-26] MEDS ORDERED: ALBUTEROL/IPRATROPIUM 3 ML NEB RESP TX STA (20:40)
[2020-02-26] MEDS ORDERED: FUROSEMIDE 40 MG/4 ML VIAL IV SCH (21:00)
[2020-02-26] MEDS ORDERED: oxyCODONE/ACETAMINOPHEN 5-325 MG TABLET PO PRN (21:30)
[2020-02-26] MEDS ORDERED: DEXTROSE 50% 25 GM/50 ML VIAL IV STA (22:24)
[2020-02-26] MEDS ORDERED: DEXTROSE 50% 25 GM/50 ML SYRINGE IV STA (22:25)
[2020-02-26] MEDS ORDERED: DEXTROSE 50% 25 GM/50 ML SYRINGE IV ONE (22:25)
[2020-02-27] MEDS ORDERED: GLUCAGON 1 MG VIAL IM PRN (00:28)
[2020-02-27] MEDS ORDERED: ALBUTEROL/IPRATROPIUM 3 ML NEB RESP TX PRN (00:28)
[2020-02-27] MEDS ORDERED: DEXTROSE 50% 25 GM/50 ML VIAL IV PRN (00:28)
[2020-02-27] MEDS: RANOLAZINE 500 MG TABLET PO SCH ×3 (01:33→21:16)
[2020-02-27] MEDS: carvediloL 6.25 MG TABLET PO SCH ×3 (01:34→16:35)
[2020-02-27] MEDS: traZODone 50 MG TABLET PO SCH ×2 (01:34→21:16)
[2020-02-27] MEDS: levETIRAcetam 250 MG TABLET PO SCH ×3 (01:34→21:16)
[2020-02-27 06:18] LABS: Eosinophils % 0.8 % (0.00-10.9); Hematocrit 29.3 VOL% (42.0-52.0); Hemoglobin 10.1 GM/DL (14.0-18.0); Immature Granulocytes % 0.4 %; Immature Granulocytes Absolute 0.01 #; Lymphocytes % 41.9 % (21.2-54.2); Mean Corpuscular HGB Conc 34.5 GM/DL (32-36); Mean Corpuscular Volume 116.7 FL (87-102); Mean Platelet Volume 11.2 FL (9.6-12.0); Monocytes % 2.9 % (1.7-12.7); NRBC # 0.02 10*3/uL; Platelet Count 221 T/CUMM (130-400); Red Blood Count 2.51 MC/CUMM (3.8-5.5); Red Cell Distribution Width 20.2 % (9.3-17.3); White Blood Count 2.4 T/CUMM (4-12)
[2020-02-27 06:43] LABS: Albumin 3.3 G/DL (3.4-5.0); Bilirubin,Total 1.1 MG/DL (0.2-1.0); Calcium 8.5 MG/DL (8.5-10.1); Osmolality,Calculated 265.5 MOS/KG (273-304); Total Protein 6.8 G/DL (6.4-8.3)
[2020-02-27 07:19] LABS: Band Neutrophils 5 % (0-10); Lymphocytes 43 % (20-55); Metamyelocytes 3 %; Myelocytes 1 %; Nucleated Red Blood Cells 2 (0-5); Platelet Estimate Normal; Segmented Neutrophils 45 % (50-85); Total Cells Counted 100
[2020-02-27 07:20] LABS: Anisocytosis 3+; Atypical Lymphocytes Few; Giant Platelets Few; Hypochromasia 2+; Macrocytosis 2+; Microcytosis 1+; Target Cells 1+
[2020-02-27] MEDS ORDERED: INSULIN GLARGINE 100 UNIT/ML SUBCUT SCH (07:30)
[2020-02-27] MEDS ORDERED: GLIMEPIRIDE 4 MG TABLET PO SCH (08:00)
[2020-02-27] MEDS: INSULIN REGULAR 100 UNIT/ML SUBCUT SCH ×4 (09:03→21:16)
[2020-02-27] MEDS ORDERED: oxyCODONE/ACETAMINOPHEN 5-325 MG TABLET PO PRN ×3 (09:07→10:39)
[2020-02-27] MEDS ORDERED: traZODone 50 MG TABLET PO PRN (09:11)
[2020-02-27] MEDS ORDERED: NITROGLYCERIN SL 0.4 MG TABLET SL PRN (09:11)
[2020-02-27] MEDS ORDERED: ALBUTEROL 2.5 MG/3 ML NEB RESP TX PRN (09:11)
[2020-02-27] MEDS: ASPIRIN CHEW 81 MG TABLET PO SCH (10:26)
[2020-02-27] MEDS: PANTOPRAZOLE 40 MG TABLET PO SCH (10:27)
[2020-02-27] MEDS: TAMSULOSIN 0.4 MG CAPSULE PO SCH (10:27)
[2020-02-27] MEDS: CITALOPRAM 20 MG TABLET PO SCH (10:27)
[2020-02-27] MEDS: POLYETHYLENE GLYCOL POWDER 17 GM PACK PO SCH (10:29)
[2020-02-27] MEDS: FUROSEMIDE 40 MG/4 ML VIAL IV SCH ×2 (10:43→16:36)
[2020-02-27] MEDS ORDERED: DIGOXIN 0.125 MG TABLET PO SCH (13:00)
[2020-02-27] MEDS: oxyCODONE/ACETAMINOPHEN 5-325 MG TABLET PO PRN ×2 (14:10→21:20)
[2020-02-27 17:31] LABS: Troponin I 0.086 NG/ML (0.00-0.045)
[2020-02-27 20:17] LABS: Troponin I 0.085 NG/ML (0.00-0.045)
[2020-02-27] MEDS ORDERED: RANOLAZINE 500 MG TABLET PO SCH (21:00)
[2020-02-27] MEDS ORDERED: levETIRAcetam 250 MG TABLET PO SCH (21:00)
[2020-02-27] MEDS ORDERED: carvediloL 6.25 MG TABLET PO SCH (21:00)
[2020-02-27] MEDS: FLUTICASONE 50 MCG NASAL SPRAY 16 GM BOTTLE BOTH NARES SCH (21:17)
[2020-02-28] MEDS: oxyCODONE/ACETAMINOPHEN 5-325 MG TABLET PO PRN ×3 (03:06→18:03)
[2020-02-28 06:39] LABS: Basophils % 0.7 % (0.0-0.8); Eosinophils # 0.1 10*3/uL (0.0-0.87); Hematocrit 29.3 VOL% (42.0-52.0); Hemoglobin 10.1 GM/DL (14.0-18.0); Immature Granulocytes % 0.3 %; Immature Granulocytes Absolute 0.01 #; Lymphocytes # 1.4 10*3/uL (1.4-4.0); Lymphocytes % 47.3 % (21.2-54.2); Mean Corpuscular HGB Conc 34.5 GM/DL (32-36); Mean Corpuscular Volume 117.2 FL (87-102); Mean Platelet Volume 10.7 FL (9.6-12.0); Monocytes % 2.3 % (1.7-12.7); NRBC # 0.04 10*3/uL; Neutrophils % 47.4 % (38.7-73.9); Platelet Count 211 T/CUMM (130-400); Red Cell Distribution Width 20.5 % (9.3-17.3)
[2020-02-28 06:55] LABS: Osmolality,Calculated 261.2 MOS/KG (273-304)
[2020-02-28 07:14] LABS: Anisocytosis 2+; Band Neutrophils 19 % (0-10); Eosinophils 4 % (0-10); Lymphocytes 50 % (20-55); Nucleated Red Blood Cells 1 (0-5); Platelet Estimate Normal; Segmented Neutrophils 24 % (50-85); Total Cells Counted 100
[2020-02-28 07:15] LABS: Basophilic Stippling Slight; Hypochromasia 1+; Macrocytosis 2+; Polychromasia Slight
[2020-02-28] MEDS: INSULIN GLARGINE 100 UNIT/ML SUBCUT SCH (08:03)
[2020-02-28] MEDS: INSULIN REGULAR 100 UNIT/ML SUBCUT SCH ×4 (08:11→21:52)
[2020-02-28] MEDS: RANOLAZINE 500 MG TABLET PO SCH ×2 (08:54→21:49)
[2020-02-28] MEDS: PANTOPRAZOLE 40 MG TABLET PO SCH (08:54)
[2020-02-28] MEDS: POLYETHYLENE GLYCOL POWDER 17 GM PACK PO SCH (08:54)
[2020-02-28] MEDS: CALCIUM (CARBONATE)/VITAMIN D 500 MG-200 UNIT TABLET PO SCH (08:54)
[2020-02-28] MEDS: carvediloL 6.25 MG TABLET PO SCH ×2 (08:55→16:34)
[2020-02-28] MEDS: TAMSULOSIN 0.4 MG CAPSULE PO SCH (08:55)
[2020-02-28] MEDS: ATORVASTATIN 40 MG TABLET PO SCH (08:55)
[2020-02-28] MEDS: ASPIRIN CHEW 81 MG TABLET PO SCH (08:55)
[2020-02-28] MEDS: LORATADINE 10 MG TABLET PO SCH (08:55)
[2020-02-28] MEDS: FENOFIBRATE 145 MG TABLET PO SCH (08:55)
[2020-02-28] MEDS: levETIRAcetam 250 MG TABLET PO SCH ×2 (08:55→21:50)
[2020-02-28] MEDS: FUROSEMIDE 40 MG/4 ML VIAL IV SCH ×2 (08:56→16:38)
[2020-02-28] MEDS: CITALOPRAM 20 MG TABLET PO SCH (08:56)
[2020-02-28] MEDS ORDERED: ASPIRIN EC 81 MG TABLET PO SCH (09:00)
[2020-02-28] MEDS ORDERED: TAMSULOSIN 0.4 MG CAPSULE PO SCH (09:00)
[2020-02-28] MEDS ORDERED: POLYETHYLENE GLYCOL POWDER 255 GM BOTTLE PO SCH (09:00)
[2020-02-28] MEDS ORDERED: CITALOPRAM 20 MG TABLET PO SCH (09:00)
[2020-02-28] MEDS ORDERED: PANTOPRAZOLE 40 MG TABLET PO SCH (09:00)
[2020-02-28] MEDS: DIGOXIN 0.125 MG TABLET PO SCH (12:45)
[2020-02-28] MEDS: QUEtiapine 25 MG TABLET PO SCH (21:50)
[2020-02-28] MEDS: traZODone 50 MG TABLET PO SCH (21:52)
[2020-02-28] MEDS: FLUTICASONE 50 MCG NASAL SPRAY 16 GM BOTTLE BOTH NARES SCH (21:52)
[2020-02-29] MEDS: oxyCODONE/ACETAMINOPHEN 5-325 MG TABLET PO PRN ×4 (05:16→17:50)
[2020-02-29 05:26] LABS: Basophils % 0.9 % (0.0-0.8); Eosinophils % 1.8 % (0.00-10.9); Hematocrit 27.8 VOL% (42.0-52.0); Hemoglobin 9.3 GM/DL (14.0-18.0); Immature Granulocytes % 0.4 %; Immature Granulocytes Absolute 0.01 #; Lymphocytes % 44.2 % (21.2-54.2); Mean Corpuscular HGB Conc 33.5 GM/DL (32-36); Mean Corpuscular Volume 118.3 FL (87-102); Mean Platelet Volume 10.6 FL (9.6-12.0); Monocytes % 2.7 % (1.7-12.7); NRBC # 0.02 10*3/uL; Platelet Count 205 T/CUMM (130-400); Red Blood Count 2.35 MC/CUMM (3.8-5.5); Red Cell Distribution Width 20.8 % (9.3-17.3); White Blood Count 2.3 T/CUMM (4-12)
[2020-02-29 05:48] LABS: Calcium 8.5 MG/DL (8.5-10.1); Osmolality,Calculated 266.8 MOS/KG (273-304)
[2020-02-29 05:53] LABS: Risk Ratio 3.72; VLDL CHOLESTEROL 17.4 MG/DL
[2020-02-29 06:49] LABS: Hypochromasia 1+; Lymphocytes 46 % (20-55); Nucleated Red Blood Cells 2 (0-5); Platelet Estimate Adequate; Segmented Neutrophils 49 % (50-85); Total Cells Counted 100
[2020-02-29 06:50] LABS: Atypical Lymphocytes Few; Macrocytosis Slight
[2020-02-29] MEDS: FUROSEMIDE 40 MG/4 ML VIAL IV SCH ×2 (09:11→17:06)
[2020-02-29] MEDS: INSULIN REGULAR 100 UNIT/ML SUBCUT SCH ×4 (09:16→21:09)
[2020-02-29] MEDS: POLYETHYLENE GLYCOL POWDER 17 GM PACK PO SCH (09:24)
[2020-02-29] MEDS: INSULIN GLARGINE 100 UNIT/ML SUBCUT SCH (09:25)
[2020-02-29] MEDS: FENOFIBRATE 145 MG TABLET PO SCH (09:26)
[2020-02-29] MEDS: ASPIRIN CHEW 81 MG TABLET PO SCH (09:26)
[2020-02-29] MEDS: RANOLAZINE 500 MG TABLET PO SCH ×2 (09:26→21:09)
[2020-02-29] MEDS: CITALOPRAM 20 MG TABLET PO SCH (09:26)
[2020-02-29] MEDS: levETIRAcetam 250 MG TABLET PO SCH ×2 (09:26→21:09)
[2020-02-29] MEDS: CALCIUM (CARBONATE)/VITAMIN D 500 MG-200 UNIT TABLET PO SCH (09:26)
[2020-02-29] MEDS: PANTOPRAZOLE 40 MG TABLET PO SCH (09:27)
[2020-02-29] MEDS: TAMSULOSIN 0.4 MG CAPSULE PO SCH (09:27)
[2020-02-29] MEDS: carvediloL 6.25 MG TABLET PO SCH ×2 (09:27→16:37)
[2020-02-29] MEDS: LORATADINE 10 MG TABLET PO SCH (09:27)
[2020-02-29] MEDS: ATORVASTATIN 40 MG TABLET PO SCH (09:27)
[2020-02-29] MEDS: DIGOXIN 0.125 MG TABLET PO SCH (12:33)
[2020-02-29] MEDS: QUEtiapine 25 MG TABLET PO SCH (21:09)
[2020-02-29] MEDS: traZODone 50 MG TABLET PO SCH (21:09)
[2020-02-29] MEDS: FLUTICASONE 50 MCG NASAL SPRAY 16 GM BOTTLE BOTH NARES SCH (21:10)
[2020-03-01 05:54] LABS: Basophils % 0.5 % (0.0-0.8); Eosinophils % 1.5 % (0.00-10.9); Hematocrit 27.4 VOL% (42.0-52.0); Hemoglobin 9.2 GM/DL (14.0-18.0); Lymphocytes # 0.9 10*3/uL (1.4-4.0); Lymphocytes % 45.4 % (21.2-54.2); Mean Corpuscular HGB Conc 33.6 GM/DL (32-36); Mean Corpuscular Volume 119.7 FL (87-102); Mean Platelet Volume 10.4 FL (9.6-12.0); Monocytes % 2.9 % (1.7-12.7); Neutrophils % 49.7 % (38.7-73.9); Platelet Count 190 T/CUMM (130-400); Red Blood Count 2.29 MC/CUMM (3.8-5.5); Red Cell Distribution Width 20.7 % (9.3-17.3); White Blood Count 2.1 T/CUMM (4-12)
[2020-03-01 06:30] LABS: Calcium 8.5 MG/DL (8.5-10.1)
[2020-03-01 06:31] LABS: Calcium 8.7 MG/DL (8.5-10.1); Osmolality,Calculated 272.1 MOS/KG (273-304)
[2020-03-01] MEDS: oxyCODONE/ACETAMINOPHEN 5-325 MG TABLET PO PRN ×3 (06:31→20:59)
[2020-03-01 07:58] LABS: Anisocytosis 2+; Band Neutrophils 16 % (0-10); Lymphocytes 46 % (20-55); Platelet Estimate Normal; Segmented Neutrophils 33 % (50-85); Total Cells Counted 100
[2020-03-01 07:59] LABS: Macrocytosis 2+; Stomatocytes Few
[2020-03-01] MEDS: INSULIN REGULAR 100 UNIT/ML SUBCUT SCH ×4 (08:12→21:29)
[2020-03-01] MEDS: INSULIN GLARGINE 100 UNIT/ML SUBCUT SCH (08:47)
[2020-03-01] MEDS: POLYETHYLENE GLYCOL POWDER 17 GM PACK PO SCH (08:49)
[2020-03-01] MEDS: FENOFIBRATE 145 MG TABLET PO SCH (08:49)
[2020-03-01] MEDS: CITALOPRAM 20 MG TABLET PO SCH (08:49)
[2020-03-01] MEDS: carvediloL 6.25 MG TABLET PO SCH ×2 (08:49→16:28)
[2020-03-01] MEDS: TAMSULOSIN 0.4 MG CAPSULE PO SCH (08:49)
[2020-03-01] MEDS: ASPIRIN CHEW 81 MG TABLET PO SCH (08:50)
[2020-03-01] MEDS: ATORVASTATIN 40 MG TABLET PO SCH (08:50)
[2020-03-01] MEDS: LORATADINE 10 MG TABLET PO SCH (08:50)
[2020-03-01] MEDS: CALCIUM (CARBONATE)/VITAMIN D 500 MG-200 UNIT TABLET PO SCH (08:50)
[2020-03-01] MEDS: PANTOPRAZOLE 40 MG TABLET PO SCH (08:50)
[2020-03-01] MEDS: levETIRAcetam 250 MG TABLET PO SCH ×2 (08:50→20:59)
[2020-03-01] MEDS: RANOLAZINE 500 MG TABLET PO SCH ×2 (08:50→20:58)
[2020-03-01] MEDS: FUROSEMIDE 40 MG/4 ML VIAL IV SCH (09:00)
[2020-03-01] MEDS: DIGOXIN 0.125 MG TABLET PO SCH (13:23)
[2020-03-01] MEDS: FUROSEMIDE 80 MG TABLET PO SCH (16:27)
[2020-03-01] MEDS: FLUTICASONE 50 MCG NASAL SPRAY 16 GM BOTTLE BOTH NARES SCH (18:40)
[2020-03-01] MEDS: QUEtiapine 25 MG TABLET PO SCH (20:58)
[2020-03-01] MEDS: traZODone 50 MG TABLET PO SCH (20:59)
[2020-03-02] MEDS: oxyCODONE/ACETAMINOPHEN 5-325 MG TABLET PO PRN ×3 (04:33→17:08)
[2020-03-02 05:38] LABS: Basophils % 0.4 % (0.0-0.8); Eosinophils % 1.8 % (0.00-10.9); Hemoglobin 9.3 GM/DL (14.0-18.0); Immature Granulocytes % 0.4 %; Immature Granulocytes Absolute 0.01 #; Lymphocytes # 1.1 10*3/uL (1.4-4.0); Lymphocytes % 49.6 % (21.2-54.2); Mean Corpuscular HGB Conc 34.4 GM/DL (32-36); Mean Corpuscular Volume 120.5 FL (87-102); Mean Platelet Volume 10.4 FL (9.6-12.0); Monocytes % 2.2 % (1.7-12.7); Neutrophils % 45.6 % (38.7-73.9); Platelet Count 194 T/CUMM (130-400); Red Blood Count 2.24 MC/CUMM (3.8-5.5); Red Cell Distribution Width 20.4 % (9.3-17.3); White Blood Count 2.3 T/CUMM (4-12)
[2020-03-02 06:31] LABS: Atypical Lymphocytes Few; Band Neutrophils 2 % (0-10); Eosinophils 2 % (0-10); Hypochromasia Slight; Lymphocytes 48 % (20-55); Macrocytosis 1+; Nucleated Red Blood Cells 1 (0-5); Platelet Estimate Normal; Segmented Neutrophils 45 % (50-85); Total Cells Counted 100
[2020-03-02] MEDS: INSULIN REGULAR 100 UNIT/ML SUBCUT SCH ×4 (09:06→21:26)
[2020-03-02] MEDS: RANOLAZINE 500 MG TABLET PO SCH ×2 (10:13→20:41)
[2020-03-02] MEDS: FENOFIBRATE 145 MG TABLET PO SCH (10:14)
[2020-03-02] MEDS: TAMSULOSIN 0.4 MG CAPSULE PO SCH (10:14)
[2020-03-02] MEDS: levETIRAcetam 250 MG TABLET PO SCH ×2 (10:14→20:43)
[2020-03-02] MEDS: FUROSEMIDE 80 MG TABLET PO SCH ×2 (10:14→15:08)
[2020-03-02] MEDS: CITALOPRAM 20 MG TABLET PO SCH (10:14)
[2020-03-02] MEDS: ASPIRIN CHEW 81 MG TABLET PO SCH (10:14)
[2020-03-02] MEDS: carvediloL 6.25 MG TABLET PO SCH ×2 (10:14→17:08)
[2020-03-02] MEDS: CALCIUM (CARBONATE)/VITAMIN D 500 MG-200 UNIT TABLET PO SCH (10:15)
[2020-03-02] MEDS: LORATADINE 10 MG TABLET PO SCH (10:15)
[2020-03-02] MEDS: ATORVASTATIN 40 MG TABLET PO SCH (10:15)
[2020-03-02] MEDS: PANTOPRAZOLE 40 MG TABLET PO SCH (10:15)
[2020-03-02] MEDS: POLYETHYLENE GLYCOL POWDER 17 GM PACK PO SCH (10:15)
[2020-03-02] MEDS: INSULIN GLARGINE 100 UNIT/ML SUBCUT SCH (10:20)
[2020-03-02] MEDS: DIGOXIN 0.125 MG TABLET PO SCH (15:07)
[2020-03-02] MEDS: FLUTICASONE 50 MCG NASAL SPRAY 16 GM BOTTLE BOTH NARES SCH (18:10)
[2020-03-02] MEDS: QUEtiapine 25 MG TABLET PO SCH (20:42)
[2020-03-02] MEDS: traZODone 50 MG TABLET PO SCH (20:44)
[2020-03-03] MEDS: oxyCODONE/ACETAMINOPHEN 5-325 MG TABLET PO PRN ×3 (05:29→21:02)
[2020-03-03 06:25] LABS: Basophils % 0.5 % (0.0-0.8); Eosinophils % 1.6 % (0.00-10.9); Hematocrit 28.7 VOL% (42.0-52.0); Hemoglobin 9.4 GM/DL (14.0-18.0); Lymphocytes # 0.9 10*3/uL (1.4-4.0); Lymphocytes % 46.6 % (21.2-54.2); Mean Corpuscular HGB Conc 32.8 GM/DL (32-36); Mean Corpuscular Volume 122.1 FL (87-102); Mean Platelet Volume 10.7 FL (9.6-12.0); Monocytes % 1.6 % (1.7-12.7); Neutrophils % 49.7 % (38.7-73.9); Platelet Count 192 T/CUMM (130-400); Red Blood Count 2.35 MC/CUMM (3.8-5.5); Red Cell Distribution Width 20.3 % (9.3-17.3); White Blood Count 1.9 T/CUMM (4-12)
[2020-03-03 06:50] LABS: Hypochromasia 1+; Macrocytosis Slight; Platelet Estimate Adequate
[2020-03-03] MEDS: INSULIN REGULAR 100 UNIT/ML SUBCUT SCH ×4 (09:30→22:46)
[2020-03-03] MEDS: INSULIN GLARGINE 100 UNIT/ML SUBCUT SCH (09:31)
[2020-03-03] MEDS: POLYETHYLENE GLYCOL POWDER 17 GM PACK PO SCH (09:31)
[2020-03-03] MEDS: CALCIUM (CARBONATE)/VITAMIN D 500 MG-200 UNIT TABLET PO SCH (09:32)
[2020-03-03] MEDS: FENOFIBRATE 145 MG TABLET PO SCH (09:32)
[2020-03-03] MEDS: ASPIRIN CHEW 81 MG TABLET PO SCH (09:32)
[2020-03-03] MEDS: TAMSULOSIN 0.4 MG CAPSULE PO SCH (09:32)
[2020-03-03] MEDS: RANOLAZINE 500 MG TABLET PO SCH ×2 (09:32→21:02)
[2020-03-03] MEDS: PANTOPRAZOLE 40 MG TABLET PO SCH (09:32)
[2020-03-03] MEDS: LORATADINE 10 MG TABLET PO SCH (09:32)
[2020-03-03] MEDS: carvediloL 6.25 MG TABLET PO SCH ×2 (09:32→17:07)
[2020-03-03] MEDS: FUROSEMIDE 80 MG TABLET PO SCH ×2 (09:32→17:07)
[2020-03-03] MEDS: levETIRAcetam 250 MG TABLET PO SCH ×2 (09:33→21:02)
[2020-03-03] MEDS: CITALOPRAM 20 MG TABLET PO SCH (09:33)
[2020-03-03] MEDS: ATORVASTATIN 40 MG TABLET PO SCH (09:44)
[2020-03-03] MEDS ORDERED: MAGNESIUM HYDROXIDE SUSP 30 ML UDCUP PO PRN (10:55)
[2020-03-03] MEDS: DIGOXIN 0.125 MG TABLET PO SCH (13:01)
[2020-03-03] MEDS: FLUTICASONE 50 MCG NASAL SPRAY 16 GM BOTTLE BOTH NARES SCH (18:25)
[2020-03-03] MEDS: traZODone 50 MG TABLET PO SCH (21:02)
[2020-03-03] MEDS: QUEtiapine 25 MG TABLET PO SCH (21:02)
[2020-03-04 05:53] LABS: Basophils % 0.6 % (0.0-0.8); Eosinophils % 1.7 % (0.00-10.9); Hematocrit 26.8 VOL% (42.0-52.0); Hemoglobin 8.8 GM/DL (14.0-18.0); Lymphocytes % 54.7 % (21.2-54.2); Mean Corpuscular HGB Conc 32.8 GM/DL (32-36); Mean Corpuscular Volume 120.7 FL (87-102); Mean Platelet Volume 10.6 FL (9.6-12.0); Monocytes % 2.8 % (1.7-12.7); Neutrophils % 40.2 % (38.7-73.9); Platelet Count 175 T/CUMM (130-400); Red Blood Count 2.22 MC/CUMM (3.8-5.5); Red Cell Distribution Width 20.1 % (9.3-17.3); White Blood Count 1.8 T/CUMM (4-12)
[2020-03-04 06:19] LABS: Albumin 3.2 G/DL (3.4-5.0); Bilirubin,Total 1.8 MG/DL (0.2-1.0); Calcium 8.7 MG/DL (8.5-10.1); Osmolality,Calculated 277.8 MOS/KG (273-304); Total Protein 6.7 G/DL (6.4-8.3)
[2020-03-04 06:22] LABS: Eosinophils 1 % (0-10); Hypochromasia 1+; Lymphocytes 53 % (20-55); Ovalocytes Slight; Platelet Estimate Adequate; Segmented Neutrophils 46 % (50-85); Total Cells Counted 100
[2020-03-04 06:23] LABS: Atypical Lymphocytes Few; Macrocytosis Slight
[2020-03-04] MEDS: LORATADINE 10 MG TABLET PO SCH (08:49)
[2020-03-04] MEDS: RANOLAZINE 500 MG TABLET PO SCH ×2 (08:49→20:33)
[2020-03-04] MEDS: TAMSULOSIN 0.4 MG CAPSULE PO SCH (08:49)
[2020-03-04] MEDS: FENOFIBRATE 145 MG TABLET PO SCH (08:49)
[2020-03-04] MEDS: CITALOPRAM 20 MG TABLET PO SCH (08:49)
[2020-03-04] MEDS: CALCIUM (CARBONATE)/VITAMIN D 500 MG-200 UNIT TABLET PO SCH (08:50)
[2020-03-04] MEDS: ASPIRIN CHEW 81 MG TABLET PO SCH (08:50)
[2020-03-04] MEDS: ATORVASTATIN 40 MG TABLET PO SCH (08:50)
[2020-03-04] MEDS: FUROSEMIDE 80 MG TABLET PO SCH ×2 (08:50→16:09)
[2020-03-04] MEDS: INSULIN GLARGINE 100 UNIT/ML SUBCUT SCH (08:51)
[2020-03-04] MEDS: PANTOPRAZOLE 40 MG TABLET PO SCH (08:52)
[2020-03-04] MEDS: INSULIN REGULAR 100 UNIT/ML SUBCUT SCH ×4 (08:52→20:42)
[2020-03-04] MEDS: POLYETHYLENE GLYCOL POWDER 17 GM PACK PO SCH (08:52)
[2020-03-04] MEDS: levETIRAcetam 250 MG TABLET PO SCH ×2 (08:52→20:35)
[2020-03-04] MEDS: carvediloL 6.25 MG TABLET PO SCH ×2 (09:42→17:27)
[2020-03-04] MEDS: oxyCODONE/ACETAMINOPHEN 5-325 MG TABLET PO PRN ×3 (09:42→23:19)
[2020-03-04] MEDS ORDERED: SODIUM CHLORIDE 0.9% 1,000 ML IV PRN (12:16)
[2020-03-04] MEDS: MEROPENEM 500 MG in SODIUM CHLORIDE 0.9% 100 ML IV SCH ×2 (14:18→19:00)
[2020-03-04] MEDS: DIGOXIN 0.125 MG TABLET PO SCH (14:19)
[2020-03-04] MEDS: methylPREDNISolone SOD SUC 40 MG/1 ML VIAL IV SCH ×2 (14:21→23:32)
[2020-03-04] MEDS: FLUTICASONE 50 MCG NASAL SPRAY 16 GM BOTTLE BOTH NARES SCH (18:19)
[2020-03-04] MEDS ORDERED: FUROSEMIDE 20 MG/2 ML VIAL IV ONE (20:10)
[2020-03-04] MEDS: QUEtiapine 25 MG TABLET PO SCH (20:33)
[2020-03-04] MEDS: traZODone 50 MG TABLET PO SCH (20:36)
[2020-03-05] MEDS: MEROPENEM 500 MG in SODIUM CHLORIDE 0.9% 100 ML IV SCH ×2 (01:38→05:54)
[2020-03-05 06:23] LABS: Hematocrit 31.9 VOL% (42.0-52.0); Hemoglobin 10.6 GM/DL (14.0-18.0); Immature Granulocytes % 0.5 %; Immature Granulocytes Absolute 0.01 #; Lymphocytes # 0.6 10*3/uL (1.4-4.0); Lymphocytes % 30.4 % (21.2-54.2); Mean Corpuscular HGB Conc 33.2 GM/DL (32-36); Mean Platelet Volume 10.4 FL (9.6-12.0); Monocytes % 2.4 % (1.7-12.7); NRBC # 0.04 10*3/uL; Neutrophils % 65.7 % (38.7-73.9); Platelet Count 154 T/CUMM (130-400); Red Blood Count 2.75 MC/CUMM (3.8-5.5); White Blood Count 2.1 T/CUMM (4-12)
[2020-03-05 06:55] LABS: Hypochromasia 1+; Microcytosis Slight; Platelet Estimate Adequate
[2020-03-05 08:33] VITALS: BP 120/61
[2020-03-05] MEDS: INSULIN REGULAR 100 UNIT/ML SUBCUT SCH (09:12)
[2020-03-05] MEDS: POLYETHYLENE GLYCOL POWDER 17 GM PACK PO SCH (09:13)
[2020-03-05] MEDS: INSULIN GLARGINE 100 UNIT/ML SUBCUT SCH (09:13)
[2020-03-05] MEDS: RANOLAZINE 500 MG TABLET PO SCH (09:16)
[2020-03-05] MEDS: carvediloL 6.25 MG TABLET PO SCH (09:16)
[2020-03-05] MEDS: ATORVASTATIN 40 MG TABLET PO SCH (09:16)
[2020-03-05] MEDS: ASPIRIN CHEW 81 MG TABLET PO SCH (09:16)
[2020-03-05] MEDS: CALCIUM (CARBONATE)/VITAMIN D 500 MG-200 UNIT TABLET PO SCH (09:16)
[2020-03-05] MEDS: CITALOPRAM 20 MG TABLET PO SCH (09:16)
[2020-03-05] MEDS: FUROSEMIDE 80 MG TABLET PO SCH (09:17)
[2020-03-05] MEDS: LORATADINE 10 MG TABLET PO SCH (09:17)
[2020-03-05] MEDS: TAMSULOSIN 0.4 MG CAPSULE PO SCH (09:17)
[2020-03-05] MEDS: PANTOPRAZOLE 40 MG TABLET PO SCH (09:17)
[2020-03-05] MEDS: FENOFIBRATE 145 MG TABLET PO SCH (09:17)
[2020-03-05] MEDS: levETIRAcetam 250 MG TABLET PO SCH (09:17)
[2020-03-05] MEDS: oxyCODONE/ACETAMINOPHEN 5-325 MG TABLET PO PRN (10:54)
== END 2020-03-05 12:34 | disposition home health service (06) | DRG 291 ==
LOC: EDBD → EDUNIT# → N.EDINP 18:35 → N.ED 18:35 → N.EDINP 22:37 → N.TELEN 02-27 00:04
PROVIDERS: ADMIT Internal Medicine; ATTEND Internal Medicine

== ENCOUNTER 2020-05-30 14:16 | Inpatient (IN) ==
[2020-05-30 14:45] LABS: Basophils % 0.4 % (0.0-0.8); Eosinophils % 0.4 % (0.00-10.9); Hematocrit 31.8 VOL% (42.0-52.0); Hemoglobin 10.5 GM/DL (14.0-18.0); Immature Granulocytes % 0.8 %; Immature Granulocytes Absolute 0.02 #; Lymphocytes # 0.7 10*3/uL (1.4-4.0); Lymphocytes % 30.1 % (21.2-54.2); Mean Corpuscular Volume 121.4 FL (87-102); Monocytes % 5.1 % (1.7-12.7); Neutrophils % 63.2 % (38.7-73.9); Platelet Count 210 T/CUMM (130-400); Red Blood Count 2.62 MC/CUMM (3.8-5.5); Red Cell Distribution Width 23.1 % (9.3-17.3); White Blood Count 2.4 T/CUMM (4-12)
[2020-05-30 14:46] LABS: NRBC # 0.15 10*3/uL
[2020-05-30 15:43] LABS: Albumin 3.4 G/DL (3.4-5.0); Bilirubin,Total 2.7 MG/DL (0.2-1.0); Calcium 8.9 MG/DL (8.5-10.1); Osmolality,Calculated 278.1 MOS/KG (273-304); Potassium 4.7 MMOL/L (3.5-5.1); Total Protein 7.1 G/DL (6.4-8.3)
[2020-05-30] MEDS ORDERED: DEXTROSE 50% 25 GM/50 ML VIAL IV STA (16:07)
[2020-05-30] MEDS ORDERED: DEXTROSE 50% 25 GM/50 ML SYRINGE IV ONE (16:09)
[2020-05-30] MEDS ORDERED: ACETAMINOPHEN 325 MG TABLET PO PRN (16:16)
[2020-05-30] MEDS: ALBUTEROL 2.5 MG/3 ML NEB RESP TX SCH (19:00)
[2020-05-30] MEDS: DOCUSATE SODIUM 100 MG CAPSULE PO SCH (20:50)
[2020-05-30] MEDS: traMADol 50 MG TABLET PO PRN (22:10)
[2020-05-31] MEDS: ALBUTEROL 2.5 MG/3 ML NEB RESP TX SCH ×6 (00:09→19:47)
[2020-05-31 06:56] LABS: Hematocrit 31.4 VOL% (42.0-52.0); Hemoglobin 10.7 GM/DL (14.0-18.0); Immature Granulocytes % 0.5 %; Immature Granulocytes Absolute 0.01 #; Lymphocytes # 0.4 10*3/uL (1.4-4.0); Lymphocytes % 17.9 % (21.2-54.2); Mean Corpuscular HGB Conc 34.1 GM/DL (32-36); Mean Corpuscular Volume 119.4 FL (87-102); Mean Platelet Volume 11.3 FL (9.6-12.0); Monocytes % 4.1 % (1.7-12.7); NRBC # 0.08 10*3/uL; Neutrophils % 77.5 % (38.7-73.9); Platelet Count 176 T/CUMM (130-400); Red Blood Count 2.63 MC/CUMM (3.8-5.5); Red Cell Distribution Width 22.9 % (9.3-17.3)
[2020-05-31 07:19] LABS: Hypochromasia 1+; Macrocytosis 1+
[2020-05-31 07:20] LABS: Anisocytosis 1+; Platelet Estimate Adequate
[2020-05-31] MEDS ORDERED: FUROSEMIDE 80 MG TABLET PO SCH (08:00)
[2020-05-31 08:40] LABS: Albumin 3.2 G/DL (3.4-5.0); Bilirubin,Total 3.5 MG/DL (0.2-1.0); Calcium 8.9 MG/DL (8.5-10.1); Osmolality,Calculated 280.2 MOS/KG (273-304); Potassium 4.9 MMOL/L (3.5-5.1); Total Protein 7.2 G/DL (6.4-8.3)
[2020-05-31] MEDS: levETIRAcetam 250 MG TABLET PO SCH ×2 (08:52→20:59)
[2020-05-31] MEDS: POLYETHYLENE GLYCOL POWDER 17 GM PACK PO SCH (08:53)
[2020-05-31] MEDS: ASPIRIN CHEW 81 MG TABLET PO SCH (08:57)
[2020-05-31] MEDS: CITALOPRAM 20 MG TABLET PO SCH (08:57)
[2020-05-31] MEDS: RANOLAZINE 500 MG TABLET PO SCH ×2 (08:58→20:59)
[2020-05-31] MEDS: DOCUSATE SODIUM 100 MG CAPSULE PO SCH ×2 (08:58→20:58)
[2020-05-31] MEDS: TAMSULOSIN 0.4 MG CAPSULE PO SCH (08:58)
[2020-05-31] MEDS: ASCORBIC ACID 500 MG TABLET PO SCH (08:58)
[2020-05-31] MEDS: PANTOPRAZOLE 40 MG TABLET PO SCH (08:58)
[2020-05-31] MEDS: carvediloL 6.25 MG TABLET PO SCH ×2 (08:58→20:58)
[2020-05-31] MEDS ORDERED: levETIRAcetam 250 MG TABLET PO SCH (09:00)
[2020-05-31 09:58] LABS: Hepatitis B Core IgM Quant 0.19 Index; Hepatitis B Surface Ag Quant < 0.10 Index; Hepatitis B Surface Ag Result Non-Reactive (NonReactive); Hepatitis C Virus Ab Quant 0.15 Index; Hepatitis C Virus Ab Result Non-Reactive (NonReactive)
[2020-05-31] MEDS: DEXTROSE 5% NACL 0.45% 1,000 ML IV SCH (10:17)
[2020-05-31] MEDS: traMADol 50 MG TABLET PO PRN (10:18)
[2020-05-31] MEDS: FUROSEMIDE 40 MG/4 ML VIAL IV SCH (17:18)
[2020-05-31] MEDS: oxyCODONE IR 5 MG TABLET PO PRN (20:57)
[2020-05-31] MEDS: QUEtiapine 25 MG TABLET PO SCH (20:58)
[2020-06-01] MEDS: ALBUTEROL 2.5 MG/3 ML NEB RESP TX SCH ×7 (00:31→23:15)
[2020-06-01] MEDS: FLUTICASONE 50 MCG NASAL SPRAY 16 GM BOTTLE BOTH NARES SCH ×2 (00:34→21:25)
[2020-06-01 00:39] LABS: Bacteria,Urine Occasional /HPF (Few); Bilirubin,Urine Negative (Negative); Blood, Urine Negative (Negative); Glucose,Urine (UA) Negative (Negative); Hyaline Casts,Urine 32 /LPF (0-3); Ketones,Urine Negative (Negative); Mucus,Urine Occasional /LPF (Occasional); Nitrite,Urine Negative (Negative); Protein,Urine Negative; RBC,Urine 2 /HPF (0-4); Renal Epithelial Cells,Urine Occasional /HPF (<1); Squamous Epithelial Cell,Urine Occasional /HPF (0-10); Urine Appearance CLEAR (Clear); Urine Color Amber (Yellow); Urine Specific Gravity 1.014 (1.001-1.035); WBC,Urine 15 /HPF (0-6)
[2020-06-01 05:57] LABS: Basophils % 0.4 % (0.0-0.8); Eosinophils % 0.4 % (0.00-10.9); Hematocrit 28.2 VOL% (42.0-52.0); Hemoglobin 9.7 GM/DL (14.0-18.0); Immature Granulocytes % 0.8 %; Immature Granulocytes Absolute 0.02 #; Lymphocytes # 0.3 10*3/uL (1.4-4.0); Lymphocytes % 13.7 % (21.2-54.2); Mean Corpuscular HGB Conc 34.4 GM/DL (32-36); Mean Platelet Volume 11.7 FL (9.6-12.0); Monocytes % 2.9 % (1.7-12.7); NRBC # 0.06 10*3/uL; Neutrophils % 81.8 % (38.7-73.9); Platelet Count 144 T/CUMM (130-400); Red Blood Count 2.41 MC/CUMM (3.8-5.5); Red Cell Distribution Width 22.3 % (9.3-17.3); White Blood Count 2.4 T/CUMM (4-12)
[2020-06-01 06:12] LABS: Osmolality,Calculated 282.1 MOS/KG (273-304); Potassium 5.2 MMOL/L (3.5-5.1)
[2020-06-01 06:34] LABS: Bilirubin,Total 5.3 MG/DL (0.2-1.0); Calcium 8.7 MG/DL (8.5-10.1); Osmolality,Calculated 285.8 MOS/KG (273-304); Potassium 5.3 MMOL/L (3.5-5.1); Total Protein 6.6 G/DL (6.4-8.3)
[2020-06-01 07:09] LABS: Albumin 3.1 G/DL (3.4-5.0); Bilirubin,Direct 4.19 MG/DL (0.0-0.20); Bilirubin,Indirect 1.4 MG/DL (0.0-1.0); Bilirubin,Total 5.6 MG/DL (0.2-1.0); Total Protein 6.6 G/DL (6.4-8.3)
[2020-06-01 07:09] LABS: Band Neutrophils 9 % (0-10); Hypochromasia 1+; Lymphocytes 9 % (20-55); Metamyelocytes 1 %; Nucleated Red Blood Cells 2 (0-5); Segmented Neutrophils 76 % (50-85); Total Cells Counted 100
[2020-06-01 07:10] LABS: Anisocytosis 1+; Macrocytosis 1+; Platelet Estimate Adequate; Target Cells Slight
[2020-06-01] MEDS: FUROSEMIDE 40 MG/4 ML VIAL IV SCH (08:58)
[2020-06-01 09:53] LABS: INR 2.3
[2020-06-01] MEDS ORDERED: PIPERACILLIN/TAZOBACTAM 2,250 MG in SODIUM CHLORIDE 0.9% 100 ML IV SCH (10:00)
[2020-06-01 10:03] LABS: PT Patient Result 23.5 SECS (9.8-11.9)
[2020-06-01] MEDS: carvediloL 6.25 MG TABLET PO SCH ×2 (10:55→20:30)
[2020-06-01] MEDS: DOCUSATE SODIUM 100 MG CAPSULE PO SCH ×2 (10:55→20:30)
[2020-06-01] MEDS: CITALOPRAM 20 MG TABLET PO SCH (10:55)
[2020-06-01] MEDS: ASPIRIN CHEW 81 MG TABLET PO SCH (10:55)
[2020-06-01] MEDS: ASCORBIC ACID 500 MG TABLET PO SCH (10:56)
[2020-06-01] MEDS: TAMSULOSIN 0.4 MG CAPSULE PO SCH (10:56)
[2020-06-01] MEDS: POLYETHYLENE GLYCOL POWDER 17 GM PACK PO SCH (10:56)
[2020-06-01] MEDS: PANTOPRAZOLE 40 MG TABLET PO SCH (10:56)
[2020-06-01] MEDS: RANOLAZINE 500 MG TABLET PO SCH ×2 (10:56→20:30)
[2020-06-01] MEDS: levETIRAcetam 250 MG TABLET PO SCH ×3 (10:56→20:30)
[2020-06-01] MEDS: DEXTROSE 5% NACL 0.45% 1,000 ML IV SCH (11:01)
[2020-06-01] MEDS: PIPERACILLIN/TAZOBACTAM 3,375 MG in SODIUM CHLORIDE 0.9% 100 ML IV SCH ×2 (11:01→17:22)
[2020-06-01] MEDS: oxyCODONE IR 5 MG TABLET PO PRN (19:56)
[2020-06-01] MEDS: traZODone 50 MG TABLET PO PRN (19:57)
[2020-06-01] MEDS: ONDANSETRON 4 MG/2 ML VIAL IV PRN (20:10)
[2020-06-01] MEDS: QUEtiapine 25 MG TABLET PO SCH (20:30)
[2020-06-02] MEDS: PIPERACILLIN/TAZOBACTAM 3,375 MG in SODIUM CHLORIDE 0.9% 100 ML IV SCH ×3 (01:58→17:31)
[2020-06-02] MEDS: oxyCODONE IR 5 MG TABLET PO PRN ×2 (02:10→20:27)
[2020-06-02] MEDS: ALBUTEROL 2.5 MG/3 ML NEB RESP TX SCH ×6 (03:00→23:36)
[2020-06-02 05:59] LABS: Eosinophils % 0.5 % (0.00-10.9); Hematocrit 26.3 VOL% (42.0-52.0); Hemoglobin 9.1 GM/DL (14.0-18.0); Immature Granulocytes % 0.5 %; Immature Granulocytes Absolute 0.01 #; Lymphocytes # 0.3 10*3/uL (1.4-4.0); Lymphocytes % 15.2 % (21.2-54.2); Mean Corpuscular HGB Conc 34.6 GM/DL (32-36); Mean Corpuscular Volume 114.8 FL (87-102); Mean Platelet Volume 11.8 FL (9.6-12.0); Monocytes % 2.5 % (1.7-12.7); NRBC # 0.04 10*3/uL; Neutrophils % 81.3 % (38.7-73.9); Platelet Count 144 T/CUMM (130-400); Red Blood Count 2.29 MC/CUMM (3.8-5.5)
[2020-06-02 06:31] LABS: Band Neutrophils 6 % (0-10); Lymphocytes 15 % (20-55); Metamyelocytes 1 %; Nucleated Red Blood Cells 1 (0-5); Segmented Neutrophils 78 % (50-85); Total Cells Counted 100
[2020-06-02 06:34] LABS: Hypochromasia Slight; Ovalocytes 1+; Platelet Estimate Adequate; Reactive Lymphocytes Few
[2020-06-02 06:35] LABS: Albumin 2.8 G/DL (3.4-5.0); Bilirubin,Total 4.6 MG/DL (0.2-1.0); Calcium 8.4 MG/DL (8.5-10.1); Osmolality,Calculated 290.4 MOS/KG (273-304); Potassium 4.7 MMOL/L (3.5-5.1); Total Protein 6.3 G/DL (6.4-8.3)
[2020-06-02 06:40] LABS: Total Protein 6.3 G/DL (6.4-8.3); Uric Acid 13.3 MG/DL (3.5-7.2)
[2020-06-02 06:40] LABS: Parathyroid Hormone Intact 48.9 PG/ML (18.4-80.1)
[2020-06-02 06:45] LABS: Folate 18.7 NG/ML (5.38-24.0); Vitamin B12 > 2000 PG/ML (211-911)
[2020-06-02 07:32] LABS: Protein/Creatinine Ratio,Urine 2.9 RATIO
[2020-06-02] MEDS: CITALOPRAM 20 MG TABLET PO SCH (09:36)
[2020-06-02] MEDS: levETIRAcetam 250 MG TABLET PO SCH ×2 (09:36→20:26)
[2020-06-02] MEDS: ASPIRIN CHEW 81 MG TABLET PO SCH (09:36)
[2020-06-02] MEDS: carvediloL 6.25 MG TABLET PO SCH ×2 (09:36→20:26)
[2020-06-02] MEDS: RANOLAZINE 500 MG TABLET PO SCH ×2 (09:36→20:26)
[2020-06-02] MEDS: DOCUSATE SODIUM 100 MG CAPSULE PO SCH ×2 (09:36→20:26)
[2020-06-02] MEDS: PANTOPRAZOLE 40 MG TABLET PO SCH (09:36)
[2020-06-02] MEDS: ASCORBIC ACID 500 MG TABLET PO SCH (09:37)
[2020-06-02] MEDS: TAMSULOSIN 0.4 MG CAPSULE PO SCH (09:37)
[2020-06-02] MEDS: POLYETHYLENE GLYCOL POWDER 17 GM PACK PO SCH (09:37)
[2020-06-02] MEDS ORDERED: GLUCAGON 1 MG VIAL IM PRN (15:38)
[2020-06-02] MEDS ORDERED: DEXTROSE 50% 25 GM/50 ML VIAL IV PRN (15:38)
[2020-06-02] MEDS: INSULIN REGULAR 100 UNIT/ML SUBCUT SCH ×2 (16:10→21:54)
[2020-06-02] MEDS: DEXTROSE 5% NACL 0.45% 1,000 ML IV SCH (17:09)
[2020-06-02] MEDS: SODIUM CHLORIDE 0.9% 1,000 ML IV SCH (17:09)
[2020-06-02] MEDS: FLUTICASONE 50 MCG NASAL SPRAY 16 GM BOTTLE BOTH NARES SCH (20:26)
[2020-06-02] MEDS: ONDANSETRON 4 MG/2 ML VIAL IV PRN (20:27)
[2020-06-02] MEDS: traZODone 50 MG TABLET PO PRN (20:27)
[2020-06-02] MEDS: QUEtiapine 25 MG TABLET PO SCH (20:27)
[2020-06-03] MEDS: ALBUTEROL 2.5 MG/3 ML NEB RESP TX SCH ×6 (03:14→23:35)
[2020-06-03] MEDS: PIPERACILLIN/TAZOBACTAM 3,375 MG in SODIUM CHLORIDE 0.9% 100 ML IV SCH ×3 (03:23→17:49)
[2020-06-03 06:11] LABS: Albumin 2.7 G/DL (3.4-5.0); Bilirubin,Total 4.1 MG/DL (0.2-1.0); Calcium 8.7 MG/DL (8.5-10.1); Osmolality,Calculated 296.2 MOS/KG (273-304); Potassium 4.6 MMOL/L (3.5-5.1); Total Protein 6.4 G/DL (6.4-8.3)
[2020-06-03] MEDS: INSULIN REGULAR 100 UNIT/ML SUBCUT SCH ×4 (09:31→22:41)
[2020-06-03] MEDS: ASCORBIC ACID 500 MG TABLET PO SCH (09:32)
[2020-06-03] MEDS: TAMSULOSIN 0.4 MG CAPSULE PO SCH (09:32)
[2020-06-03] MEDS: levETIRAcetam 250 MG TABLET PO SCH ×2 (09:32→20:00)
[2020-06-03] MEDS: CITALOPRAM 20 MG TABLET PO SCH (09:32)
[2020-06-03] MEDS: carvediloL 6.25 MG TABLET PO SCH ×2 (09:32→20:00)
[2020-06-03] MEDS: DOCUSATE SODIUM 100 MG CAPSULE PO SCH ×2 (09:32→20:00)
[2020-06-03] MEDS: PANTOPRAZOLE 40 MG TABLET PO SCH (09:33)
[2020-06-03] MEDS: POLYETHYLENE GLYCOL POWDER 17 GM PACK PO SCH (09:33)
[2020-06-03] MEDS: RANOLAZINE 500 MG TABLET PO SCH ×2 (09:33→20:00)
[2020-06-03] MEDS: ASPIRIN CHEW 81 MG TABLET PO SCH (09:34)
[2020-06-03] MEDS: oxyCODONE IR 5 MG TABLET PO PRN (12:17)
[2020-06-03] MEDS: SODIUM CHLORIDE 0.9% 1,000 ML IV SCH (15:51)
[2020-06-03] MEDS: traMADol 50 MG TABLET PO PRN (19:58)
[2020-06-03] MEDS: traZODone 50 MG TABLET PO PRN (19:59)
[2020-06-03] MEDS: QUEtiapine 25 MG TABLET PO SCH (21:56)
[2020-06-03] MEDS: FLUTICASONE 50 MCG NASAL SPRAY 16 GM BOTTLE BOTH NARES SCH (21:58)
[2020-06-04] MEDS: ALBUTEROL 2.5 MG/3 ML NEB RESP TX SCH ×5 (03:23→18:48)
[2020-06-04] MEDS: PIPERACILLIN/TAZOBACTAM 3,375 MG in SODIUM CHLORIDE 0.9% 100 ML IV SCH (03:30)
[2020-06-04 06:35] LABS: Hemoglobin 8.4 GM/DL (14.0-18.0); Immature Granulocytes % 0.7 %; Immature Granulocytes Absolute 0.01 #; Lymphocytes # 0.2 10*3/uL (1.4-4.0); Lymphocytes % 16.1 % (21.2-54.2); Mean Corpuscular Volume 114.3 FL (87-102); Mean Platelet Volume 12.2 FL (9.6-12.0); NRBC # 0.06 10*3/uL; Neutrophils % 79.2 % (38.7-73.9); Platelet Count 94 T/CUMM (130-400); Red Cell Distribution Width 22.3 % (9.3-17.3); White Blood Count 1.5 T/CUMM (4-12)
[2020-06-04 07:10] LABS: Band Neutrophils 5 % (0-10); Eosinophils 3 % (0-10); Hypochromasia 1+; Lymphocytes 20 % (20-55); Nucleated Red Blood Cells 1 (0-5); Platelet Estimate Decreased; Segmented Neutrophils 70 % (50-85); Total Cells Counted 100
[2020-06-04 07:15] LABS: Albumin 2.2 G/DL (3.4-5.0); Bilirubin,Total 2.4 MG/DL (0.2-1.0); Calcium 7.1 MG/DL (8.5-10.1); Osmolality,Calculated 297.4 MOS/KG (273-304); Potassium 3.9 MMOL/L (3.5-5.1); Total Protein 5.4 G/DL (6.4-8.3)
[2020-06-04 07:52] LABS: Total Protein (Chem) 6.3 G/DL (6.4-8.3)
[2020-06-04 07:53] LABS: Immunoglobulin A (Chem) 183 MG/DL (70-400); Immunoglobulin G (Chem) 1310 MG/DL (700-1600); Immunoglobulin M (Chem) 70 MG/DL (40-230)
[2020-06-04] MEDS ORDERED: SODIUM CHLORIDE 0.9% 1,000 ML IV PRN (08:52)
[2020-06-04] MEDS: RANOLAZINE 500 MG TABLET PO SCH ×2 (09:09→21:17)
[2020-06-04] MEDS: TAMSULOSIN 0.4 MG CAPSULE PO SCH (09:09)
[2020-06-04] MEDS: INSULIN REGULAR 100 UNIT/ML SUBCUT SCH ×4 (09:10→21:18)
[2020-06-04] MEDS: ASPIRIN CHEW 81 MG TABLET PO SCH (09:10)
[2020-06-04] MEDS: POLYETHYLENE GLYCOL POWDER 17 GM PACK PO SCH (09:10)
[2020-06-04] MEDS: PANTOPRAZOLE 40 MG TABLET PO SCH (09:10)
[2020-06-04] MEDS: levETIRAcetam 250 MG TABLET PO SCH ×2 (09:11→21:18)
[2020-06-04] MEDS: ASCORBIC ACID 500 MG TABLET PO SCH (09:11)
[2020-06-04] MEDS: carvediloL 6.25 MG TABLET PO SCH ×2 (09:11→21:20)
[2020-06-04] MEDS: CITALOPRAM 20 MG TABLET PO SCH (09:11)
[2020-06-04] MEDS: DOCUSATE SODIUM 100 MG CAPSULE PO SCH ×2 (09:11→21:18)
[2020-06-04] MEDS: SODIUM CHLORIDE 0.9% 1,000 ML IV SCH (09:12)
[2020-06-04 10:02] LABS: Albumin (SPE) Rel % 63.6 %; Alpha 1 (SPE) 0.3 G/DL (0.1-0.4); Alpha 1 (SPE) Rel % 4.3 %; Alpha 2 (SPE) 0.4 G/DL (0.4-1.0); Alpha 2 (SPE) Rel % 6.8 %; Beta (SPE) 0.5 G/DL (0.5-1.1); Beta (SPE) Rel % 7.6 %; Gamma (SPE) 1.1 G/DL (0.7-1.7); Gamma (SPE) Rel % 17.7 %
[2020-06-04] MEDS: LACTULOSE 20 GM/30 ML UDCUP PO SCH ×2 (13:09→21:18)
[2020-06-04] MEDS: oxyCODONE IR 5 MG TABLET PO PRN (14:31)
[2020-06-04] MEDS: traZODone 50 MG TABLET PO PRN (21:18)
[2020-06-04] MEDS: QUEtiapine 25 MG TABLET PO SCH (21:18)
[2020-06-04] MEDS: FLUTICASONE 50 MCG NASAL SPRAY 16 GM BOTTLE BOTH NARES SCH (21:21)
[2020-06-05] MEDS: ALBUTEROL 2.5 MG/3 ML NEB RESP TX SCH ×6 (00:22→18:57)
[2020-06-05 04:39] LABS: Eosinophils % 0.3 % (0.00-10.9); Hematocrit 30.5 VOL% (42.0-52.0); Immature Granulocytes % 0.6 %; Immature Granulocytes Absolute 0.02 #; Lymphocytes # 0.3 10*3/uL (1.4-4.0); Lymphocytes % 10.9 % (21.2-54.2); Mean Corpuscular HGB Conc 34.8 GM/DL (32-36); Mean Corpuscular Volume 110.5 FL (87-102); Mean Platelet Volume 12.7 FL (9.6-12.0); Monocytes % 2.6 % (1.7-12.7); NRBC # 0.12 10*3/uL; Neutrophils % 85.6 % (38.7-73.9); Platelet Count 109 T/CUMM (130-400); Red Cell Distribution Width 25.8 % (9.3-17.3)
[2020-06-05 04:55] LABS: Red Blood Count 2.76 MC/CUMM (3.8-5.5); White Blood Count 3.1 T/CUMM (4-12)
[2020-06-05 04:56] LABS: Hemoglobin 10.6 GM/DL (14.0-18.0)
[2020-06-05 05:01] LABS: Band Neutrophils 7 % (0-10); Eosinophils 1 % (0-10); Lymphocytes 19 % (20-55); Nucleated Red Blood Cells 9 (0-5); Platelet Estimate Decreased; Segmented Neutrophils 72 % (50-85); Total Cells Counted 100
[2020-06-05 05:02] LABS: Hypochromasia 1+
[2020-06-05 05:06] LABS: Albumin 2.6 G/DL (3.4-5.0); Bilirubin,Total 3.1 MG/DL (0.2-1.0); Calcium 8.3 MG/DL (8.5-10.1); Osmolality,Calculated 303.1 MOS/KG (273-304); Potassium 5.8 MMOL/L (3.5-5.1); Total Protein 6.7 G/DL (6.4-8.3)
[2020-06-05] MEDS: oxyCODONE IR 5 MG TABLET PO PRN ×4 (07:50→20:45)
[2020-06-05] MEDS: SODIUM CHLORIDE 0.9% 1,000 ML IV SCH (07:50)
[2020-06-05 09:22] LABS: Immuno Free Light Chain Kappa 6.96 MG/DL (0.33-1.94); Immuno Free Light Chain Lambda 4.37 MG/DL (0.57-2.63); Immuno Free Light Chain Ratio 1.59 MG/DL (0.26-1.65)
[2020-06-05] MEDS: POLYETHYLENE GLYCOL POWDER 17 GM PACK PO SCH (09:54)
[2020-06-05] MEDS: LACTULOSE 20 GM/30 ML UDCUP PO SCH ×2 (09:54→21:11)
[2020-06-05] MEDS: INSULIN REGULAR 100 UNIT/ML SUBCUT SCH ×4 (09:54→21:11)
[2020-06-05] MEDS: RANOLAZINE 500 MG TABLET PO SCH ×2 (09:55→20:49)
[2020-06-05] MEDS: DOCUSATE SODIUM 100 MG CAPSULE PO SCH ×2 (09:55→21:11)
[2020-06-05] MEDS: ASCORBIC ACID 500 MG TABLET PO SCH (09:55)
[2020-06-05] MEDS: CITALOPRAM 20 MG TABLET PO SCH (09:55)
[2020-06-05] MEDS: PANTOPRAZOLE 40 MG TABLET PO SCH (09:55)
[2020-06-05] MEDS: ASPIRIN CHEW 81 MG TABLET PO SCH (09:55)
[2020-06-05] MEDS: levETIRAcetam 250 MG TABLET PO SCH ×2 (09:55→20:49)
[2020-06-05] MEDS: TAMSULOSIN 0.4 MG CAPSULE PO SCH (09:56)
[2020-06-05] MEDS: carvediloL 6.25 MG TABLET PO SCH ×2 (09:57→21:11)
[2020-06-05 13:16] LABS: Smooth Muscle Antibody Negative (Negative)
[2020-06-05] MEDS: QUEtiapine 25 MG TABLET PO SCH (20:49)
[2020-06-05] MEDS: FLUTICASONE 50 MCG NASAL SPRAY 16 GM BOTTLE BOTH NARES SCH (21:11)
[2020-06-05 21:47] VITALS: BP 111/70
[2020-06-06 12:04] LABS: Antinuclear Ab, S 0.8 U
== END 2020-06-05 21:38 | disposition expired | DRG 291 ==
LOC: EDUNIT# → EDBD → N.ED 14:16 → N.EDINP 16:09 → N.TELES 17:03
PROVIDERS: ADMIT Internal Medicine; ATTEND Internal Medicine